=== PATIENT | female | born 1940 | race Caucasian/White ===

== ENCOUNTER → 2019-07-16 10:49 | Outpatient (ROUT) | payer MEDICARE, OTHER, SELFPAY ==
[2019-07-16 11:02] LABS: INR 2.8 (0.9-1.3); Prothrombin Time 31.6 SECONDS (10.1-12.7)
== END ==
PROVIDERS: Visit Provider Student in an Organized Health Care Education/Training Program
DX: Z79.01 Long term (current) use of anticoagulants (principal)
CPT/HCPCS: 85610

== ENCOUNTER → 2020-03-02 15:05 | Outpatient (CLI) | payer MEDICARE, OTHER, SELFPAY ==
--- NOTE | 2020-03-02 | DI.RAD.S_ITS ---
PROCEDURE: XR CHEST 2V INDICATIONS: Other forms of dyspnea TECHNIQUE: 2 views of the chest were acquired. COMPARISON: [facility], , CHEST 1 VIEW, 12/09/2016, 12:48. FINDINGS: Surgical changes and devices: Postsurgical changes from ORIF of the left humeral head and proximal humeral shaft. Lungs and pleura: Mild diffuse interstitial prominence. No focal consolidation. Hyperaeration with flattening of the hemidiaphragms and increased retrosternal clear space compatible with changes of chronic obstructive pulmonary physiology. No pleural effusions or pneumothorax. Mediastinum: Mediastinal contours are stable. Heart size is normal. Large hiatal hernia is again noted. Bones and chest wall: No suspicious bony abnormalities. Soft tissues appear unremarkable. IMPRESSION: 1. Chest without acute cardiopulmonary abnormalities. 2. Findings suggestive of chronic obstructive pulmonary physiology. 3. Large hiatal hernia. Dictated by: Livan Boucher M.D. on 03/02/2020 at 17:01 Approved by: Livan Boucher M.D. on 03/02/2020 at 17:04
== END ==
PROVIDERS: Family Provider Family Medicine; PCP Student in an Organized Health Care Education/Training Program; Referring Provider Student in an Organized Health Care Education/Training Program; Visit Provider Student in an Organized Health Care Education/Training Program
DX: R06.09 Other forms of dyspnea (principal); K44.9 Diaphragmatic hernia without obstruction or gangrene
CPT/HCPCS: 71046

== ENCOUNTER → 2020-03-05 09:52 | Outpatient (CLI) | payer MEDICARE, OTHER, SELFPAY ==
--- NOTE | 2020-03-05 | DI.CT.S_ITS ---
PROCEDURE: CT ABDOMEN PELVIS W CON INDICATIONS: anemia, unspecfied TECHNIQUE: After the administration of intravenous contrast, 5 mm thick sections acquired from the diaphragm to the symphysis. 5 mm coronal and sagittal reformats were acquired. For radiation dose reduction, the following was used: automated exposure control, adjustment of mA and/or kV according to patient size. COMPARISON: None. FINDINGS: Image quality: Excellent. ABDOMEN: Lung bases: Lung bases are clear. Heart size is normal. There is a very large hiatal hernia with gastric inversion open (greater curvature of the stomach directed cephalad close) extending into the lower chest at the midline behind the heart. This is not associated with evidence of gastric ischemic injury or infarction. It likely is chronic. Solid organs: Liver is normal in size and enhancement. Gallbladder appears previously resected . Biliary system is non dilated. Pancreas enhances normally. Spleen is normal in size and enhancement. No adrenal nodules. Kidneys demonstrate normal size and enhancement, without hydronephrosis. Peritoneum and bowel: Bowel loops demonstrate normal wall thickness and caliber. No free fluid or air. Nodes and vessels: No retroperitoneal or mesenteric adenopathy by size criteria. Aorta and inferior vena cava are normal in size. Miscellaneous: No ventral hernias. PELVIS: Genitourinary: Bladder wall thickness is normal. Miscellaneous: No inguinal hernias or adenopathy. Bones: No suspicious bony lesions. No vertebral body compression fractures. IMPRESSION: Gastric inversion noted with a very large associated hiatal hernia extending into the lower chest at the midline posteriorly. At this time ischemic injury is not found. An area of gastric ulceration is not identified. Episodic ischemic injury related to this degree of herniation could conceivably explain episodic blood loss. There is potential risk of gastric infarction in the setting of this degree of gastric inversion. Surgical consultation is recommended. Through the visualized colon stool is present to the degree that accurate detection of a colonic malignancy would be very limited. Prior cholecystectomy. Dictated by: Eric Jiménez M.D. on 03/05/2020 at 11:53 Approved by: Eric Jiménez M.D. on 03/05/2020 at 11:56
== END ==
PROVIDERS: Family Provider Family Medicine; PCP Student in an Organized Health Care Education/Training Program; Referring Provider Student in an Organized Health Care Education/Training Program; Visit Provider Student in an Organized Health Care Education/Training Program
DX: D64.9 Anemia, unspecified (principal); K44.9 Diaphragmatic hernia without obstruction or gangrene; K31.89 Other diseases of stomach and duodenum; Z90.49 Acquired absence of other specified parts of digestive tract
CPT/HCPCS: 74177

== ENCOUNTER 2020-03-22 16:57 | Observation (INO) | payer MEDICARE, OTHER, SELFPAY ==
[2020-03-22] VITALS (21 sets, daily range): BP systolic 117–161; BP diastolic 56–77; PULSE 82–113; RESP 12–32; TEMP 36.4–37.4; O2SAT 98–100; BMI 34.8
--- NOTE | 2020-03-22 17:13 | DI.RAD.S_ITS ---
PROCEDURE: XR CHEST 1V INDICATIONS: chest pain TECHNIQUE: One view of the chest was acquired. COMPARISON: [facility], CHEST 1 VIEW, 07/17/2013, 13:18. [facility], CHEST 1 VIEW, 12/09/2016, 12:48. [facility], , XR CHEST 2V, 03/02/2020, 14:11. FINDINGS: Surgical changes and devices: There is partial visualization left proximal humeral hardware. A remote left proximal humerus fracture can be seen. Lungs and pleura: On this semiupright portable chest examination, no large pneumothorax or large pleural effusions are seen. No focal infiltrates are seen. Mediastinum: The cardiac contours are within normal limits. The aorta demonstrates calcification and tortuosity. A large hiatal hernia is seen, with an air-fluid. Bones and chest wall: No suspicious bony lesions. Age-appropriate bony degenerative changes are seen. Overlying soft tissues appear unremarkable. IMPRESSION: No acute cardiopulmonary process is seen. Large hiatal hernia, with an air-fluid level. Postoperative and degenerative changes are seen. Dictated by: Refugio Mckee M.D. on 03/22/2020 at 17:29 Approved by: Refugio Mckee M.D. on 03/22/2020 at 17:30
--- NOTE | 2020-03-22 17:27 | ED_ITS ---
HPI - GI Bleed General Chief complaint: GI Bleed Stated complaint: Low Oxygen And Hemoglobin, Sent By Dr Messer Time Seen by Provider: 03/22/20 17:00 Source: patient Mode of arrival: Wheelchair History of Present Illness HPI Narrative: 79-year-old femaleNonsmoker with history of chronic anemia, on Eliquis for prior DVT presents at the request of Oncology after noting her to be significantly short of breath and fatigued with minimal exertion. She was sent there for referral and is scheduled for iron infusion starting on Sunday. She has become so short of breath that she cannot even walk across the room. She has had the cough as noted but no fever or chills. Related Data Home Medications Medication Instructions Recorded Confirmed Eliquis 5 mg BID #0 12/09/16 03/22/20 citalopram 20 mg PO DAILY 03/22/20 03/22/20 omeprazole 20 mg PO DAILY 03/22/20 03/22/20 Previous Rx's Medication Instructions Recorded hydrocodone-acetaminophen [[place]ion] 1 - 2 tab PO Q6HP PRN #20 tab 12/09/16 Allergies Allergy/AdvReac Type Severity Reaction Status Date / Time codeine [CODEINE] Allergy Unknown Unverified 09/05/17 12:11 Penicillins [PENICILLINS] Allergy Unknown Unverified 09/05/17 12:11 Review of Systems Constitutional Constitutional: Denies chills, Denies fatigue, Denies fever(s), Denies frequent falls, Denies lethargy and Reports weakness Eyes Eyes: Denies change in vision, Denies eye discharge, Denies irritation and Denies loss of vision ENT Ears, Nose, Mouth, and Throat: Denies change in voice, Denies dizziness, Denies neck pain, Denies sore throat and Denies throat swelling Cardiovascular Cardiovascular: Denies chest pain, Denies irregular heart rhythm, Denies lightheadedness, Denies palpitations, Reports dyspnea, Denies dyspnea on exertion and Denies orthopnea Respiratory Respiratory: Denies cough, Reports dyspnea, Denies dyspnea on exertion and Denies wheezing Gastrointestinal Gastrointestinal: Denies abdominal pain, Denies change in bowel habits, Denies diarrhea, Denies nausea and Denies vomiting Musculoskeletal Musculoskeletal: Denies neck pain and Denies numbness Integumentary/Breasts Skin/Breast: Denies pruritus, Denies erythema, Denies rash and Denies wounds Neurologic Neurologic: Denies behavioral changes, Denies confusion, Denies dizziness, Denies frequent falls, Denies loss of vision, Denies numbness and Reports weakness Psychiatric Psychiatric: Denies anxiety, Denies behavioral changes, Denies confusion, Denies depression, Denies homicidal ideation and Denies suicidal ideation Endocrine Endocrine: Denies fatigue, Denies flushing and Denies palpitations Hematologic/Lymphatic Hematologic/Lymphatic: Denies easy bruising Allergic/Immunologic Allergic/Immunologic: Denies urticaria, Denies throat swelling and Denies wh eezing Patient History Medical History Bilateral arm fractures (Acute) Factor V Leiden (Acute) GERD (gastroesophageal reflux disease) (Acute) Hiatal hernia (Acute) Migraine (Acute) Rectocele (Acute) Recurrent deep vein thrombosis (DVT) (Acute) Surgical History History of cholecystectomy (Acute) History of colonoscopy (Acute) History of esophagogastroduodenoscopy (EGD) (Acute) Social History household members: spouse Smoking Status: Never smoker alcohol intake: never Smoking Status: Never smoker Alcohol type: wine Substance Use Type: does not use Exam Narrative Exam Narrative: GENERAL: [79] year old patient appears stated age. Well- nourished, well-developed patient, in mild distress. Minimal exertion results in significant shortness of breath and fatigue HEAD: Atraumatic. Normocephalic. EYES: Pale conjunctiva Pupils equal round and reactive. Extraocular motions intact. No scleral icterus. No injection or drainage. ENT: Nose without bleeding, purulent drainage. Throat without erythema, tonsillar hypertrophy or exudate. Airway patent. NECK: Trachea midline. Non tender CARDIOVASCULAR: Regular rate and rhythm without murmurs, gallops, or rubs. RESPIRATORY: Clear to auscultation. Breath sounds equal bilaterally. No wheezes, rales, or rhonchi. GASTROINTESTINAL: Abdomen soft, non-tender, nondistended. EXTREMITIES: No edema or joint tenderness. BACK: Nontender without deformity or crepitance. No flank tenderness. NEURO: AOx3. SKIN: No rash or erythema of visible areas Initial Vital Signs Initial Vital Signs: Vital Signs Temperature 98.4 F 03/22/20 17:11 Pulse Rate 87 03/22/20 17:11 Respiratory Rate 24 03/22/20 17:11 Blood Pressure 143/72 H 03/22/20 17:11 Pulse Oximetry 100 03/22/20 17:11 Course Orders Ordered: Acetaminophen (Tylenol) 650 mg PO Q6HR PRN PRN Reason: Fever and pain Hydrocodone Bitart/Acetaminophen (Marion 5/325) 1 tab PO Q6H PRN PRN Reason: Pain, Mild (1-3) Citalopram Hydrobromide (Celexa) 20 mg PO DAILY [facility] Naloxone HCl (Narcan) 0.2 mg IV Q2MIN PRN PRN Reason: Opiate Reversal Pantoprazole Sodium (Protonix) 40 mg IV BID [facility] Discontinued Medications Iron Sucrose 200 mg/ Sodium (Chloride) 110 mls @ 220 mls/hr IV NOW ONE Stop: 03/23/20 07:26 Pantoprazole Sodium (Protonix) 20 mg PO DAILY [facility] Consultations Consultation #1: Call to Dr. Jones Vital Signs Vital signs: Vital Signs - 8 hr 03/22/20 17:11 03/22/20 17:15 03/22/20 17:30 Temperature 98.4 F Pulse Rate 92 H 88 82 Respiratory Rate 28 H 24 12 Blood Pressure 143/72 H Pulse Oximetry 99 98 100 03/22/20 17:31 03/22/20 17:45 03/22/20 18:00 Temperature Pulse Rate 85 84 93 H Respiratory Rate 18 22 20 Blood Pressure 117/56 L 120/56 L Pulse Oximetry 99 100 99 03/22/20 18:15 03/22/20 18:30 03/22/20 18:31 Temperature Pulse Rate 87 91 H 90 Respiratory Rate 20 32 H Blood Pressure 154/77 H Pulse Oximetry 100 100 100 03/22/20 18:45 Temperature Pulse Rate 89 Respiratory Rate 24 Blood Pressure Pulse Oximetry 100 MDM - GI Bleed Lab Data Result diagrams: 03/22/20 17:21 03/22/20 17:21 Labs: Lab Results 03/22/20 03/22/20 03/22/20 Range/Units 17:21 17:21 17:21 WBC 6.3 (4.5-11.0) X10^3/uL RBC 3.04 L (4.0-5.2) X10^6/uL Hgb 5.1 L* (12.0-16.0) g/dL Hct 18.4 L* (36-46) % MCV 60.4 L (80-100) fL MCH 16.9 L (26-34) PG MCHC 28.0 L (30-36) % RDW 22.0 H (11.6-14.8) % Plt Count 243 (150-400) X10^3/uL Neut % (Auto) 64.8 (50-75) % Lymph % (Auto) 23.1 L (25-40) % [place] % (Auto) 8.0 (3-14) % Eos % (Auto) 2.2 (2-4) % Baso % (Auto) 1.9 (0-2) % Neut # (Auto) 4100 (7771-4516) /uL Lymph # (Auto) 1500 (8418-5911) /uL [place] # (Auto) 500 (0-900) /uL Eos # (Auto) 100 (0-450) /uL Baso # (Auto) 100 (0-100) /uL RBC Morphology See below Polychromasia 2+ H Hypochromasia 3+ H Microcytosis 3+ H PT 12.9 H (10.1-12.7) SECONDS INR 1.1 (0.9-1.3) APTT 27 (26.4-36.2) SECONDS Sodium 139 (137-145) mmol/L Potassium 3.8 (3.4-5.1) mmol/L Chloride 107 (98-107) mmol/L Carbon Dioxide 27 (22-32) mmol/L BUN 12 (7-17) mg/dL Creatinine 0.70 (0.52-1.04) mg/dL Estimated GFR > 60.0 (>60) mL/min BUN/Creatinine Ratio 17.1 (6-22) Glucose 111 H (80-110) mg/dL Calcium 8.4 (8.4-10.2) mg/dL Magnesium 2.2 (1.6-2.3) mg/dL Total Bilirubin 0.3 (0.2-1.3) mg/dL AST 22 (14-36) IU/L ALT 11 (<35) IU/L Alkaline Phosphatase 105 (38-126) U/L Total Creatine Kinase 67 (30-135) U/L CK-MB (CK-2) TNP CK-MB (CK-2) Rel Index TNP Troponin I < 0.012 (0.01-0.034) ng/mL NT-Pro-B Natriuret Pep (<450) pg/mL Total Protein 6.9 (6.3-8.2) g/dL Albumin 3.7 (3.5-5.0) g/dL Globulin 3.2 (1.7-4.1) g/dL Albumin/Globulin Ratio 1.2 (1.0-2.8) Lipase 42 (23-300) U/L Procalcitonin (<0.5) ng/mL COVID-19 PCR (Negative) Blood Type Antibody Screen Crossmatch 03/22/20 03/22/20 03/22/20 Range/Units 17:21 17:21 17:21 WBC (4.5-11.0) X10^3/uL RBC (4.0-5.2) X10^6/uL Hgb (12.0-16.0) g/dL Hct (36-46) % MCV (80-100) fL MCH (26-34) PG MCHC (30-36) % RDW (11.6-14.8) % Plt Count (150-400) X10^3/uL Neut % (Auto) (50-75) % Lymph % (Auto) (25-40) % [place] % (Auto) (3-14) % Eos % (Auto) (2-4) % Baso % (Auto) (0-2) % Neut # (Auto) (9029-1832) /uL Lymph # (Auto) (1942-0522) /uL [place] # (Auto) (0-900) /uL Eos # (Auto) (0-450) /uL Baso # (Auto) (0-100) /uL RBC Morphology Polychromasia Hypochromasia Microcytosis PT (10.1-12.7) SECONDS INR (0.9-1.3) APTT (26.4-36.2) SECONDS Sodium (137-145) mmol/L Potassium (3.4-5.1) mmol/L Chloride (98-107) mmol/L Carbon Dioxide (22-32) mmol/L BUN (7-17) mg/dL Creatinine (0.52-1.04) mg/dL Estimated GFR (>60) mL/min BUN/Creatinine Ratio (6-22) Glucose (80-110) mg/dL Calcium (8.4-10.2) mg/dL Magnesium (1.6-2.3) mg/dL Total Bilirubin (0.2-1.3) mg/dL AST (14-36) IU/L ALT (<35) IU/L Alkaline Phosphatase (38-126) U/L Total Creatine Kinase (30-135) U/L CK-MB (CK-2) CK-MB (CK-2) Rel Index Troponin I (0.01-0.034) ng/mL NT-Pro-B Natriuret Pep 438 (<450) pg/mL Total Protein (6.3-8.2) g/dL Albumin (3.5-5.0) g/dL Globulin (1.7-4.1) g/dL Albumin/Globulin Ratio (1.0-2.8) Lipase (23-300) U/L Procalcitonin < 0.05 (<0.5) ng/mL COVID-19 PCR (Negative) Blood Type A Positive Antibody Screen Negative Crossmatch See Detail 03/22/20 Range/Units 17:21 WBC (4.5-11.0) X10^3/uL RBC (4.0-5.2) X10^6/uL Hgb (12.0-16.0) g/dL Hct (36-46) % MCV (80-100) fL MCH (26-34) PG MCHC (30-36) % RDW (11.6-14.8) % Plt Count (150-400) X10^3/uL Neut % (Auto) (50-75) % Lymph % (Auto) (25-40) % [place] % (Auto) (3-14) % Eos % (Auto) (2-4) % Baso % (Auto) (0-2) % Neut # (Auto) (9987-6090) /uL Lymph # (Auto) (1277-2175) /uL [place] # (Auto) (0-900) /uL Eos # (Auto) (0-450) /uL Baso # (Auto) (0-100) /uL RBC Morphology Polychromasia Hypochromasia Microcytosis PT (10.1-12.7) SECONDS INR (0.9-1.3) APTT (26.4-36.2) SECONDS Sodium (137-145) mmol/L Potassium (3.4-5.1) mmol/L Chloride (98-107) mmol/L Carbon Dioxide (22-32) mmol/L BUN (7-17) mg/dL Creatinine (0.52-1.04) mg/dL Estimated GFR (>60) mL/min BUN/Creatinine Ratio (6-22) Glucose (80-110) mg/dL Calcium (8.4-10.2) mg/dL Magnesium (1.6-2.3) mg/dL Total Bilirubin (0.2-1.3) mg/dL AST (14-36) IU/L ALT (<35) IU/L Alkaline Phosphatase (38-126) U/L Total Creatine Kinase (30-135) U/L CK-MB (CK-2) CK-MB (CK-2) Rel Index Troponin I (0.01-0.034) ng/mL NT-Pro-B Natriuret Pep (<450) pg/mL Total Protein (6.3-8.2) g/dL Albumin (3.5-5.0) g/dL Globulin (1.7-4.1) g/dL Albumin/Globulin Ratio (1.0-2.8) Lipase (23-300) U/L Procalcitonin (<0.5) ng/mL COVID-19 PCR Negative (Negative) Blood Type Antibody Screen Crossmatch Discharge Plan Departure Patient Disposition: Admitted as Observation Clinical Impression: Anemia Discharge Date/Time: 03/22/20 19:40 Referrals: Verenice Coulter MD [Primary Care Provider] - Admit Date/Time: 03/22/20 19:55 Admit Provider: Verenice Coulter
[2020-03-22 17:39] LABS: INR 1.1 (0.9-1.3); Prothrombin Time 12.9 SECONDS (10.1-12.7)
[2020-03-22 17:41] LABS: PTT Partial Thromboplastin Tim 27 SECONDS (26.4-36.2)
[2020-03-22 17:46] LABS: COVID19 -Nasal RAPID Negative (Negative)
[2020-03-22 17:48] LABS: Add Manual Diff / Slide Review NO; Alanine Aminotransferase 11 IU/L (<35); Albumin 3.7 g/dL (3.5-5.0); Albumin Globulin Ratio 1.2 (1.0-2.8); Alkaline Phosphatase 105 U/L (38-126); Aspartate Aminotransferase 22 IU/L (14-36); BUN Creatinine Ratio 17.1 (6-22); Basophils Absolute Auto 100 /uL (0-100); Basophils Percent Auto 1.9 % (0-2); Bilirubin Total 0.3 mg/dL (0.2-1.3); Blood Urea Nitrogen 12 mg/dL (7-17); Calcium 8.4 mg/dL (8.4-10.2); Carbon Dioxide 27 mmol/L (22-32); Chloride 107 mmol/L (98-107); Creatine Kinase 67 U/L (30-135); Eosinophils Absolute Auto 100 /uL (0-450); Eosinophils Percent Auto 2.2 % (2-4); Estimated Glomerular Filt Rate > 60.0 mL/min (>60); Globulin 3.2 g/dL (1.7-4.1); Glucose 111 mg/dL (80-110); HEMOLYSIS < 15 (0-50); Lipase 42 U/L (23-300); Lymphocytes Absolute Auto 1500 /uL (1100-4500); Lymphocytes Percent Auto 23.1 % (25-40); Magnesium 2.2 mg/dL (1.6-2.3); Mean Corpuscular Hemoglobin 16.9 PG (26-34); Mean Corpuscular Volume 60.4 fL (80-100); Monocytes Absolute Auto 500 /uL (0-900); Neutrophils Absolute Auto 4100 /uL (1500-7000); Neutrophils Percent Auto 64.8 % (50-75); Platelet Count 243 X10^3/uL (150-400); Potassium 3.8 mmol/L (3.4-5.1); Red Blood Cell Count 3.04 X10^6/uL (4.0-5.2); Sodium 139 mmol/L (137-145); Total Protein 6.9 g/dL (6.3-8.2); White Blood Cell Count 6.3 X10^3/uL (4.5-11.0)
[2020-03-22 17:53] LABS: NT-proBNP (BNP-Adult 18+) 438 pg/mL (<450)
[2020-03-22 17:57] LABS: Hematocrit 18.4 % (36-46); Hemoglobin 5.1 g/dL (12.0-16.0)
[2020-03-22 17:59] LABS: Troponin I < 0.012 ng/mL (0.01-0.034)
[2020-03-22 18:09] LABS: Procalcitonin < 0.05 ng/mL (<0.5)
[2020-03-22 18:19] LABS: Hypochromasia 3+; Microcytosis 3+; Polychromasia 2+
--- NOTE | 2020-03-22 23:43 | PC.NURSE ---
Patient admitted from ER. C/O shortness of breath on exertion and itchiness. Patient' SpO2 in 90's% on RA, no complaints of pain, mildly elevated BP. Small skin tears from scratching noted on outer arm, outer leg, and chest. First unit of PRBCs was started in ER and finished on floor, second unit started and handed off to shift boss RN. spoke with Dr. De Los Santos who said medication orders would be added in the morning- patient states she took all her daily meds already today. Patient is A/Ox4 and able to use call light appropriately.
[2020-03-23] VITALS (12 sets, daily range): BP systolic 126–165; BP diastolic 63–81; PULSE 71–100; RESP 12–20; TEMP 36.4–37.2; O2SAT 93–96
--- NOTE | 2020-03-23 00:38 | PC.NURSE ---
Pt alert and oriented x4. Denies any pain. Upto bsc 1pa. Pt reports slightly dizzy getting out of bed but no more shortness of breath at this time. 2 unit of PRBC finishing now. Voiding to BSC without issues. No complaints at this time. TM
--- NOTE | 2020-03-23 05:22 | P.HP_ITS ---
History of Present Illness History of Present Illness Date Patient Seen: 03/23/20 Time Patient Seen: 05:22 Chief complaint: Low Oxygen And Hemoglobin, Sent By Dr Messer Narrative: 79-year-old female, nonsmoker with history of chronic anemia, on Eliquis for prior DVT presents at the request of Oncology after noting her to be significantly short of breath and fatigued with minimal exertion. She does have a history of chronic iron deficiency anemia and was supposed to start receiving iron transfusions tomorrow. She had become so short of breath that she could not even walk across the room. Otherwise, at baseline except for cough, COVID negative. Vital signs upon admission to the ED include temperature of 98.4, pulse 87, respirations 24, blood pressure 143/72, 100% on room air. Lab workup significant for hemoglobin/hematocrit of 5.1/18.4, microcytic/microchromic. BNP was notably negative at 438. Electrolytes were unremarkable. She was transfused 2 units of blood and transferred to the ICU. She has had an uneventful night. Patient History Medical History Bilateral arm fractures (Acute) Factor V Leiden (Acute) GERD (gastroesophageal reflux disease) (Acute) Hiatal hernia (Acute) Migraine (Acute) Rectocele (Acute) Recurrent deep vein thrombosis (DVT) (Acute) Surgical History History of cholecystectomy (Acute) History of colonoscopy (Acute) History of esophagogastroduodenoscopy (EGD) (Acute) Family & Social History Social History: household members spouse Prior Living Arrangements House Safety & Behavioral: Feels Safe in Current Yes Environment Been Physically Hurt or No Threatened By a Person Suicidal Ideation Description None Suicide Plan Description No Plan Tobacco & Substance use: Smoking Status Never smoker alcohol intake never Substance Use Type does not use Meds Home Medications and Allergies Home Medications Medication Instructions Recorded Confirmed Type Eliquis 5 mg BID #0 12/09/16 03/22/20 History hydrocodone-acetaminophen [[place]] 1 - 2 tab PO Q6HP PRN #20 tab 12/09/16 Rx citalopram 20 mg PO DAILY 03/22/20 03/22/20 History omeprazole 20 mg PO DAILY 03/22/20 03/22/20 History Allergies Allergy/AdvReac Type Severity Reaction Status Date / Time codeine [CODEINE] Allergy Unknown Unverified 09/05/17 12:11 Penicillins [PENICILLINS] Allergy Unknown Unverified 09/05/17 12:11 Review of Systems Review of Systems ROS: Yes All systems reviewed with the patient and are negative except as otherwise documented Exam Vital Signs (past 8 hours): - 03/22/20 21:57 03/22/20 22:13 03/22/20 23:33 Temperature 98.5 F 98.8 F 99.3 F Pulse Rate 82 84 86 Respiratory Rate 15 14 18 Blood Pressure 144/65 H 135/61 143/68 H Pulse Oximetry 98 03/23/20 00:41 03/23/20 05:03 Temperature 98 F 98.0 F Pulse Rate 80 83 Respiratory Rate 12 18 Blood Pressure 165/76 H 153/70 H Pulse Oximetry 93 Oxygen Delivery Method Room Air Oxygen Flow Rate 0 Narrative Exam Narrative: GENERAL: Alert and oriented, appearing stated age and in no acute distress. HEENT: Head normocephalic/atraumatic. Pupils equal, round, and reactive to light and accomodation. Extraocular muscles intact. Tympanic membranes clear. Nasal mucosa moist, septum midline. Oral mucosa moist, no lesions. Neck soft and supple, no lymphadenopathy. LUNGS: Clear to ausculation bilaterally, no wheezes, rhonchi or rales. CV: Normal S1 and S2 with regular rate and rhythm, no audible murmurs, rubs or gallops. ABDOMEN: Soft, non-tender, non-distended, no organomegaly. Positive bowel sounds. EXTREMITIES: No clubbing, cyanosis, or edema. NEURO: Cranial nerves II through XII grossly intact, no focal deficits. PSYCH: Alert and oriented x 3. SKIN: No concerning lesions. Objective Labs Result Diagrams: 03/23/20 07:50 03/22/20 17:21 Labs: Laboratory Results - last 24 hr 03/22/20 03/22/20 03/22/20 17:21 17:21 17:21 WBC 6.3 RBC 3.04 L Hgb 5.1 L* Hct 18.4 L* MCV 60.4 L MCH 16.9 L MCHC 28.0 L RDW 22.0 H Plt Count 243 Neut % (Auto) 64.8 Lymph % (Auto) 23.1 L [place] % (Auto) 8.0 Eos % (Auto) 2.2 Baso % (Auto) 1.9 Neut # (Auto) 4100 Lymph # (Auto) 1500 [place] # (Auto) 500 Eos # (Auto) 100 Baso # (Auto) 100 RBC Morphology See below Polychromasia 2+ H Hypochromasia 3+ H Microcytosis 3+ H PT 12.9 H INR 1.1 APTT 27 Sodium 139 Potassium 3.8 Chloride 107 Carbon Dioxide 27 BUN 12 Creatinine 0.70 Estimated GFR > 60.0 BUN/Creatinine Ratio 17.1 Glucose 111 H Calcium 8.4 Magnesium 2.2 Total Bilirubin 0.3 AST 22 ALT 11 Alkaline Phosphatase 105 Total Creatine Kinase 67 CK-MB (CK-2) TNP CK-MB (CK-2) Rel Index TNP Troponin I < 0.012 NT-Pro-B Natriuret Pep Total Protein 6.9 Albumin 3.7 Globulin 3.2 Albumin/Globulin Ratio 1.2 Lipase 42 Procalcitonin Nasal Screen MRSA (PCR) COVID-19 PCR Blood Type Antibody Screen Crossmatch 03/22/20 03/22/20 03/22/20 17:21 17:21 17:21 WBC RBC Hgb Hct MCV MCH MCHC RDW Plt Count Neut % (Auto) Lymph % (Auto) [place] % (Auto) Eos % (Auto) Baso % (Auto) Neut # (Auto) Lymph # (Auto) [place] # (Auto) Eos # (Auto) Baso # (Auto) RBC Morphology Polychromasia Hypochromasia Microcytosis PT INR APTT Sodium Potassium Chloride Carbon Dioxide BUN Creatinine Estimated GFR BUN/Creatinine Ratio Glucose Calcium Magnesium Total Bilirubin AST ALT Alkaline Phosphatase Total Creatine Kinase CK-MB (CK-2) CK-MB (CK-2) Rel Index Troponin I NT-Pro-B Natriuret Pep 438 Total Protein Albumin Globulin Albumin/Globulin Ratio Lipase Procalcitonin < 0.05 Nasal Screen MRSA (PCR) COVID-19 PCR Blood Type A Positive Antibody Screen Negative Crossmatch See Detail 03/22/20 03/22/20 17:21 20:00 WBC RBC Hgb Hct MCV MCH MCHC RDW Plt Count Neut % (Auto) Lymph % (Auto) [place] % (Auto) Eos % (Auto) Baso % (Auto) Neut # (Auto) Lymph # (Auto) [place] # (Auto) Eos # (Auto) Baso # (Auto) RBC Morphology Polychromasia Hypochromasia Microcytosis PT INR APTT Sodium Potassium Chloride Carbon Dioxide BUN Creatinine Estimated GFR BUN/Creatinine Ratio Glucose Calcium Magnesium Total Bilirubin AST ALT Alkaline Phosphatase Total Creatine Kinase CK-MB (CK-2) CK-MB (CK-2) Rel Index Troponin I NT-Pro-B Natriuret Pep Total Protein Albumin Globulin Albumin/Globulin Ratio Lipase Procalcitonin Nasal Screen MRSA (PCR) Negative for mrsa COVID-19 PCR Negative Blood Type Antibody Screen Crossmatch Assessment & Plan Assessment & Plan narrative: 1. Acute symptomatic iron deficiency anemia, microcytic/microchromic -Status post 2 units of PRBCs in the ED. -Oncology consulting as outpatient. Plan: Will trend CBC today and continue to replete PRBCs as needed. Will also give iron transfusion today. Stool guaiac. 2. History of DVT Plan: Holding Eliquis while awaiting stool guaiac to rule out concurrent bleed, unlikely. In the meantime, SCDs. Will encourage ambulation and PT as tolerated. 3. GERD, chronic Plan: IV Protonix. 4. Depression/anxiety, chronic Plan: Continue home citalopram. Code: Full GI prophylaxis: IV Protonix DVT prophylaxis: SCDs COVID: Negative
[2020-03-23 08:12] LABS: Hematocrit 22.3 % (36-46); Mean Corpuscular HGB Conc 30.7 % (30-36); Mean Corpuscular Hemoglobin 20.7 PG (26-34); Mean Corpuscular Volume 67.5 fL (80-100); Platelet Count 188 X10^3/uL (150-400); Red Blood Cell Count 3.31 X10^6/uL (4.0-5.2); Red Cell Distribution Width 29.5 % (11.6-14.8); White Blood Cell Count 5.2 X10^3/uL (4.5-11.0)
[2020-03-23 08:16] LABS: Hemoglobin 6.9 g/dL (12.0-16.0)
[2020-03-23] MEDS: IRON SUCROSE 200 MG in SODIUM CHLORIDE 0.9% 100 ML 220 ML IV (08:23)
[2020-03-23 08:56] LABS: Neutrophils Absolute Manual 3640 /uL (3000-5900); Total Cells Counted 100
[2020-03-23 08:57] LABS: Anisocytosis 3+; Hypochromasia 2+; Polychromasia 1+
[2020-03-23] MEDS: ACETAMINOPHEN 325 MG TABLET 650 MG PO (09:40)
[2020-03-23] MEDS: diphenhydrAMINE 25 MG TABLET PO (09:40)
[2020-03-23] MEDS: PANTOPRAZOLE 40 MG VIAL IV ×2 (09:41→21:39)
[2020-03-23] MEDS: FUROSEMIDE 20 MG/2 ML VIAL IV (09:41)
[2020-03-23] MEDS: CITALOPRAM 10 MG TABLET 20 MG PO (09:41)
--- NOTE | 2020-03-23 11:19 | PT.IPTN ---
Physical Therapy Treatment Note M3 PT-IP Subjective Start: 03/23/20 12:42 Freq: NEEDED Status: Active Protocol: Document 03/23/20 11:19 AB (Rec: 03/23/20 12:45 AB [id number]) Subjective Physical Therapy Visit Type Notes pt currently is receiving blood transfusion. PLOF and home set up obtained and will recheck on pt after blood transfusion is completed.
--- NOTE | 2020-03-23 13:35 | CM.DANOTE ---
Discharge Planning/Care Management DCP: continued: case received, EMR reviewed and met with pt. Introduced self and role. Pt is an 79 year old female who admitted to care of PCP DR. Coulter after being advised by [facility] Dr. Messer to present to the ER. Payer: Medicare and for Life Admission status: OBS: confirmed by UR RN Chivo. Pt confirms she is functionally independent with cane use (in room). Her had brought her to the Onc center to see Dr. Messer and set up a plan for IV iron infusion. Today she is receiving blood and also the iron infusion as planned. Anticipate she will d/c to home setting in [place] with her , who is expected to pick her up at d/c. DCP team will follow prn for any d/c needs that may arise. CM Discharge Assessment Start: 03/23/20 13:33 Freq: Status: Active Protocol: Document 03/23/20 13:33 ITV (Rec: 03/23/20 13:34 ITV [id number]) Discharge Planning Assessment Advance Directives? No History Provided By Patient,Medical Record Prior Living Arrangements House Household Members spouse Independent with ADL's Yes Is patient alert and oriented? Yes DME Already Rented / Owned Cane Review Status In Process
--- NOTE | 2020-03-23 14:45 | PT.IIE ---
Surgical History (Last Reviewed 03/22/20 @ 18:49 by Keagan Chavez DO) History of cholecystectomy (Acute) History of colonoscopy (Acute) History of esophagogastroduodenoscopy (EGD) (Acute) Medical History (Last Reviewed 03/22/20 @ 18:49 by Keagan Chavez DO) Bilateral arm fractures (Acute) Factor V Leiden (Acute) GERD (gastroesophageal reflux disease) (Acute) Hiatal hernia (Acute) Migraine (Acute) Rectocele (Acute) Recurrent deep vein thrombosis (DVT) (Acute) Physical Therapy Inpatient Evaluation/Re-Eval M1 PT/OT-IP Prior Functional Status Start: 03/23/20 12:42 Freq: NEEDED Status: Active Protocol: Document 03/23/20 14:45 AB (Rec: 03/23/20 15:34 AB [email or web address]) Medical Review Prior Functional Status Medical History Reviewed Yes Communication able to make needs known Mobility and Gait pt stated that she is modified independent with all mobilities. ambulates without AD indoors but uses a SPC for outdoor mobility Social History Household Members spouse Living Arrangements House Number of Floors (Floors) One Floor Number of Stairs To Enter/Railing? 2 steps to enter without rails but has brick window sill ledges that he holds on to or at times, spouse assists pt Home Environment Standard Height Toilet,Walk in Shower Home Equipment Straight Cane,Grab Bars Near Toilet,Grab Bars In Shower M2 PT-IP Current Condition Start: 03/23/20 12:42 Freq: NEEDED Status: Active Protocol: Document 03/23/20 14:45 AB (Rec: 03/23/20 15:34 AB [email or web address]) Physical Therapy Current Condition Current Condition Evaluation Date 03/23/20 Treatment Diagnosis anemia; generalized weakness Onset Date 03/22/20 M3 PT-IP Subjective Start: 03/23/20 12:42 Freq: NEEDED Status: Active Protocol: Document 03/23/20 14:45 AB (Rec: 03/23/20 15:34 AB [email or web address]) Subjective Physical Therapy Visit Type Type Initial Evaluation Visit Start Time 14:45 Visit Stop Time 15:07 Total Visit Minutes 22 Notes checked with nurse and pt already completed her blood transfusion. stated that pt have chronic anemia and has been getting up with nursing. Number of IMMIGRATION GUARD Visits 0 Physical Therapy Visit Comments Patient Comments pt is agreeable to do PT Therapy Pain Assessment Pain Present Pain Present Denied Pain M4 PT-IP Mobility and Gait Start: 03/23/20 12:42 Freq: NEEDED Status: Active Protocol: Document 03/23/20 14:45 AB (Rec: 03/23/20 15:34 AB [email or web address]) PT-Bed Mobility Assessment Supine to Sit Supine to Sit Standby Assistance PT-Transfer Assessment Sit to and From Stand Sit to and from Stand Standby Assistance Equipment Transfer Assistive Device None,Gait Belt Orthotic/Prosthetic Devices or Brace: No Transfer Ability Level of Assist Standby Assistance,Contact Guard Assistance Comments Mobility Comments pt s/p blood transfusion but nurse stated that they have been getting pt up to use the toilet. pt completed bed mobility supine to sit SBA and ambulated in room without AD ~ 25 ft SBA to CGA with (+) LOB towards the R requiring CGA for safety and stability. pt agreed to do steps and completed up/down foot stool using SPC min A. nurse stated that pt will change rooms. Pt ambulated to new room using SPC SBA ~ 75 ft. sat on window bench but requested to use the toilet and ambulated to the toilet using SPC SBA. NAC took over. Gait Assessment Gait Gait Assistance Required: Standby Assistance,Contact Guard Assist Distance (Feet) 75 Able to Maintain Weight Bearing Status Yes During Gait Assistive Devices Assistive Device None,Gait Belt,Straight Cane Orthotic/Prosthetic Devices or Brace: Yes Gait Deviations General Gait Pattern Decreased Stride Length, Decreased Feet Clearance Factors Limiting Gait Function Factors Limiting Gait Function Decreased Activity Tolerance, Decreased Strength,Poor Balance,Poor Safety Awareness Comments Gait Comments pls refer to mobility section for details Stair Climbing Assessment Evaluation Level of Assist On Stairs Minimal Assistance Devices Stair Climbing Assistive Devices Straight Cane Technique/Endurance Stair Climbing Direction Ascend and Descend Stair Climbing Technique Step to Step Number of Steps Climbed 1 Query Text: Stair Climbing Set # Repetitions (reps) 2 PT-Balance Assessment Sitting Balance and Reactions Static Sitting Balance Ability Good Dynamic Sitting Balance Ability Good Standing Balance and Reactions Static Standing Balance Ability Good Dynamic Standing Balance Ability Fair Device Used without AD M5 PT-IP Objective Assessments Start: 03/23/20 12:42 Freq: NEEDED Status: Active Protocol: Document 03/23/20 14:45 AB (Rec: 03/23/20 15:34 AB [email or web address]) Orientation Orientation/Cognition Level of Alertness Alert Orientation Name,Place,Situation Language Function Ability Hard of Hearing Safety Awareness Decreased Safety Awareness Gross Range of Motion Lower Extremity ROM Assessment Within Functional Limits Strength Lower Extremity Strength Assessment Within Functional Limits Coordination Assessment Gross Coordination Gross Coordination WNL Sensation Assessment Sensation Gross Sensation WNL Muscle Tone Muscle Tone WNL Yes M6 PT-IP Treatment Start: 03/23/20 12:42 Freq: NEEDED Status: Active Protocol: Document 03/23/20 14:45 AB (Rec: 03/23/20 15:34 AB [email or web address]) Physical Therapy Treatment Education Education Provided Safety M7 PT-IP Assessment and Plan Start: 03/23/20 12:42 Freq: NEEDED Status: Active Protocol: Document 03/23/20 14:45 AB (Rec: 03/23/20 15:34 AB [email or web address]) PT Summary Assessment and Plan Potential Rehabilitation Potential Good Status of Condition at Evaluation Stable Summary Impairments Pain,ROM,Strength,Balance,Bed Mobility,Transfers,Gait, Activity Tolerance Assessment Summary pt requiring SBA to CGA with ambulation and min A with stair climbing. pt plans to go home and stated that her spouse will be able to assist her. will continue to assess progress. Goals Bed Mobility Goal Independent Transfer Goal Independent Gait Goal Independent Gait Distance 150 Other Goals up/down 2 steps using SPC CGA Days to Meet Goals 5 Frequency of Treatment Frequency Of Treatment Once a Day Treatment Plan Physical Therapy Treatment Plan Bed Mobility Training,Transfer Training,Gait Training, Therapeutic Exercise,Balance Retraining,Post Op Education, Discharge Planning,Hot or Cold Pack,Neuromuscular Re-ed, Coordination Retraining,Manual Therapy Recommendations To Nursing Amount of Assist Needed 1 Person Assist Discharge Recommendations PT Discharge Recommendations Home with Assistance Transportation Needs at Discharge Private Vehicle
--- NOTE | 2020-03-23 21:54 | PC.NURSE ---
Chest pain: Patient said chest pain woke me up, reported left chest pain which radiated across chest to sternum. Rated pain 7/10, describing as sharp, increasing when she took deep breaths. I notified RT and they did a stat EKG, result sinus rhythm. Pt said pain was slowly lessening after EKG. PRODUCTION SUPPORT SPECIALIST noted no alarm on telemetry, rhythm normal sinus. HR 96, BP 139/73. RA oxygen 94-95% and she denies SOB. After EKG complete I gave patient the IV Protonix which was due. After med, she said her pain was a 1/10 and almost gone. I notified Dr Reyes of event, she ordered to add Troponin & CK to AM labs which I did.
[2020-03-24 04:26] VITALS: BP 147/63; PULSE 86; RESP 16; TEMP 37.5; O2SAT 91
[2020-03-24 05:03] LABS: Creatine Kinase 57 U/L (30-135)
[2020-03-24 05:09] LABS: Hemoglobin 8.1 g/dL (12.0-16.0); Mean Corpuscular HGB Conc 30.1 % (30-36); Mean Corpuscular Hemoglobin 21.3 PG (26-34); Mean Corpuscular Volume 70.6 fL (80-100); Platelet Count 190 X10^3/uL (150-400); Red Blood Cell Count 3.79 X10^6/uL (4.0-5.2); Red Cell Distribution Width 31.2 % (11.6-14.8); White Blood Cell Count 6.6 X10^3/uL (4.5-11.0)
[2020-03-24 05:14] LABS: Hematocrit 26.7 % (36-46)
[2020-03-24 05:15] LABS: Troponin I < 0.012 ng/mL (0.01-0.034)
--- NOTE | 2020-03-24 05:38 | PM.DS.1 ---
History of Present Illness History of Present Illness Chief complaint: Low Oxygen And Hemoglobin, Sent By Dr Messer Narrative: 79-year-old female, nonsmoker with history of chronic anemia, on Eliquis for prior DVT presents at the request of Oncology after noting her to be significantly short of breath and fatigued with minimal exertion. She does have a history of chronic iron deficiency anemia and was supposed to start receiving iron transfusions tomorrow. She had become so short of breath that she could not even walk across the room. Otherwise, at baseline except for cough, COVID negative. Vital signs upon admission to the ED include temperature of 98.4, pulse 87, respirations 24, blood pressure 143/72, 100% on room air. Lab workup significant for hemoglobin/hematocrit of 5.1/18.4, microcytic/microchromic. BNP was notably negative at 438. Electrolytes were unremarkable. She was transfused 2 units of blood and transferred to the ICU. She has had an uneventful night. Discharge Providers Provider Date of admission: 03/22/20 19:55 Discharge Date: 03/24/20 Primary care physician: Verenice Coulter MD Consults: 03/23/20 07:28 Consult to Physical Therapy Evaluate & Treat Comment: Physician Instructions: Evaluate and Treat Discharge provider: Verenice Coulter MD Summary Hospital Course Discharge Diagnosis: 1. Acute symptomatic iron deficiency anemia, microcytic/microchromic 2. History of DVT 3. GERD, chronic 4. Depression/anxiety, chronic Hospital Course: Patient received 3 units of packed red blood cells as well as 1 IV iron transfusion and H/H improved from 5.1/18.4 to 8.1/26.7 on day of discharge. She is feeling ?100% better and is now able to ambulate without feeling short of breath. Otherwise, she is tolerating a regular diet with no nausea or vomiting. On day of discharge, she is afebrile with stable vital signs throughout. She will continue to follow-up at the outpatient setting with hematology/oncology; IV iron transfusions are already scheduled. Plan for follow-up in 1-2 weeks in primary care, CBC needed at that visit. Will try to collect stool guaic as outpatient. Eliquis discontinued during this inpatient stay. Exam Vital Signs (past 8 hours): - 03/23/20 23:51 03/24/20 04:26 Temperature 97.8 F 99.5 F Pulse Rate 92 H 86 Respiratory Rate 20 16 Blood Pressure 139/80 147/63 H Pulse Oximetry 94 91 Oxygen Delivery Method Room Air Oxygen Flow Rate 0 Narrative Exam Narrative: GENERAL: Alert and oriented, appearing stated age and in no acute distress. HEENT: Head normocephalic/atraumatic. Pupils equal, round, and reactive to light and accomodation. Extraocular muscles intact. Tympanic membranes clear. Nasal mucosa moist, septum midline. Oral mucosa moist, no lesions. Neck soft and supple, no lymphadenopathy. LUNGS: Clear to ausculation bilaterally, no wheezes, rhonchi or rales. CV: Normal S1 and S2 with regular rate and rhythm, no audible murmurs, rubs or gallops. ABDOMEN: Soft, non-tender, non-distended, no organomegaly. Positive bowel sounds. EXTREMITIES: No clubbing, cyanosis, or edema. NEURO: Cranial nerves II through XII grossly intact, no focal deficits. PSYCH: Alert and oriented x 3. SKIN: No concerning lesions. Objective Labs Result Diagrams: 03/24/20 04:35 03/22/20 17:21 Labs: Laboratory Results - last 24 hr 03/22/20 03/23/20 03/24/20 17:21 07:50 04:35 WBC 5.2 6.6 RBC 3.31 L 3.79 L Hgb 6.9 L* 8.1 L Hct 22.3 L 26.7 L MCV 67.5 L D 70.6 L D MCH 20.7 L 21.3 L MCHC 30.7 30.1 RDW 29.5 H 31.2 H Plt Count 188 190 Total Counted 100 Seg Neutrophils % 69.0 Band Neutrophils % 1.0 L Lymphocytes % (Manual) 12.0 L Atypical Lymphs % 1.0 H Monocytes % (Manual) 10.0 Eosinophils % (Manual) 7.0 H Neutrophils # (Manual) 3640 Plt Morphology Comment RBC Morphology See below Polychromasia 1+ H Hypochromasia 2+ H Anisocytosis 3+ H Total Creatine Kinase CK-MB (CK-2) CK-MB (CK-2) Rel Index Troponin I Blood Type A Positive Antibody Screen Negative Crossmatch See Detail 03/24/20 04:35 WBC RBC Hgb Hct MCV MCH MCHC RDW Plt Count Total Counted Seg Neutrophils % Band Neutrophils % Lymphocytes % (Manual) Atypical Lymphs % Monocytes % (Manual) Eosinophils % (Manual) Neutrophils # (Manual) Plt Morphology Comment RBC Morphology Polychromasia Hypochromasia Anisocytosis Total Creatine Kinase 57 CK-MB (CK-2) TNP CK-MB (CK-2) Rel Index TNP Troponin I < 0.012 Blood Type Antibody Screen Crossmatch Discharge Plan Discharge Plan Patient Disposition: Home Discharge orders & Medications Prescriptions: Continued hydrocodone-acetaminophen [[place]] 5 MG/325 MG tablet 1 - 2 tab PO Q6HP PRNQty: 20 RF: 0 citalopram 10 mg Tablet 20 mg PO DAILY RF: 0 omeprazole 20 mg Capsule,Delayed Release(Dr/Ec) 20 mg PO DAILY RF: 0 Discontinued Eliquis 5 MG tablet 5 mg BID Qty: 0 RF: 0 Follow up/Referrals: Verenice Coulter MD [Primary Care Provider] - Diet/Activity/Treatments Diet: Diet as Tolerated Activity: as tolerated Skin/Wound/Dressing Care Report to your healthcare provider any signs of infection, such as:: chills, fever and increased pain Visit Report/Discharge Packet Instructions: DI for Iron Deficiency Anemia-Adult Visit Report Forms: Patient Portal/API, Stroke Signs & Symptoms Discharge Data Primary Care Provider: Verenice Coulter Attending Provider: Verenice Coulter Admit Date/Time: 03/22/20 19:55
[2020-03-24 06:56] LABS: Neutrophils Absolute Manual 5082 /uL (3000-5900); Nucleated Red Blood Cells 2 #/Diff; Total Cells Counted 100
[2020-03-24 06:58] LABS: Anisocytosis 3+
[2020-03-24 06:59] LABS: Hypochromasia 2+; Microcytosis 2+; Polychromasia 1+
[2020-03-24 08:05] VITALS: BP 144/85; PULSE 85; RESP 16; TEMP 36.6; O2SAT 97
[2020-03-24] MEDS: SODIUM CHLORIDE 0.9% FLUSH 10 ML IV (08:56)
[2020-03-24] MEDS: CITALOPRAM 10 MG TABLET 20 MG PO (08:56)
[2020-03-24] MEDS: PANTOPRAZOLE 40 MG VIAL IV (08:56)
--- NOTE | 2020-03-24 10:26 | PT.IPTN ---
Physical Therapy Treatment Note M2 PT-IP Current Condition Start: 03/23/20 12:42 Freq: NEEDED Status: Active Protocol: Document 03/23/20 14:45 AB (Rec: 03/23/20 15:34 AB [email or web address]) Physical Therapy Current Condition Current Condition Evaluation Date 03/23/20 Treatment Diagnosis anemia; generalized weakness Onset Date 03/22/20 M3 PT-IP Subjective Start: 03/23/20 12:42 Freq: NEEDED Status: Active Protocol: Document 03/24/20 10:26 AB (Rec: 03/24/20 11:42 AB [id number]) Subjective Physical Therapy Visit Type Type Treatment Note Visit Start Time 10:26 Visit Stop Time 10:40 Total Visit Minutes 14 Number of PREPARER MAKING DEPARTMENT Visits 0 Physical Therapy Visit Comments Patient Comments pt is agreeable to do PT; spouse in room with pt M4 PT-IP Mobility and Gait Start: 03/23/20 12:42 Freq: NEEDED Status: Active Protocol: Document 03/24/20 10:26 AB (Rec: 03/24/20 11:42 AB [id number]) PT-Transfer Assessment Sit to and From Stand Sit to and from Stand Standby Assistance Equipment Transfer Assistive Device Bed Rail,Straight Cane Orthotic/Prosthetic Devices or Brace: No Comments Mobility Comments completed sit to stand from chair SBA and ambulated in the hallway using SPC SBA. (+) SOB and cued for deep breathing. pt ambulated back to room and agreed to do steps . educated spouse on how to assist pt. pt completed up/ down step stool using SPC and spouse assisting. spouse was able to assist pt safely. pt agreed to stay up on chair. positioned pt. call light and table placed within reach. Gait Assessment Gait Gait Assistance Required: Standby Assistance Distance (Feet) 200 Able to Maintain Weight Bearing Status Yes During Gait Assistive Devices Assistive Device Gait Belt,Straight Cane Orthotic/Prosthetic Devices or Brace: No Gait Deviations General Gait Pattern Antalgic Factors Limiting Gait Function Factors Limiting Gait Function Decreased Activity Tolerance, Decreased Strength,Poor Balance Stair Climbing Assessment Evaluation Level of Assist On Stairs Minimal Assistance Devices Stair Climbing Assistive Devices Straight Cane Technique/Endurance Stair Climbing Direction Ascend and Descend Stair Climbing Technique Step to Step Number of Steps Climbed 1 Stair Climbing Set # Repetitions (reps) 1 Comments Stair Climbing Comments pt completed with SPC and DIVISION HEAD min A from spouse M5 PT-IP Objective Assessments Start: 03/23/20 12:42 Freq: NEEDED Status: Active Protocol: Document 03/23/20 14:45 AB (Rec: 03/23/20 15:34 AB [id number]) Orientation Orientation/Cognition Level of Alertness Alert Orientation Name,Place,Situation Language Function Ability Hard of Hearing Safety Awareness Decreased Safety Awareness Gross Range of Motion Lower Extremity ROM Assessment Within Functional Limits Strength Lower Extremity Strength Assessment Within Functional Limits Coordination Assessment Gross Coordination Gross Coordination WNL Sensation Assessment Sensation Gross Sensation WNL Muscle Tone Muscle Tone WNL Yes M6 PT-IP Treatment Start: 03/23/20 12:42 Freq: NEEDED Status: Active Protocol: Document 03/24/20 10:26 AB (Rec: 03/24/20 11:42 AB [id number]) Physical Therapy Treatment Education Education Provided Safety M7 PT-IP Assessment and Plan Start: 03/23/20 12:42 Freq: NEEDED Status: Active Protocol: Document 03/24/20 10:26 AB (Rec: 03/24/20 11:42 AB [id number]) PT Summary Assessment and Plan Potential Rehabilitation Potential Good Summary Impairments Balance,Bed Mobility,Transfers ,Gait,Activity Tolerance Progress Towards Goals Progressing Toward Goals Assessment Summary pt requiring SBA with mobility using SPC. pt plans to go home and spouse will be able to assist pt at home. pt may go home when medically stable Goals Bed Mobility Goal Independent Transfer Goal Independent Gait Goal Independent Gait Distance 150 Other Goals up/down 2 steps using SPC CGA Days to Meet Goals 5 Frequency of Treatment Frequency Of Treatment Once a Day Treatment Plan Physical Therapy Treatment Plan Bed Mobility Training,Transfer Training,Gait Training, Therapeutic Exercise,Balance Retraining,Post Op Education, Discharge Planning,Hot or Cold Pack,Neuromuscular Re-ed, Coordination Retraining,Manual Therapy Recommendations To Nursing Amount of Assist Needed 1 Person Assist Discharge Recommendations PT Discharge Recommendations Home with Assistance Transportation Needs at Discharge Private Vehicle
[2020-03-24 13:00] VITALS: BP 141/76; PULSE 86; RESP 16; TEMP 36.7; O2SAT 98
--- NOTE | 2020-03-24 13:33 | PC.NURSE ---
Pt is dressed and ready for discharge home with Spouse. HL removed. Went over d/c instructions with Pt and Spouse-discussed d/c meds, time of last dose, reviewed stroke education, reminded Pt to follow up with Dr. Coulter next week. Pt to continue with o/p iron infusions. Pt and Spouse deny further questions. Pt out via w/c by [employer] to POV with Spouse and all belongings.
== END 2020-03-24 13:35 | disposition home or self-care (01) ==
LOC: ED 19:45 → AC 19:56 → ICU 20:01 → AC 03-23 13:56
PROVIDERS: Family Medicine; Admitting Provider Student in an Organized Health Care Education/Training Program; Emergency Provider Emergency Medicine; PCP Student in an Organized Health Care Education/Training Program; Visit Provider Student in an Organized Health Care Education/Training Program
DX: D50.9 Iron deficiency anemia, unspecified (principal); R06.02 Shortness of breath; Z79.01 Long term (current) use of anticoagulants; Z86.718 Personal history of other venous thrombosis and embolism; K21.9 Gastro-esophageal reflux disease without esophagitis; F41.9 Anxiety disorder, unspecified; F32.9 Major depressive disorder, single episode, unspecified; Z11.59 Encounter for screening for other viral diseases; K44.9 Diaphragmatic hernia without obstruction or gangrene; R00.0 Tachycardia, unspecified; D68.51 Activated protein C resistance
CPT/HCPCS: 36415; 36430; 71045; 80053; 82550; 83690; 83735; 83880; 84145; 84484; 85025; 85610; 85730; 86850; 86900; 86901; 87635; 87797; 93005; 93010; 94762; 96361; 96374; 96375; 96376; 97116; 97161; 99214; 99284; G0378; P9016; C9113; J1756; J1940

== ENCOUNTER 2020-06-11 12:33 | Day surgery (SDC) | payer MEDICARE, OTHER, SELFPAY ==
[2020-03-22 20:12] VITALS: BMI 34.8
--- NOTE | 2020-06-11 | PATH_ITS ---
[facility] Accession Number: [id number] . 01 Material submitted: . PART A: gastrointestinal site - GASTRIC POLYP PART B: sigmoid colon - SIGMOID COLON AT 15 CM . 01 Diagnosis: A. Gastric Polyp, Biopsy: Fundic gland polyp. No evidence of Helicobacter organisms on H/E stain. Negative for intestinal metaplasia. Negative for dysplasia and malignancy. . B. Sigmoid Colon at 15 cm, Biopsy: Invasive adenocarcinoma, moderately differentiated. Lymphovascular invasion not identified. . IMMUNOHISTOCHEMISTRY TESTING FOR MISMATCH REPAIR PROTEINS: . MLH1: Intact nuclear expression. MSH2: Intact nuclear expression. MSH6: Intact nuclear expression. PMS2: Intact nuclear expression. Background nonneoplastic tissue/internal control with intact nuclear expression. . INTERPRETATION: No loss of nuclear expression of MMR proteins: low probability of microsatellite instability-high (MSI-H)* . * There are exceptions to the above IHC interpretations. These results should not be considered in isolation, and clinical correlation with genetic counseling is recommended to assess the need for germline testing. . * This test was developed and its performance characteristics determined by [facility]. It has not been cleared or approved by the U.S. Food and Drug Administration. The FDA has determined that such clearance or approval is not necessary. This test is used for clinical purposes. It should not be regarded as investigational or for research. [facility] 06/18/2020 1302 Local . 01 Comment: As part of routine quality technician, Dr. Caballero has reviewewd this case and agrees with the diagnosis of invasive adenocarcinoma. The finding of adenocarcinoma was reported to Dr. Coulter via [facility] by Dr. Marti on 06/16/2020. . 01 Electronically signed: . Farooq Marti MD, PhD, Pathologist NPI- [id number] . 01 Gross description: . Part A: GASTRIC POLYP: Received in formalin are 2 fragment(s) of campbell, soft tissue measuring 0.2 x 0.2 x 0.2 cm to 0.4 x 0.2 x 0.2 cm submitted entirely in 1 cassette(s) Part B: SIGMOID COLON AT 15 CM: Received in formalin are 3 fragment(s) of campbell, soft tissue measuring 0.2 x 0.2 x 0.2 cm to 0.3 x 0.2 x 0.2 cm submitted entirely in 1 cassette(s) /MIKEL 06/14/2020 1909 Local . 01 Pathologist provided ICD-10: K31.7, C18.7 . 01 CPT . 435035, [id number], [id number], [id number] Performed at: [address] [facility] [id number] MD Chivo Julien MD Phone: [phone]
--- NOTE | 2020-06-11 12:20 | PM.HP.1 ---
History of Present Illness History of Present Illness Date Patient Seen: 06/11/20 Chief complaint: SDC Narrative: 79 year old female comes in today for consideration of a diagnostic EGD and colonoscopy. Was admitted in February for iron deficiency anemia, microcytic/microchromic. Received 3 units of packed red blood cells as well as 1 IV iron transfusion prior to discharge. Admission H/H 5.1/18.4, discharge H/H 8.1/26.7. After iron transfusions, CBC on 05/03/2020 revealed a hemoglobin of 11.3, hematocrit 37.3. Advised to get outpatient EGD/colonoscopy to assess possible bleeding sites. Eliquis was discontinued during inpatient stay. Patient was on Eliquis secondary to history of DVT x3. She does have a history of hiatal hernia and GERD with previous GI bleed, controlled on omeprazole 20 mg p.o. q.day. There have been no lower GI symptoms suggesting disease such as change in bowel habits, bleeding, or abdominal pain. She does have external hemorrhoids. There's been no family history of colon cancer or colon polyps. Overall health issues have been stable, including no major cardiac events for at least 6 weeks. Past medical history: DVT x3 status post fractures External hemorrhoids Depression GERD Anemia, iron deficiency Anxiety History of GI bleed Rectocele Hiatal hernia Factor V Leiden deficiency Osteoporosis Past surgical history: Cholecystectomy Colonoscopy EGD Family history: Alcohol, substance abuse, asthma. No colon polyps or colon cancer. Social history: Recently remarried after her first . Spouse: Rob. PCP: Dr. Coulter Patient History Medical History (Updated 03/22/20 @ 19:54 by Marquita Levi RN) Bilateral arm fractures Factor V Leiden GERD (gastroesophageal reflux disease) Hiatal hernia Migraine Rectocele Recurrent deep vein thrombosis (DVT) Surgical History History of cholecystectomy History of colonoscopy History of esophagogastroduodenoscopy (EGD) Family & Social History Social History: household members spouse Tobacco & Substance use: Smoking Status Unknown if ever smoked alcohol intake never Substance Use Type does not use Meds Home Medications and Allergies Home Medications Medication Instructions Recorded Confirmed Type citalopram 20 mg PO DAILY 03/22/20 05/03/20 History omeprazole 20 mg PO DAILY 03/22/20 05/03/20 History acetaminophen [Tylenol Extra 500 mg PO QID PRN 05/03/20 06/11/20 History Strength] Allergies Allergy/AdvReac Type Severity Reaction Status Date / Time codeine [CODEINE] Allergy Unknown Verified 06/11/20 14:02 Penicillins [PENICILLINS] Allergy Unknown Verified 06/11/20 14:02 Review of Systems Review of Systems ROS: Yes All systems reviewed with the patient and are negative except as otherwise documented Exam Narrative Exam Narrative: GENERAL: Alert and oriented, appearing stated age and in no acute distress. HEENT: Head normocephalic/atraumatic. LUNGS: Clear to ausculation bilaterally, no wheezes, rhonchi or rales. CV: Normal S1 and S2 with regular rate and rhythm, no audible murmurs, rubs or gallops. ABDOMEN: Soft, non-tender, non-distended, no organomegaly. Positive bowel sounds. EXTREMITIES: No clubbing, cyanosis, or edema. NEURO: Cranial nerves II through XII grossly intact, no focal deficits. PSYCH: Alert and oriented x 3. SKIN: No concerning lesions. Assessment & Plan Assessment & Plan narrative: 1. Anemia, iron deficiency 2. History of GI bleed 3. History of GERD 4. History of hiatal hernia 5. History of external hemorrhoids 6. Screening for colon cancer Plan for EGD/colonoscopy. The nature and character of the procedure as well as anticipated results were discussed. The possibility of not completing the procedure was also discussed. Possible complications including aspiration pneumonia, bleeding, perforation and reaction to medications either for sedation or preparation and missed lesions were discussed. Questions were answered and proceeding to the colonoscopy was elected. Informed consent signed. I sincerely appreciate the referral allowing me to participate in this patient's care. Please contact me with any questions or concerns.
--- NOTE | 2020-06-11 12:35 | PM.OP.ENDO ---
Operative Date/Time/Diagnoses Date of procedure: 06/11/20 Procedure Notes SCOAP/Timeout: 15:10 Procedure in detail: ENDOSCOPIST: Verenice Coulter MD Anesthesiologists: Dr. Marinelli Sedation start time: 15:11 Sedation end time: 15:51 PROCEDURE: Colonoscopy with biopsy INDICATIONS: 1. Iron deficiency anemia 2. History of GI bleed 3. External hemorrhoids 3. Screening for colon cancer MEDICATION: Levsin 0.125 mg sublingual, incremental doses of propofol until appropriate level of sedation achieved. ASA CLASS: 2 CECAL WITHDRAWAL TIME: 16 minutes COMPLICATIONS: None. EXTENT OF PROCEDURE: Cecum. QUALITY OF PREP: Good with portions of liquid stool. PROCEDURE: Prior to insertion of the colonoscope, a digital rectal examination was accomplished with circumferential palpation of the distal rectal mucosa without significant findings being noted. The high-definition colonoscope was passed into the rectum in the usual fashion and advanced over to the cecum without difficulty. The ileocecal valve, appendiceal stoma, and medial wall all could be inspected and no abnormalities were seen. ASCENDING COLON: As the colonoscope was withdrawn, care was taken to expose and inspect the haustral folds and minor diverticulosis was seen. HEPATIC FLEXURE: Minor diverticulosis otherwise, normal, no polyps or other abnormalities. TRANSVERSE COLON: Minor diverticulosis otherwise, normal, no polyps or other abnormalities. DESCENDING COLON: Moderate diverticulosis otherwise, normal, no polyps or other abnormalities. SIGMOID COLON: A 2-3 cm friable polyp seen at approximately 15 cm, occluding approximately 50% of the lumen, targeted biopsy taken x 3. Spot placed on the lateral and medial oconnell approximately 2 cm distal to the lesion. Otherwise, moderate diverticulosis. RECTUM: Normal. J maneuver was produced. There was no significant perianal disease. The J maneuver was broken. The remainder of the rectum was inspected and there was external hemorrhoid disease. The scope was withdrawn. IMPRESSION: 1. Sigmoid polyp x1, 2-3 cm, friable, targeted biopsy taken x 3. 2. Diverticulosis, pancolonic 3. External hemorrhoid disease PLAN: 1. Follow-up in clinic status post pathology results. The possibility of a missed lesion including a malignancy has been discussed with the patient previously. Potential alarm symptoms have been discussed and should be reported immediately.
[2020-06-11 13:03] LABS: COVID19 -Nasal RAPID Negative (Negative)
[2020-06-11 13:50] VITALS: BP 152/92; PULSE 102; RESP 12; TEMP 36.5; O2SAT 94; BMI 31.2
[2020-06-11] MEDS: HYOSCYAMINE 0.125 MG TABLET PO (14:00)
[2020-06-11] MEDS: LACTATED RINGERS 1,000 ML 200 ML IV (14:00)
--- NOTE | 2020-06-11 14:42 | P.OP.ENDO_ITS ---
Operative Date/Time/Diagnoses Date of procedure: 06/11/20 Procedure Notes SCOAP/Timeout: 2:45 pm Procedure in detail: ENDOSCOPIST: Verenice Coulter MD Sedation RN: Sofia Salter RN Sedation start time: 2:46 p.m. Sedation end time: 3:01 p.m. PROCEDURE: EGD with biopsy INDICATIONS: 1. Iron deficiency anemia 2. History of GI bleed 3. History of GERD 4. History of hiatal hernia 5. External hemorrhoids MEDICATION: 4 mg of Versed and 100 mcg fentanyl until an appropriate level of sedation was achieved. 0.2 mg of romazicon and 0.2 mg of narcan for reversal of sedation after patient had desaturations into the 70s. ASA Ratin DURATION OF PROCEDURE: 15 minutes. COMPLICATIONS: None. LIMITATIONS: None EXTENT OF PROCEDURE: Third portion of the Duodenum. PROCEDURE: The high-definition gastroduodenoscope was introduced into the posterior oropharynx under direct vision after Hurricaine spray, noted IV sedation, and proper informed consent. The esophagus was identified and intubated under direct visualization. The scope was quickly passed through the esophagus and into the fundus of the stomach. A clear fundal pool was aspirated. The scope was then advanced to the antrum and the pylorus was identified. The scope was passed through the pylorus into the second and third portions of the duodenum. No abnormalities were noted in the duodenum, duodenal bulb or pyloric channel. The antrum was clear. J maneuver was produced. A small gastric polyp was noted in the proximal body and was removed with biopsy forceps. Otherwise, no abnormalities were noted of the proximal body, fundus or cardia. A small hiatal hernia was seen. Scope was broken out of the J maneuver and the remainder of the stomach was carefully inspected upon withdrawal and was normal. The stomach was carefully deflated of all air on withdrawal. The distal es ophagus was carefully inspected and Z-line was slightly irregular. The remainder of the esophagus was normal upon withdrawal. The larynx and vocal cords appeared to be unremarkable. At the end of the procedure, patient started to desaturate into the 70s and she was quickly extubated, placed supine, and bagged for approximately 5 minutes. She did have improvement in her O2 sats into the 88-90% range but was not able to maintain this saturation, romazicon and Narcan were then given with good effect. Patient was allowed to recover and her vital signs returned to normal with excellent oxygen saturations. IMPRESSION: 1. No evidence of active bleeding or peptic ulcer disease. 2. Small hiatal hernia. 3. Irregular Z-line PLAN: 1. Follow-up in primary care clinic, no endoscopic evidence of upper GI bleeding or peptic ulcer disease.
[2020-06-11] MEDS: LIDOCAINE JELLY 2% 5 ML 1 APPLIC TOP (14:45)
[2020-06-11] MEDS: LIDOCAINE 4% SOLN 50 ML 20 ML TOP (14:46)
[2020-06-11] MEDS: fentaNYL 250 MCG/5 ML INJ IV (14:50)
[2020-06-11] MEDS: MIDAZOLAM 5 MG/5 ML VIAL IV (14:50)
[2020-06-11] MEDS: FLUMAZENIL 0.5 MG/5 ML MDV 0.2 MG IV (15:01)
[2020-06-11] MEDS: NALOXONE 0.4 MG/ML VIAL 0.2 MG IV (15:03)
--- NOTE | 2020-06-11 15:22 | SUR.OPER ---
Colonoscopy starting now with anesthesia in room. During EGD pt maintained BP and HR, sats decreased to 74%. RNx2 used ambu bag, provided respirations, chest rise and fall. Bagged from 1457- 1502. 0.2mg IV Narcan and 0.2mg IV Romazicon administered. Charge nurse called in endo for assistance. Pt recovered, A&Ox3, GCS 15, Sats returned to 99% with NRB at 15L. HR 88 sinus, BP 136/87. Anesthesia to room to continue second procedure. Time out conducted prior to second procedure. Pt verbalized understanding of anesthesia in the room adn was called to verbally consent to anesthesia as well.
[2020-06-11 15:57] VITALS: BP 136/81; PULSE 85; RESP 18; TEMP 36.6; O2SAT 83
[2020-06-11 16:02] VITALS: BP 136/81; PULSE 84; RESP 17; O2SAT 98
[2020-06-11 16:07] VITALS: BP 133/79; PULSE 84; RESP 19; O2SAT 98
[2020-06-11 16:12] VITALS: BP 133/79; PULSE 92; RESP 18; O2SAT 96
[2020-06-11 16:46] VITALS: BP 136/87; PULSE 80; RESP 16; TEMP 36.2; O2SAT 94
--- NOTE | 2020-06-11 16:49 | SUR.PHASEII ---
Patient resting quietly with no complaints. VSS. Denies any pain, nausea or SOB. All discharge instructions reviewed with patient. V/U.
== END 2020-06-11 17:27 | disposition home or self-care (01) ==
PROVIDERS: PCP Student in an Organized Health Care Education/Training Program; Referring Provider Student in an Organized Health Care Education/Training Program; Visit Provider Student in an Organized Health Care Education/Training Program
PROC: 0DJD8ZZ Inspection of Lower Intestinal Tract, Via Natural or Artificial Opening Endoscopic (ICD-10-PCS; CPT 45378; principal; 2020-06-11 14:30)
PROC: 0DJ08ZZ Inspection of Upper Intestinal Tract, Via Natural or Artificial Opening Endoscopic (ICD-10-PCS; CPT 43235; 2020-06-11 14:30)
DX: C18.7 Malignant neoplasm of sigmoid colon (principal); D50.9 Iron deficiency anemia, unspecified; K64.4 Residual hemorrhoidal skin tags; K57.30 Diverticulosis of large intestine without perforation or abscess without bleeding; K44.9 Diaphragmatic hernia without obstruction or gangrene; K21.9 Gastro-esophageal reflux disease without esophagitis; Z79.01 Long term (current) use of anticoagulants; Z86.718 Personal history of other venous thrombosis and embolism; Z20.822 Contact with and (suspected) exposure to COVID-19; K31.7 Polyp of stomach and duodenum
CPT/HCPCS: 45380; 43239; 87635; J2250; J2310; J3010

== ENCOUNTER → 2020-07-06 10:48 | Outpatient (CLI) | payer MEDICARE, OTHER, SELFPAY ==
[2020-03-22 20:12] VITALS: BMI 34.8
--- NOTE | 2020-07-06 | DI.CT.S_ITS ---
PROCEDURE: CT CHEST ABD PEL W CON INDICATIONS: Malignant neoplasm of sigmoid colon TECHNIQUE: After the administration of oral and intravenous contrast, 5 mm thick sections acquired from the lung apices to the symphysis. 5 mm coronal and sagittal reformats were performed, with additional 7 mm coronal MIP reformats through the lungs. For radiation dose reduction, the following was used: automated exposure control, adjustment of mA and/or kV according to patient size. COMPARISON: [facility], CT, CT ABDOMEN PELVIS W CON, 03/05/2020, 11:26. FINDINGS: Image quality: Excellent. CHEST: Lungs and pleura: No acute airspace opacities. Calcified granuloma within the right upper lobe anterolaterally. Mild right posterior lung base scarring is present, as before. Compressive atelectasis within the right lower lobe adjacent to the hiatal hernia is present. There is a subpleural 4 mm non inter nodule within the left upper lobe posterolaterally. No pleural effusions or pneumothorax. Central and peripheral airways appear patent and normal in caliber. Mediastinum: Heart size is normal. No pericardial effusion. No mediastinal or hilar adenopathy by size criteria. Thoracic aorta and central pulmonary arteries are normal in size. Esophagus is normal in caliber. No change in large hiatal hernia, which is in a configuration which is at risk for gastric volvulus, as before. Chest wall: No axillary or supraclavicular adenopathy by size criteria. Thyroid gland is within normal limits . ABDOMEN: Solid organs: Liver is normal in size and enhancement. Gallbladder is surgically absent . Biliary system is non dilated. Pancreas enhances normally. Pancreas is herniated into the hiatal hernia, as before. Spleen is normal in size and enhancement. No right adrenal nodules. There is a fat containing left adrenal nodule, measuring 12 mm diameter. Kidneys demonstrate normal size and enhancement, without hydronephrosis. Peritoneum and bowel: Hiatal hernia is present, as described above. Small bowel is within normal limits. Appendix is prominent in size but demonstrates no evidence of surrounding fat stranding to indicate acute inflammation. There is moderate distension of the descending and sigmoid colon. There is eccentric thickening of the posterior and right posterior aspect of the rectosigmoid junction, measuring roughly 25 mm in thickness, by 40 mm transverse. Nodes and vessels: No retroperitoneal or mesenteric adenopathy by size criteria. Aorta and inferior vena cava are normal in size. Miscellaneous: No ventral hernias. PELVIS: Genitourinary: Bladder wall thickness is normal. Miscellaneous: No inguinal hernias or adenopathy. Bones: No suspicious bony lesions. No vertebral body compression fractures. IMPRESSION: 1. Partially occlusive rectosigmoid junction mass, associated with moderate distension of the descending colon. 2. No change in large hiatal hernia which is at risk for gastric volvulus. 3. Small indeterminate left upper lobe pulmonary nodule. Recommend attention to this region on follow-up imaging studies. 4. Left adrenal adenomyelolipoma. Dictated by: Dax Medley M.D. on 07/06/2020 at 15:15 Approved by: Dax Medley M.D. on 07/06/2020 at 15:21
== END ==
PROVIDERS: PCP Student in an Organized Health Care Education/Training Program; Referring Provider Surgery; Visit Provider Surgery
DX: C18.7 Malignant neoplasm of sigmoid colon (principal); K44.9 Diaphragmatic hernia without obstruction or gangrene; R91.1 Solitary pulmonary nodule; D35.02 Benign neoplasm of left adrenal gland
CPT/HCPCS: 71260; 74177

== ENCOUNTER 2020-08-16 17:50 | Emergency (ER) | payer MEDICARE, OTHER, SELFPAY ==
[2020-03-22 20:12] VITALS: BMI 34.8
[2020-08-16] VITALS (22 sets, daily range): BP systolic 115–141; BP diastolic 60–76; PULSE 81–112; RESP 16–43; TEMP 36.3; O2SAT 88–97
--- NOTE | 2020-08-16 18:10 | DI.RAD.S_ITS ---
PROCEDURE: XR CHEST 1V INDICATIONS: dyspnea TECHNIQUE: One view of the chest was acquired. COMPARISON: [facility], CT, CT CHEST ABD PEL W CON, 07/06/2020, 11:47. [facility], CT, CT ABDOMEN PELVIS W CON, 03/05/2020, 11:26. [facility], CR, XR CHEST 1V, 03/22/2020, 17:54. FINDINGS: Surgical changes and devices: None. Lungs and pleura: Increased interstitial markings throughout both lungs similar to comparison study. No focal consolidation. Tiny left pleural effusion suspected. No findings of pneumothorax. Mediastinum: Moderate-sized hiatal hernia again noted. Bones and chest wall: No suspicious bony lesions. Overlying soft tissues appear unremarkable. IMPRESSION: Bilateral increased interstitial markings with tiny left pleural effusion suspected. Findings presumably represent cardiogenic pulmonary edema, although correlation with BNP is requested as acute viral infection could cause a similar appearance. Moderate-sized hiatal hernia. Dictated by: Amish Boyce M.D. on 08/16/2020 at 18:38 Approved by: Amish Boyce M.D. on 08/16/2020 at 18:39
[2020-08-16 18:35] LABS: Add Manual Diff / Slide Review NO; Basophils Absolute Auto 0 /uL (0-100); Basophils Percent Auto 0.6 % (0-2); Eosinophils Absolute Auto 300 /uL (0-450); Eosinophils Percent Auto 3.3 % (2-4); Hematocrit 40.2 % (36-46); Hemoglobin 13.1 g/dL (12.0-16.0); Lymphocytes Absolute Auto 900 /uL (1100-4500); Lymphocytes Percent Auto 10.9 % (25-40); Mean Corpuscular HGB Conc 32.6 % (30-36); Mean Corpuscular Hemoglobin 27.1 PG (26-34); Mean Corpuscular Volume 83.1 fL (80-100); Monocytes Absolute Auto 700 /uL (0-900); Monocytes Percent Auto 8.5 % (3-14); Neutrophils Absolute Auto 6300 /uL (1500-7000); Neutrophils Percent Auto 76.7 % (50-75); Platelet Count 235 X10^3/uL (150-400); Red Blood Cell Count 4.83 X10^6/uL (4.0-5.2); Red Cell Distribution Width 16.6 % (11.6-14.8); White Blood Cell Count 8.2 X10^3/uL (4.5-11.0)
--- NOTE | 2020-08-16 18:58 | ED.SOB ---
HPI - SOB/Dyspnea General Chief Complaint: Shortness of Breath/Dyspnea Stated Complaint: SOB, 1 Month Post Surgery Time Seen by Provider: 08/16/20 18:09 Source: patient Mode of arrival: Ambulatory Limitations: no limitations History of Present Illness HPI Narrative: 80-year-old female nonsmoker with a history of prior PE, DVT, GERD, anemia and colon cancer presents with family in the chief complaint of a relatively sudden onset shortness of breath this afternoon. She had been in her normal state of health until she became significantly short of breath, particularly with any exertion. She has been having some pain in her right calf and was recently taken off blood thinners in preparation for a bowel surgery. She does have a history of prior DVT and pulmonary embolism which occurred after surgical intervention. She denies any nausea or vomiting. She is dizzy with exertion. She denies any fever or chills normal runny nose or sore throat. Related Data Home Medications Medication Instructions Recorded Confirmed citalopram 20 mg PO DAILY 03/22/20 06/14/20 omeprazole 20 mg PO DAILY 03/22/20 06/14/20 citalopram 20 mg tablet 20 mg PO DAILY 03/31/20 03/31/20 omeprazole 20 mg capsule,delayed 20 mg PO DAILY 03/31/20 03/31/20 release acetaminophen [Tylenol Extra 500 mg PO QID PRN 05/03/20 06/14/20 Strength] Allergies Allergy/AdvReac Type Severity Reaction Status Date / Time codeine [CODEINE] Allergy Unknown Verified 06/21/20 08:17 Penicillins [PENICILLINS] Allergy Unknown Verified 06/21/20 08:17 potassium Allergy Unknown Verified 06/21/20 08:17 Review of Systems Constitutional Constitutional: Denies chills, Reports fatigue, Denies fever(s), Denies frequent falls, Denies lethargy and Reports weakness Eyes Eyes: Denies change in vision, Denies eye discharge, Denies irritation and Denies loss of vision ENT Ears, Nose, Mouth, and Throat: Denies change in voice, Denies dizziness, Denies neck pain, Denies sore throat and Denies throat swelling Cardiovascular Cardiovascular: Denies chest pain, Denies irregular heart rhythm, Denies lightheadedness, Denies palpitations, Reports dyspnea, Reports dyspnea on exertion and Denies orthopnea Respiratory Respiratory: Reports cough, Reports dyspnea, Reports dyspnea on exertion and Denies wheezing Gastrointestinal Gastrointestinal: Denies abdominal pain, Denies change in bowel habits, Denies diarrhea, Denies nausea and Denies vomiting Musculoskeletal Musculoskeletal: Denies neck pain and Denies numbness Integumentary/Breasts Skin/Breast: Denies pruritus, Denies erythema, Denies rash and Denies wounds Neurologic Neurologic: Denies behavioral changes, Denies confusion, Denies dizziness, Denies frequent falls, Denies loss of vision, Denies numbness and Reports weakness Psychiatric Psychiatric: Denies anxiety, Denies behavioral changes, Denies confusion, Denies depression, Denies homicidal ideation and Denies suicidal ideation Endocrine Endocrine: Reports fatigue, Denies flushing and Denies palpitations Hematologic/Lymphatic Hematologic/Lymphatic: Denies easy bruising Allergic/Immunologic Allergic/Immunologic: Denies urticaria, Denies throat swelling and Denies wheezing Patient History Medical History Anemia Bilateral arm fractures DVT (deep venous thrombosis) Factor 5 Leiden mutation, heterozygous Factor V Leiden GERD (gastroesophageal reflux disease) Hiatal hernia Migraine Rectocele Recurrent deep vein thrombosis (DVT) Surgical History History of cholecystectomy History of colonoscopy History of esophagogastroduodenoscopy (EGD) Hx of cholecystectomy Family History Father Cancer Brother Cancer Heart disease Social History marital status: household members: spouse occupational status: previously employed Smoking Status: Unknown if ever smoked alcohol intake: never substance use type: does not use Smoking Status: Unknown if ever smoked Alcohol type: wine Substance Use Type: does not use Exam Narrative Exam Narrative: GENERAL: [80] year old patient appears stated age. Well-nourished, well-developed patient, in mild distress. Very hard of hearing HEAD: Atraumatic. Normocephalic. EYES: Pupils equal round and reactive. Extraocular motions intact. No scleral icterus. No injection or drainage. ENT: Nose without bleeding, purulent drainage. Throat without erythema, tonsillar hypertrophy or exudate. Airway patent. NECK: Trachea midline. Non tender CARDIOVASCULAR: Tachycardic but regular rhythm without murmurs, gallops, or rubs. RESPIRATORY: Clear to auscultation. Breath sounds equal bilaterally. No wheezes, rales, or rhonchi. GASTROINTESTINAL: Abdomen soft, non-tender, nondistended. EXTREMITIES: No edema or joint tenderness. BACK: Nontender without deformity or crepitance. No flank tenderness. NEURO: AOx3. SKIN: No rash or erythema of visible areas Initial Vital Signs Initial Vital Signs: Vital Signs Temperature 97.4 F L 08/16/20 17:54 Pulse Rate 112 H 08/16/20 17:54 Respiratory Rate 22 08/16/20 17:54 Blood Pressure 132/76 08/16/20 17:54 Pulse Oximetry 93 08/16/20 17:54 Course Course Course Narrative: Simplified PESI (Pulmonary Embolism Severity Index) from [facility] on 08/16/2020 All calculations should be rechecked by clinician prior to use RESULT SUMMARY: High risk 8.9% risk of in the ?High? risk group (>0 points) INPUTS: Age, years ?> 1 = >80 History of cancer ?> 1 = Yes History of chronic cardiopulmonary disease ?> 0 = No Heart rate, bpm ?> 1 = ?110 Systolic BP, mmHg ?> 0 = ?100 O? saturation ?> 1 = <90% Kole Score for Pulmonary Embolism Complications from [facility] on 08/17/2020 All calculations should be rechecked by clinician prior to use RESULT SUMMARY: 3 points Kole Score Stage II Intermediate risk 18 % PE-related complications ( from PE, hemodynamic collapse, or recurrent nonfatal PE) at 30 days 6.8% PE-related mortality at 30 days INPUTS: Systolic BP ?> 0 = >100 mm Hg Elevated cardiac troponin ?> 2 = Yes RV dysfunction ?> 0 = No Heart rate, beats/min ?> 1 = ?110 Orders Ordered: ED Orders 08/16/20 20:37 EKG-12 Lead Stat 08/16/20 21:39 Arterial Blood Gas Stat Discontinued Medications Enoxaparin Sodium (Enoxaparin 40 Mg/0.4 Ml Syringe) 80 mg 1 mg/kg (80 mg) SUBCUT NOW ONE Stop: 08/16/20 19:23 Last Admin: 08/16/20 20:01 Dose: Not Given Documented by: ANISA Enoxaparin Sodium (Enoxaparin 80 Mg/0.8 Ml Syringe) 80 mg 1 mg/kg (80 mg) SUBCUT NOW ONE Stop: 08/16/20 19:46 Last Admin: 08/16/20 20:01 Dose: Not Given Documented by: ANISA Heparin Sodium (Porcine) (Heparin 5,000 Unit/Ml Vial) 6,500 unit 80 unit/kg (6500 unit) IV NOW ONE Stop: 08/16/20 20:00 Last Admin: 08/16/20 20:07 Dose: 6,500 unit Documented by: MELANI Sodium Chloride (Normal Saline 0.9%) 500 mls @ 1,000 mls/hr IV BOLUS ONE Stop: 08/16/20 19:51 Last Infusion: 08/16/20 22:43 Dose: 0 mls/hr Documented by: Admin: 08/16/20 20:10 Dose: 250 mls/hr Documented by: MELANI Heparin Sodium/Dextrose (Heparin Drip) 25,000 unit in 500 mls @ 29.393 mls/hr IV CONT LUCY; Protocol Last Titration: 08/16/20 22:52 Dose: 0 units/kg/hr, 0 mls/hr Documented by: Admin: 08/16/20 20:07 Dose: 18 units/kg/hr, 29.393 mls/hr Documented by: MELANI Lorazepam (Lorazepam 2 Mg/Ml Inj) 0.5 mg IV NOW ONE Stop: 08/16/20 20:26 Last Admin: 08/16/20 20:38 Dose: 0.5 mg Documented by: JAYLAN Morphine Sulfate (Morphine 2 Mg/Ml Inj) 2 mg IV NOW ONE Stop: 08/16/20 20:38 Last Admin: 08/16/20 20:43 Dose: 2 mg Documented by: JAYLAN Morphine Sulfate (Morphine 2 Mg/Ml Inj) 2 mg IV NOW ONE Stop: 08/16/20 21:39 Last Admin: 08/16/20 21:42 Dose: 2 mg Documented by: ANISA Morphine Sulfate (Morphine 2 Mg/Ml Inj) 2 mg IV NOW ONE Stop: 08/16/20 22:04 Last Admin: 08/16/20 22:07 Dose: 2 mg Documented by: ANISA Reevaluation(s) Reevaluation #1: Called to see patient upon return from CT scan. The minimal effort required to stand and pivot from the CT table to the cart caused her to become profoundly dyspneic, tachycardic, tachypneic with hypoxemia noted in the 70s. Respiratory therapy was consulted, for repeat evaluation, increased her oxygen by nasal cannula to 5 L and after 5-10 minutes she was able to gradually recover and returned to her baseline. Consultations Consultation #1: call to [facility] given size of PEs, B/L nature and severe presentation, I was able to discuss this case with their rodent control worker who states she has not an ICU candidate and does not meet the criteria for intervention. [facility] will be putting us on a a waiting list as they have no appropriate beds for patient transfer Time: 19:57 Consultation #2: call to [facility]. Hospitalist happy to accept in transfer Vital Signs Vital signs: Vital Signs - 8 hr 08/16/20 21:30 08/16/20 21:45 08/16/20 22:00 Pulse Rate 90 83 81 Respiratory Rate 16 19 19 Blood Pressure 120/63 129/64 120/68 Pulse Oximetry 94 95 95 08/16/20 22:15 08/16/20 22:30 Pulse Rate 85 90 Respiratory Rate 18 18 Blood Pressure 123/69 128/60 Pulse Oximetry 92 92 MDM - SOB/Dyspnea Lab Data Result diagrams: 08/16/20 18:16 08/16/20 18:16 Labs: Lab Results 08/16/20 08/16/20 08/16/20 Range/Units 18:16 18:16 18:16 WBC 8.2 (4.5-11.0) X10^3/uL RBC 4.83 (4.0-5.2) X10^6/uL Hgb 13.1 (12.0-16.0) g/dL Hct 40.2 (36-46) % MCV 83.1 (80-100) fL MCH 27.1 (26-34) PG MCHC 32.6 (30-36) % RDW 16.6 H (11.6-14.8) % Plt Count 235 (150-400) X10^3/uL Neut % (Auto) 76.7 H (50-75) % Lymph % (Auto) 10.9 L (25-40) % [place] % (Auto) 8.5 (3-14) % Eos % (Auto) 3.3 (2-4) % Baso % (Auto) 0.6 (0-2) % Neut # (Auto) 6300 (4627-5489) /uL Lymph # (Auto) 900 L (4536-5494) /uL [place] # (Auto) 700 (0-900) /uL Eos # (Auto) 300 (0-450) /uL Baso # (Auto) 0 (0-100) /uL ABG pH (7.35-7.45) ABG pCO2 (35-45) mmHg ABG pO2 (80-100) mmHg ABG HCO3 (22-26) mmol/L ABG Total CO2 (21-31) mmol/L ABG O2 Saturation (95-100) % ABG Base Excess (-2-2) mmol/L FiO2 Sodium 137 Cancelled (137-145) mmol/L Potassium 4.5 Cancelled (3.4-5.1) mmol/L Chloride 105 Cancelled (98-107) mmol/L Carbon Dioxide 24 Cancelled (22-32) mmol/L BUN 14 Cancelled (7-17) mg/dL Creatinine 0.61 Cancelled (0.52-1.04) mg/dL Estimated GFR > 60.0 Cancelled (>60) mL/min BUN/Creatinine Ratio 23.0 H Cancelled (6-22) Glucose 149 H Cancelled (80-110) mg/dL Calcium 8.8 Cancelled (8.4-10.2) mg/dL Magnesium 2.2 (1.6-2.3) mg/dL Total Bilirubin 0.4 Cancelled (0.2-1.3) mg/dL AST 40 H Cancelled (14-36) IU/L ALT 18 Cancelled (<35) IU/L Alkaline Phosphatase 107 Cancelled (38-126) U/L Total Creatine Kinase 46 (30-135) U/L CK-MB (CK-2) TNP CK-MB (CK-2) Rel Index TNP Troponin I 0.396 H* (0.01-0.034) ng/mL NT-Pro-B Natriuret Pep 232 (<450) pg/mL Total Protein 7.4 Cancelled (6.3-8.2) g/dL Albumin 3.8 Cancelled (3.5-5.0) g/dL Globulin Cancelled Albumin/Globulin Ratio Cancelled Procalcitonin 0.11 (<0.5) ng/mL SARS-CoV-2 (PCR) (Negative) 08/16/20 08/16/20 Range/Units 18:26 21:39 WBC (4.5-11.0) X10^3/uL RBC (4.0-5.2) X10^6/uL Hgb (12.0-16.0) g/dL Hct (36-46) % MCV (80-100) fL MCH (26-34) PG MCHC (30-36) % RDW (11.6-14.8) % Plt Count (150-400) X10^3/uL Neut % (Auto) (50-75) % Lymph % (Auto) (25-40) % [place] % (Auto) (3-14) % Eos % (Auto) (2-4) % Baso % (Auto) (0-2) % Neut # (Auto) (2287-2660) /uL Lymph # (Auto) (5495-3309) /uL [place] # (Auto) (0-900) /uL Eos # (Auto) (0-450) /uL Baso # (Auto) (0-100) /uL ABG pH 7.39 (7.35-7.45) ABG pCO2 41.6 (35-45) mmHg ABG pO2 88 (80-100) mmHg ABG HCO3 25 (22-26) mmol/L ABG Total CO2 26 (21-31) mmol/L ABG O2 Saturation 97 (95-100) % ABG Base Excess 0.0 (-2-2) mmol/L FiO2 32 Sodium (137-145) mmol/L Potassium (3.4-5.1) mmol/L Chloride (98-107) mmol/L Carbon Dioxide (22-32) mmol/L BUN (7-17) mg/dL Creatinine (0.52-1.04) mg/dL Estimated GFR (>60) mL/min BUN/Creatinine Ratio (6-22) Glucose (80-110) mg/dL Calcium (8.4-10.2) mg/dL Magnesium (1.6-2.3) mg/dL Total Bilirubin (0.2-1.3) mg/dL AST (14-36) IU/L ALT (<35) IU/L Alkaline Phosphatase (38-126) U/L Total Creatine Kinase (30-135) U/L CK-MB (CK-2) CK-MB (CK-2) Rel Index Troponin I (0.01-0.034) ng/mL NT-Pro-B Natriuret Pep (<450) pg/mL Total Protein (6.3-8.2) g/dL Albumin (3.5-5.0) g/dL Globulin Albumin/Globulin Ratio Procalcitonin (<0.5) ng/mL SARS-CoV-2 (PCR) Negative (Negative) Imaging Data Chest x-ray: Radiologist's Impression: 7 Keagan Chavez DO Find Patient Imaging - Cheryl Aquino 80 F 1940 ACTIVITY DATE EXAM STATUS AUTHOR 08/16/20 18:10 Signed Amish Boyce ORDER STATUS ORDER START ORDER DETAIL CT angio chest PE protocol Ordered 08/16/20 18:[address] [id number] ReportSigned Patient: Cheryl Aquino JMR#: [id number]: 1940Acct:[id number]/Sex: 80 / FDate of Service: 08/16/20Loc: EDAccession Number: [id number] Procedure: XR chest 1V Ordering Provider: Keagan Chavez D.O. PROCEDURE: XR CHEST 1V INDICATIONS: dyspnea TECHNIQUE: One view of the chest was acquired. COMPARISON: [facility], CT, CT CHEST ABD PEL W CON, 07/06/2020, 11:47. [facility], CT, CT ABDOMEN PELVIS W CON, 03/05/2020, 11:26. [facility], CR, XR CHEST 1V, 03/22/2020, 17:54. FINDINGS: Surgical changes and devices: None. Lungs and pleura: Increased interstitial markings throughout both lungs similar to comparison study. No focal consolidation. Tiny left pleural effusion suspected. No findings of pneumothorax. Mediastinum: Moderate-sized hiatal hernia again noted. Bones and chest wall: No suspicious bony lesions. Overlying soft tissues appear unremarkable. IMPRESSION: Bilateral increased interstitial markings with tiny left pleural effusion suspected. Findings presumably represent cardiogenic pulmonary edema, although correlation with BNP is requested as acute viral infection could cause a similar appearance. Moderate-sized hiatal hernia. Dictated by: Amish Boyce M.D. on 08/16/2020 at 18:38 Approved by: Amish Boyce M.D. on 08/16/2020 at 18:39 CT scan - chest: Radiologist's Impression: Chart Viewer Diagnostics DATE TYPE STATUS REF RANGE/AUTHOR Hx Today 18:58 Amish Boyce Today 18:10 Amish Boyce 07/06/20 00:00 Dax Medley 06/11/20 12:33 03/22/20 19:55 03/22/20 19:55 03/22/20 17:13 Refugio Mckee 03/05/20 00:00 Eric Jiménez 03/02/20 00:00 Livan BoucherCheryl nelson 80, F0 1940 REG ER, [facility] ED R02 81.647kg Shortness of Breath/Dyspnea Search Chart No Data to Display ONSET Today 19:15 AquinoCheryl Rodriguez 80 F [address] [id number] Scan ReportSigned Patient: Cheryl Aquino R#: [id number]: 1940Acct:[id number]/Sex: 80 / FDate of Service: 08/16/20Loc: EDAccession Number: [id number] Procedure: CT angio chest PE protocol Ordering Provider: Keagan Chavez D.O. PROCEDURE: CT ANGIO CHEST PE PROTOCOL INDICATIONS: short of breath, tachycardia, recent surgery, history of PE TECHNIQUE: After the administration of intravenous contrast, 2 mm thick sections acquired from the pulmonary apices to the posterior costophrenic angles. 3-dimensional maximum intensity projection (MIP) coronal and sagittal reformats were then acquired through the thorax. For radiation dose reduction, the following was used: automated exposure control, adjustment of mA and/or kV according to patient size. COMPARISON: [facility], CT, CT CHEST ABD PEL W CON, 07/06/2020, 11:47. [facility], CR, XR CHEST 1V, 08/16/2020, 18:27. FINDINGS: Image quality: Excellent. Pulmonary arteries: There are multiple bilateral pulmonary artery filling defects in the upper and lower lobes consistent with acute pulmonary emboli. Lungs and pleura: Lungs are clear. No pleural effusions or pneumothorax. Central and peripheral airways are patent. Mediastinum: Normal heart size. No findings of right heart strain. No pericardial effusion. No threshold enlarged mediastinal or hilar lymph node. Moderate-sized hiatal hernia with adjacent compressive atelectasis. Bones and chest wall: No lytic or blastic osseous lesion. Vertebral body heights are maintained. Degenerative changes throughout the spine. Abdomen: Visualized upper abdominal solid organs appear normal in the early arterial phase of enhancement. IMPRESSION: Multiple bilateral pulmonary emboli. No CT evidence of right heart strain. Findings were discussed with Dr. Keagan Chavez at 7:50 p.m. On 08/16/2020 Dictated by: Amish Boyce M.D. on 08/16/2020 at 19:51 Approved by: Amish Boyce M.D. on 08/16/2020 at 19:55 MDM Narrative Medical decision making narrative: Patient with recent surgical intervention presents with symptoms consistent with PE. Imaging confirms this diagnosis and there is no evidence of strain on the CT or EKG. She does have a bump in her troponin and seems to have very little reserve and it takes little to cause her to decompensate. She stands a high risk of decompensation requires transfer to a facility with ability to intervene if necessary. Discharge Plan Departure Patient Disposition: [facility] Clinical Impression: Pulmonary embolism, bilateral Prescriptions: No Action citalopram 20 mg tablet 20 mg PO DAILY RF: 0 omeprazole 20 mg capsule,delayed release(DR/EC) 20 mg PO DAILY RF: 0 citalopram 10 mg Tablet 20 mg PO DAILY RF: 0 omeprazole 20 mg Capsule,Delayed Release(Dr/Ec) 20 mg PO DAILY RF: 0 acetaminophen [Tylenol Extra Strength] 500 mg Capsule 500 mg PO QID PRN (Reason: Pain (Scale Score 1-3)) RF: 0 Referrals: Vereince Coulter MD [Primary Care Provider] -
[2020-08-16 19:36] LABS: Blood Urea Nitrogen 14 mg/dL (7-17); Calcium 8.8 mg/dL (8.4-10.2); Carbon Dioxide 24 mmol/L (22-32); Chloride 105 mmol/L (98-107); Creatine Kinase 46 U/L (30-135); Estimated Glomerular Filt Rate > 60.0 mL/min (>60); Glucose 149 mg/dL (80-110); HEMOLYSIS 46 (0-50); Magnesium 2.2 mg/dL (1.6-2.3); Potassium 4.5 mmol/L (3.4-5.1); Sodium 137 mmol/L (137-145)
[2020-08-16 19:49] LABS: Alanine Aminotransferase 18 IU/L (<35); Albumin 3.8 g/dL (3.5-5.0); Alkaline Phosphatase 107 U/L (38-126); Bilirubin Total 0.4 mg/dL (0.2-1.3); NT-proBNP (BNP-Adult 18+) 232 pg/mL (<450); Total Protein 7.4 g/dL (6.3-8.2)
[2020-08-16 19:52] LABS: COVID19 - ADMIT (NP swab/PCR) Negative (Negative)
[2020-08-16 19:54] LABS: Procalcitonin 0.11 ng/mL (<0.5)
[2020-08-16] MEDS: HEPARIN DRIP 25,000 UNIT/500 ML IV.SOLN 29.393 UNIT IV (20:07)
[2020-08-16] MEDS: HEPARIN 5,000 UNIT/ML VIAL 6500 UNIT IV (20:07)
[2020-08-16] MEDS: SODIUM CHLORIDE 0.9% 500 ML 250 ML IV (20:10)
[2020-08-16 20:20] LABS: Aspartate Aminotransferase 40 IU/L (14-36)
[2020-08-16 20:26] LABS: Troponin I 0.396 ng/mL (0.01-0.034)
[2020-08-16] MEDS: LORazepam 2 MG/ML INJ 0.5 MG IV (20:38)
[2020-08-16] MEDS: MORPHINE 2 MG/ML INJ IV ×3 (20:43→22:07)
[2020-08-16 21:50] LABS: pH ABG 7.39 (7.35-7.45)
[2020-08-16 21:51] LABS: Fractionated Inspired Oxygen 32; HCO3 ABG 25 mmol/L (22-26); Oxygen Saturation ABG 97 % (95-100); PCO2 ABG 41.6 mmHg (35-45); PO2 ABG 88 mmHg (80-100); TCO2 ABG 26 mmol/L (21-31)
== END 2020-08-16 22:51 | disposition short-term general hospital (02) ==
PROVIDERS: Emergency Provider Emergency Medicine; PCP Student in an Organized Health Care Education/Training Program
DX: I26.99 Other pulmonary embolism without acute cor pulmonale (principal); R09.02 Hypoxemia; R00.0 Tachycardia, unspecified; Z20.822 Contact with and (suspected) exposure to COVID-19
CPT/HCPCS: 36415; 36600; 71045; 71275; 80048; 82040; 82247; 82550; 82805; 83735; 83880; 84075; 84145; 84155; 84450; 84460; 84484; 85025; 87635; 93005; 93010; 96365; 96366; 96375; 99285; J1644; J2060; J2270; Q9967

== ENCOUNTER 2020-11-19 13:28 | Inpatient (IN) | payer MEDICARE, OTHER, SELFPAY ==
[2020-03-22 20:12] VITALS: BMI 34.8
[2020-11-19] VITALS (33 sets, daily range): BP systolic 115–149; BP diastolic 57–89; PULSE 84–128; RESP 10–24; TEMP 36.3–37.2; O2SAT 80–99; BMI 30.6; BMI 31.8
--- NOTE | 2020-11-19 | DI.CT.S_ITS ---
PROCEDURE: CT ABDOMEN PELVIS W CON INDICATIONS: broken hip, possible bleeding in pelvis. TECHNIQUE: After the administration of intravenous contrast, axial sections acquired from the lung bases to the pubic symphysis. Coronal and sagittal reformats were performed. For radiation dose reduction, the following was used: automated exposure control, adjustment of mA and/or kV according to patient size. COMPARISON: [facility], CR, XR HIP W PEL IF DONE RT 2V, 11/19/2020, 13:47. [facility] With [facility], CT, CT CHEST ABD PEL W CON, 07/06/2020, 11:47. [facility] With [facility], CT, CT ABDOMEN PELVIS W CON, 03/05/2020, 11:26. FINDINGS: Image quality: Excellent. Lung bases: Unremarkable. Heart: No significant findings. ABDOMEN: Liver: Liver is enlarged with steatosis. Gallbladder: Has been removed Biliary ducts: Unremarkable. Pancreas: Unremarkable. Spleen: Unremarkable. Adrenal Glands: Unchanged left fat containing adrenal nodule. Right adrenal gland is unremarkable. Kidneys and Ureters: Unremarkable. Stomach and Bowel: Stomach, small bowel loops, and colon are unremarkable. Peritoneum: No abnormal intraperitoneal fluid. No free air. Ventral Wall: No hernias. Abdominal Nodes: No retroperitoneal or mesenteric adenopathy by size criteria. Vessels: Aorta and inferior vena cava are normal in size. PELVIS: Pelvic Organs: Unremarkable. Bladder: The bladder is collapsed with a Whitmore catheter, limiting evaluation. Pelvic Nodes: No enlarged lymph nodes. Miscellaneous: No hernias are seen. Bones: There is a dislocated right femoral neck fracture. IMPRESSION: 1. Right femoral neck fracture. No evidence of retroperitoneal or appreciable intramuscular hematoma. Dictated by: Flores Medina M.D. on 11/19/2020 at 17:35 Approved by: Flores Medina M.D. on 11/19/2020 at 17:37
--- NOTE | 2020-11-19 13:35 | DI.RAD.S_ITS ---
PROCEDURE: XR HIP W PEL IF DONE RT 2V INDICATIONS: glf right hip pain TECHNIQUE: AP pelvis with lateral view(s) of the right hip(s). COMPARISON: None. FINDINGS: Bones: Acute fracture involving right femoral neck is seen with superior migration of femoral shaft in relation to femoral head. No evidence of avascular necrosis of femoral head. Pelvic ring appears intact. No suspicious bony lesions. Soft tissues: The visualized bowel gas pattern is normal. No suspicious soft tissue calcifications. IMPRESSION: Acute displaced right femoral neck fracture as above. Dictated by: Hollis Rios M.D. on 11/19/2020 at 14:30 Approved by: Hollis Rios M.D. on 11/19/2020 at 14:30
[2020-11-19 14:26] LABS: Add Manual Diff / Slide Review NO; Basophils Absolute Auto 100 /uL (0-100); Basophils Percent Auto 0.7 % (0-2); Eosinophils Absolute Auto 100 /uL (0-450); Hematocrit 41.1 % (36-46); Hemoglobin 13.5 g/dL (12.0-16.0); Lymphocytes Absolute Auto 1100 /uL (1100-4500); Lymphocytes Percent Auto 13.9 % (25-40); Mean Corpuscular HGB Conc 32.9 % (30-36); Mean Corpuscular Hemoglobin 27.1 PG (26-34); Mean Corpuscular Volume 82.4 fL (80-100); Monocytes Absolute Auto 400 /uL (0-900); Neutrophils Absolute Auto 6500 /uL (1500-7000); Neutrophils Percent Auto 79.4 % (50-75); Platelet Count 260 X10^3/uL (150-400); Red Blood Cell Count 4.99 X10^6/uL (4.0-5.2); Red Cell Distribution Width 14.6 % (11.6-14.8); White Blood Cell Count 8.2 X10^3/uL (4.5-11.0)
--- NOTE | 2020-11-19 14:30 | ED.LOWEXIN ---
HPI - Extremity Injury (Lower) General Chief Complaint: Extremity Injury, Lower Stated Complaint: Hip Fracture Time Seen by Provider: 11/19/20 14:30 Source: patient Mode of arrival: EMS Limitations: no limitations History of Present Illness HPI Narrative: This is an 80-year-old female comes emergency department after falling down 2 steps onto a concrete floor. Patient states she tripped going down the steps. She denies hitting her head, she denies any neck or back pain. She denies any chest pain or shortness of breath. No nausea or vomiting. No other GI or urinary symptoms. Patient has significant pain in her right hip. Any sort of movement is extremely uncomfortable. She denies any numbness or tingling. She is on Eliquis daily for prior blood clots. Patient takes omeprazole citalopram. She is allergic to codeine and states it makes her nauseated but that was many years ago. She has been on morphine before and tolerated that. She denies any loss of consciousness with her fall. No confusion. No dizziness or vision changes. Related Data Home Medications Medication Instructions Recorded Confirmed citalopram 20 mg tablet 20 mg PO DAILY 03/31/20 11/19/20 omeprazole 20 mg capsule,delayed 20 mg PO DAILY 03/31/20 11/19/20 release acetaminophen [Tylenol Extra 500 mg PO QID PRN 05/03/20 11/19/20 Strength] apixaban [Eliquis] 5 mg PO BID 08/19/20 11/19/20 Allergies Allergy/AdvReac Type Severity Reaction Status Date / Time codeine [CODEINE] Allergy Unknown Verified 11/19/20 13:37 Penicillins [PENICILLINS] Allergy Unknown Verified 11/19/20 13:37 potassium Allergy Unknown Verified 11/19/20 13:37 Review of Systems Review of Systems ROS Unobtainable: All systems reviewed & are unremarkable except as noted in HPI and below Patient History Medical History (Updated 11/19/20 @ 14:39 by Sabrina Wilkins DO) Anemia Bilateral arm fractures DVT (deep venous thrombosis) Factor 5 Leiden mutation, heterozygous Factor V Leiden GERD (gastroesophageal reflux disease) Hiatal hernia Migraine Rectocele Recurrent deep vein thrombosis (DVT) Surgical History History of cholecystectomy History of colonoscopy History of esophagogastroduodenoscopy (EGD) Hx of cholecystectomy Family History Father Cancer Brother Cancer Heart disease Social History marital status: household members: spouse occupational status: previously employed Smoking Status: Unknown if ever smoked alcohol intake: never substance use type: does not use Smoking Status: Unknown if ever smoked Alcohol type: wine Substance Use Type: does not use Exam Narrative Exam Narrative: GEN: Patient appears in moderate distress. HEAD: No evidence of trauma, no raccoon/Baez sign. NECK: Nontender, painless range of motion, trachea midline Negative for Nexus criteria, there is no mid line tenderness, distracting injury, altered mental status, neuro deficit, recent EtOH. EYES: PERRLA, EOMI ENT: External inspection normal, trachea is midline, TM's are normal no hemotypanum, Nares are clear, no septal hematoma, no dental or oral injury, airway is normal and with normal occlusion, No bony tenderness RESP: Chest is nontender and has symmetric movement, no ecchymosis, breath sounds are normal no crackles, wheezes or rales CVS: Heart sounds are normal, no murmur noted, No JVD. ABG/GI: Nontender, soft, normal bowel sounds, no distention, no organomegaly, pelvic rock is negative NEURO: Oriented AOx3, neuro is grossly intact, sensation and motor is normal all 4 extremities moving, cranial nerves II through XII are intact, GCS is 15 PSYCH: Normal mood and affect SKIN: Intact, warm and dry, no crepitus and without decubitus BACK: No CVA tenderness, no vertebral tenderness, no step-off's, no crepitus EXT: Atraumatic, patient's right hip is quite tender, left hip patient does not have any pain. She is shortened and externally rotated on the right. Does have good dorsalis pedis pulse. No cyanosis, pallor skin changes otherwise. Patient has seemed temperature both lower extremities. Initial Vital Signs Initial Vital Signs: Vital Signs Temperature 98.5 F 11/19/20 13:34 Pulse Rate 86 11/19/20 13:34 Respiratory Rate 15 11/19/20 13:34 Blood Pressure 130/89 11/19/20 13:34 Pulse Oximetry 94 11/19/20 13:34 Scores GCS [place] coma scale eye opening: Spontaneous Savi coma scale verbal response: Orientated [place] coma scale motor response: Obey commands [place] coma scale total score: 15 Course Orders Ordered: ED Orders 11/19/20 13:35 XR hip w pel if done RT 2V Stat 11/19/20 14:10 Complete Blood Count AUTO DIFF Stat Comprehensive Metabolic Panel Stat Packed Cells Stat Type and Screen Stat 11/19/20 14:31 EKG-12 Lead Stat 11/19/20 14:36 XR chest 1V Stat 11/19/20 15:15 Prothrombin Time INR Stat 11/19/20 15:21 COVID19 - ADMIT ([employer] TE[employer]ER swab/PCR) Stat 11/19/20 15:36 Urinalysis and Microscopic Stat 11/19/20 16:24 CT angio chest PE protocol Stat Acetaminophen (Acetaminophen 325 Mg Tablet) 650 mg PO Q6HR PRN PRN Reason: Fever, pain Apixaban (Apixaban 5 Mg Tablet) 5 mg PO BID [facility] Citalopram Hydrobromide (Citalopram 10 Mg Tablet) 20 mg PO DAILY [facility] Docusate Sodium (Docusate 100 Mg Capsule) 100 mg PO BID PRN PRN Reason: constipation Dextrose/Sodium Chloride (Dextrose 5%-0.45% Ns) 1,000 mls @ 125 mls/hr IV CONT LUCY Last Admin: 11/19/20 19:44 Dose: 125 mls/hr Documented by: CWHITE Morphine Sulfate (Morphine 2 Mg/Ml Inj) 1 mg IV Q4HR PRN PRN Reason: pain Last Admin: 11/19/20 19:29 Dose: 1 mg Documented by: CWHITE Naloxone HCl (Naloxone 0.4 Mg/Ml Vial) 0.2 mg IV Q2MIN PRN PRN Reason: Opiate Reversal Pantoprazole Sodium (Pantoprazole Dr 20 Mg Tablet) 20 mg PO 0600 [facility] Discontinued Medications Hydromorphone HCl (Hydromorphone 1 Mg Inj) 1 mg IV NOW ONE Stop: 11/19/20 15:26 Last Admin: 11/19/20 15:26 Dose: 1 mg Documented by: CSIEDLE Sodium Chloride (Normal Saline 0.9%) 1,000 mls @ 500 mls/hr IV BOLUS ONE Stop: 11/19/20 18:05 Last Infusion: 11/19/20 17:00 Dose: 0 mls/hr Documented by: Admin: 11/19/20 16:33 Dose: 500 mls/hr Documented by: MARIVEL Dextrose/Sodium Chloride (Dextrose 5%-0.9% Ns) 1,000 mls @ 100 mls/hr IV CONT LUCY Morphine Sulfate (Morphine 4 Mg/Ml Inj) 4 mg IV NOW ONE Stop: 11/19/20 14:32 Last Admin: 11/19/20 14:54 Dose: 4 mg Documented by: PAT Ondansetron HCl (Ondansetron 4 Mg/2 Ml Inj) 4 mg IV NOW ONE Stop: 11/19/20 14:32 Last Admin: 11/19/20 14:54 Dose: 4 mg Documented by: PAT Vital Signs Vital signs: Vital Signs - 8 hr 11/19/20 13:34 11/19/20 13:40 11/19/20 14:00 Temperature 98.5 F Pulse Rate 86 84 87 Respiratory Rate 15 Blood Pressure 130/89 Pulse Oximetry 94 96 96 11/19/20 14:30 11/19/20 15:00 11/19/20 15:30 Temperature Pulse Rate 87 87 93 H Respiratory Rate Blood Pressure Pulse Oximetry 92 94 94 11/19/20 16:00 11/19/20 16:04 11/19/20 16:30 Temperature Pulse Rate 121 H 128 H 125 H Respiratory Rate 23 Blood Pressure 149/75 H Pulse Oximetry 89 L 90 L MDM - Extremity Injury (Lower) Lab Data Attestation: I reviewed the patient's lab results. Result diagrams: 11/19/20 14:10 11/19/20 14:10 Labs: Lab Results 11/19/20 11/19/20 11/19/20 Range/Units 14:10 14:10 14:10 WBC 8.2 (4.5-11.0) X10^3/uL RBC 4.99 (4.0-5.2) X10^6/uL Hgb 13.5 (12.0-16.0) g/dL Hct 41.1 (36-46) % MCV 82.4 (80-100) fL MCH 27.1 (26-34) PG MCHC 32.9 (30-36) % RDW 14.6 (11.6-14.8) % Plt Count 260 (150-400) X10^3/uL Neut % (Auto) 79.4 H (50-75) % Lymph % (Auto) 13.9 L (25-40) % [place] % (Auto) 5.0 (3-14) % Eos % (Auto) 1.0 L (2-4) % Baso % (Auto) 0.7 (0-2) % Neut # (Auto) 6500 (1480-3533) /uL Lymph # (Auto) 1100 (9846-9186) /uL [place] # (Auto) 400 (0-900) /uL Eos # (Auto) 100 (0-450) /uL Baso # (Auto) 100 (0-100) /uL PT (10.1-12.7) SECONDS INR (0.9-1.3) Sodium 135 L (137-145) mmol/L Potassium 4.4 (3.4-5.1) mmol/L Chloride 105 (98-107) mmol/L Carbon Dioxide 22 (22-32) mmol/L BUN 17 (7-17) mg/dL Creatinine 0.57 (0.52-1.04) mg/dL Estimated GFR > 60.0 (>60) mL/min BUN/Creatinine Ratio 29.8 H (6-22) Glucose 117 H (80-110) mg/dL Calcium 9.4 (8.4-10.2) mg/dL Total Bilirubin 0.5 (0.2-1.3) mg/dL AST 53 H (14-36) IU/L ALT 28 (<35) IU/L Alkaline Phosphatase 130 H (38-126) U/L Total Protein 7.6 (6.3-8.2) g/dL Albumin 4.0 (3.5-5.0) g/dL Globulin 3.6 (1.7-4.1) g/dL Albumin/Globulin Ratio 1.1 (1.0-2.8) Urine Color Urine Appearance Urine pH (4.5-8.0) Ur Specific [place] (1.000-1.035) Urine Protein (Negative) Urine Glucose (UA) (Negative) g/dL Urine Ketones (NEGATIVE) Urine Occult Blood (Negative) Urine Nitrate (Negative) Urine Bilirubin (NEGATIVE) Urine Urobilinogen (0.2) E.U./dL Ur Leukocyte Esterase (NEGATIVE) Urine RBC (0-5/HPF) Urine WBC (0-5/HPF) Urine Bacteria (None) Urine Mucus (Negative) Ur Culture Indicated? SARS-CoV-2 (PCR) (Negative) Blood Type A Positive Antibody Screen Negative Crossmatch See Detail 11/19/20 11/19/20 11/19/20 Range/Units 15:15 15:21 15:36 WBC (4.5-11.0) X10^3/uL RBC (4.0-5.2) X10^6/uL Hgb (12.0-16.0) g/dL Hct (36-46) % MCV (80-100) fL MCH (26-34) PG MCHC (30-36) % RDW (11.6-14.8) % Plt Count (150-400) X10^3/uL Neut % (Auto) (50-75) % Lymph % (Auto) (25-40) % [place] % (Auto) (3-14) % Eos % (Auto) (2-4) % Baso % (Auto) (0-2) % Neut # (Auto) (1297-4288) /uL Lymph # (Auto) (5325-8825) /uL [place] # (Auto) (0-900) /uL Eos # (Auto) (0-450) /uL Baso # (Auto) (0-100) /uL PT 15.7 H (10.1-12.7) SECONDS INR 1.4 H (0.9-1.3) Sodium (137-145) mmol/L Potassium (3.4-5.1) mmol/L Chloride (98-107) mmol/L Carbon Dioxide (22-32) mmol/L BUN (7-17) mg/dL Creatinine (0.52-1.04) mg/dL Estimated GFR (>60) mL/min BUN/Creatinine Ratio (6-22) Glucose (80-110) mg/dL Calcium (8.4-10.2) mg/dL Total Bilirubin (0.2-1.3) mg/dL AST (14-36) IU/L ALT (<35) IU/L Alkaline Phosphatase (38-126) U/L Total Protein (6.3-8.2) g/dL Albumin (3.5-5.0) g/dL Globulin (1.7-4.1) g/dL Albumin/Globulin Ratio (1.0-2.8) Urine Color Yellow Urine Appearance Clear Urine pH 5.5 (4.5-8.0) Ur Specific [place] 1.020 (1.000-1.035) Urine Protein Trace H (Negative) Urine Glucose (UA) Negative (Negative) g/dL Urine Ketones 1+ H (NEGATIVE) Urine Occult Blood Negative (Negative) Urine Nitrate Negative (Negative) Urine Bilirubin Negative (NEGATIVE) Urine Urobilinogen 0.2 (0.2) E.U./dL Ur Leukocyte Esterase Negative (NEGATIVE) Urine RBC None seen (0-5/HPF) Urine WBC None seen (0-5/HPF) Urine Bacteria None seen (None) Urine Mucus 2+ H (Negative) Ur Culture Indicated? Cult not indicated SARS-CoV-2 (PCR) Negative (Negative) Blood Type Antibody Screen Crossmatch Imaging Data Extremity x-ray #1: Radiologist's Impression: Cheryl Aquino Jennifer 80 F [address] [id number] ReportSigned Patient: Cheryl Aquino R#: [id number]: [id number]:[id number]/Sex: 80 / FDate of Service: 11/19/20Loc: EDAccession Number: [id number] Procedure: XR hip w pel if done RT 2V Ordering Provider: Sabrina Wilkins D.O. PROCEDURE: XR HIP W PEL IF DONE RT 2V INDICATIONS: glf right hip pain TECHNIQUE: AP pelvis with lateral view(s) of the right hip(s). COMPARISON: None. FINDINGS: Bones: Acute fracture involving right femoral neck is seen with superior migration of femoral shaft in relation to femoral head. No evidence of avascular necrosis of femoral head. Pelvic ring appears intact. No suspicious bony lesions. Soft tissues: The visualized bowel gas pattern is normal. No suspicious soft tissue calcifications. IMPRESSION: Acute displaced right femoral neck fracture as above. Dictated by: Hollis Rios M.D. on 11/19/2020 at 14:30 Approved by: Hollis Rios M.D. on 11/19/2020 at 14:30 CT scan - abdomen/pelvis: Radiologist's Impression: nap, for retroperitoneal bleed no enlarging hematoma noted. Right femoral neck fracture is noted. CT scan - chest: Radiologist's Impression: [address] [id number] Scan ReportSigned Patient: Cheryl Aquino JMR#: [id number]: 1940Acct:[id number]/Sex: 80 / FDate of Service: 11/19/20Lo: [id number] Number: [id number] Procedure: CT angio chest PE protocol Ordering Provider: Sabrina Wilkins D.O. PROCEDURE: CT ANGIO CHEST PE PROTOCOL INDICATIONS: fall, hip fracture TECHNIQUE: After the administration of intravenous contrast, 2 mm thick sections acquired from the pulmonary apices to the posterior costophrenic angles. 3-dimensional maximum intensity projection (MIP) coronal and sagittal reformats were then acquired through the thorax. For radiation dose reduction, the following was used: automated exposure control, adjustment of mA and/or kV according to patient size. COMPARISON: [facility], [place], CT ANGIO CHEST PE PROTOCOL, 08/16/2020, 19:26. FINDINGS: Image quality: Excellent. Pulmonary arteries: Pulmonary arteries are normal in size, and demonstrate no intraluminal filling defects to suggest central pulmonary embolism. Previous pulmonary embolism identified on 08/16/2020 has resolved. Lungs and pleura: Lungs are clear. No pleural effusions or pneumothorax. Central and peripheral airways are patent. Mediastinum: Heart size is normal, without pericardial effusion. No mediastinal or hilar adenopathy. Thoracic aorta is normal in caliber and enhancement. Esophagus is normal in caliber, with large hiatal hernia. Bones and chest wall: No suspicious bony lesions. Ribs and thoracic spine appear intact throughout. Thyroid gland is unremarkable. No axillary or supraclavicular adenopathy. Abdomen: Visualized upper abdominal solid organs appear normal in the early arterial phase of enhancement. IMPRESSION: 1. No pulmonary embolism. Previous embolism from 08/16/2020 has resolved. 2. No consolidations or effusions. Dictated by: Flores Medina M.D. on 11/19/2020 at 17:29 Approved by: Flores Medina M.D. on 11/19/2020 at 17:34 ECG Data Attestation: I personally reviewed and interpreted this ECG as follows: Interpretation: Sinus rhythm short [place], rate 87 P are 104 QRS of [address]TC [address] No acute ST elevation depressions noted. EKG 2. Shows sinus tachycardia, frequent PVCs but otherwise appears fairly regular. Heart rate is in the 120s, P are is 148 QRS of 92 and QTC is 449. No significant ST elevation appreciated. MDM Narrative Medical decision making narrative: This is an 80-year-old female comes in with fracture. Patient had fallen down 2 steps. She denies hitting her head any neck or back pain. While in the department patient had hypoxia which may have been secondary to on her chronic pain control but also developed tachycardia. Patient was given a small dose of Narcan which improved her hypoxia and and also improved her elevated end-tidal CO2 but patient continued to have symptoms. Based on her recent femoral fracture, per pulmonary emboli constellation of symptoms CT of chest abdomen and pelvis was included with angiography to also evaluate PE. Patient did not have any acute changes on CT angio or chest time pelvis but no retroperitoneal hematoma or large blood collection at the hip. Patient did receive some blood. She was placed on BiPAP which did improve her symptoms, ABG was noted to be acidotic with hypercapnia/respiratory acidosis. her and her mentation has also improved. Patient's tachycardia has continued with persistent in the 1 teens, she did have 1 or 2 episodes that seemed to be almost irregular but were not regularly captured on EKG. Patient was updated by Dr. Coulter for ICU. Patient case was also discussed with Dr. Beltran with consultation. Patient is anticoagulated and will likely need several days before going to the OR secondary to her anticoagulation. Discharge Plan Departure Patient Disposition: Admitted As Inpatient Clinical Impression: Closed hip fracture Admit Date/Time: 11/19/20 16:59 Admit Provider: Verenice Coulter
[2020-11-19 14:34] LABS: Alanine Aminotransferase 28 IU/L (<35); Albumin Globulin Ratio 1.1 (1.0-2.8); Alkaline Phosphatase 130 U/L (38-126); Aspartate Aminotransferase 53 IU/L (14-36); BUN Creatinine Ratio 29.8 (6-22); Bilirubin Total 0.5 mg/dL (0.2-1.3); Blood Urea Nitrogen 17 mg/dL (7-17); Calcium 9.4 mg/dL (8.4-10.2); Carbon Dioxide 22 mmol/L (22-32); Chloride 105 mmol/L (98-107); Estimated Glomerular Filt Rate > 60.0 mL/min (>60); Globulin 3.6 g/dL (1.7-4.1); Glucose 117 mg/dL (80-110); HEMOLYSIS 23 (0-50); Potassium 4.4 mmol/L (3.4-5.1); Sodium 135 mmol/L (137-145); Total Protein 7.6 g/dL (6.3-8.2)
--- NOTE | 2020-11-19 14:36 | DI.RAD.S_ITS ---
PROCEDURE: XR CHEST 1V INDICATIONS: fall, hip fracture TECHNIQUE: One view of the chest was acquired. COMPARISON: [facility], [place], XR CHEST 1V, 08/16/2020, 18:27. FINDINGS: Surgical changes and devices: Partially visualized left humeral fixation. Cholecystectomy clips. Lungs and pleura: Chronic interstitial changes are present. No consolidations. Minimal blunting of the left costophrenic angle is present. Mediastinum: Mediastinal contours appear normal. Heart size is mildly enlarged. Bones and chest wall: No suspicious bony lesions. Overlying soft tissues appear unremarkable. IMPRESSION: Chronic interstitial changes. No visualized acute fracture or dislocation. However, if clinical concern and/or pain persist, short interval imaging followup in 7-10 days is recommended, as occult injury cannot be definitively excluded. Dictated by: Flores Medina M.D. on 11/19/2020 at 14:51 Approved by: Flores Medina M.D. on 11/19/2020 at 14:52
[2020-11-19] MEDS: MORPHINE 4 MG/ML INJ IV (14:54)
[2020-11-19] MEDS: ONDANSETRON 4 MG/2 ML INJ IV (14:54)
[2020-11-19] MEDS: HYDROMORPHONE 1 MG INJ IV (15:26)
[2020-11-19 15:30] LABS: INR 1.4 (0.9-1.3); Prothrombin Time 15.7 SECONDS (10.1-12.7)
[2020-11-19 15:40] LABS: Bacteria Urine None Seen; RBC Urine None Seen (0-5/HPF); WBC Urine None Seen (0-5/HPF)
[2020-11-19 15:41] LABS: Appearance Urine UA CLEAR; Bilirubin Urine UA NEGATIVE (NEGATIVE); Color Urine UA YELLOW; Glucose Urine UA NEGATIVE (Negative); Ketones Urine UA 1+ (NEGATIVE); Leukocyte Esterase Urine UA NEGATIVE (NEGATIVE); Nitrite Urine UA NEGATIVE (Negative); Occult Blood Urine UA NEGATIVE (Negative); Protein Urine UA TRACE (Negative); Urobilinogen Urine UA 0.2 E.U./dL (0.2)
[2020-11-19 15:46] LABS: pH Urine UA 5.5 (4.5-8.0)
[2020-11-19 15:48] LABS: Culture Indicated Urine Cult Not Indicated; Mucus Urine 2+ (Negative)
--- NOTE | 2020-11-19 16:24 | DI.CT.S_ITS ---
PROCEDURE: CT ANGIO CHEST PE PROTOCOL INDICATIONS: fall, hip fracture TECHNIQUE: After the administration of intravenous contrast, 2 mm thick sections acquired from the pulmonary apices to the posterior costophrenic angles. 3-dimensional maximum intensity projection (MIP) coronal and sagittal reformats were then acquired through the thorax. For radiation dose reduction, the following was used: automated exposure control, adjustment of mA and/or kV according to patient size. COMPARISON: [facility], CT, CT ANGIO CHEST PE PROTOCOL, 08/16/2020, 19:26. FINDINGS: Image quality: Excellent. Pulmonary arteries: Pulmonary arteries are normal in size, and demonstrate no intraluminal filling defects to suggest central pulmonary embolism. Previous pulmonary embolism identified on 08/16/2020 has resolved. Lungs and pleura: Lungs are clear. No pleural effusions or pneumothorax. Central and peripheral airways are patent. Mediastinum: Heart size is normal, without pericardial effusion. No mediastinal or hilar adenopathy. Thoracic aorta is normal in caliber and enhancement. Esophagus is normal in caliber, with large hiatal hernia. Bones and chest wall: No suspicious bony lesions. Ribs and thoracic spine appear intact throughout. Thyroid gland is unremarkable. No axillary or supraclavicular adenopathy. Abdomen: Visualized upper abdominal solid organs appear normal in the early arterial phase of enhancement. IMPRESSION: 1. No pulmonary embolism. Previous embolism from 08/16/2020 has resolved. 2. No consolidations or effusions. Dictated by: Flores Medina M.D. on 11/19/2020 at 17:29 Approved by: Flores Medina M.D. on 11/19/2020 at 17:34
--- NOTE | 2020-11-19 16:26 | PC.NURSE ---
Pt given 1mg dilaudid for pain. Noted to desat to 87%. placed on 2L NC with improvement to 94%. Shortly thereafter, Pt noted to have increased HR into the 130s, SPO2 85-87% despite 2L NC. O2 incresed to 3L and placed on ETCO2. Radial pulse regular to palp. RT called for EKG, ETCO2 58-63. Pt drowsy and startles easily, confused. Dr Wilkins made aware RN concerned for bleeding. 0.1mg Narcan given IV. 500ml NS bolus infusing. STAT CT scan ordered and awaiting further orders.
[2020-11-19 16:28] LABS: COVID19 - ADMIT (NP swab/PCR) Negative (Negative)
[2020-11-19] MEDS: NALOXONE 0.4 MG/ML VIAL IV (16:33)
[2020-11-19] MEDS: SODIUM CHLORIDE 0.9% 1,000 ML 500 ML IV (16:33)
--- NOTE | 2020-11-19 17:06 | PC.NURSE ---
pt taken to and from CT without complication. Appears to be more awake and able to follow commands. appears in pain. O2 continues to be 85% on 4L. Dr Wilkins aware. ETCO2 [address] NS continues to infuse post CT with contrast. Awaiting blood from blood bank. Will continue to monitor
--- NOTE | 2020-11-19 17:33 | PC.NURSE ---
1720: Pt O2 sat continues to decompensate despite O2 delivery--79-80% on 4L NC, ETCO2 58-60. Pt awake and pulling at lines and legs. RT called to place pt on bipap. Blood infusing. Unable to obtain 2nd IV line x 2 RN. 1736: Pt tolerating bipap well. weaned to FiO2 45% 05/01. appears more comfortable. SPO2 96% HR improving to 115.
[2020-11-19 18:03] LABS: Fractionated Inspired Oxygen 45; HCO3 ABG 26 mmol/L (22-26); Oxygen Saturation ABG 96 % (95-100); PCO2 ABG 60.3 mmHg (35-45); PO2 ABG 99 mmHg (80-100); TCO2 ABG 28 mmol/L (21-31); pH ABG 7.25 (7.35-7.45)
--- NOTE | 2020-11-19 18:09 | RT ---
Pt placed on Bipap for desat of 78% on o2. stated pt more aloc and hypoxic. Bag mask unit at [facility] and Bipap plugged into red outlet. ABG to follow post 20 min.. Pt gabriela well, no distress noted
--- NOTE | 2020-11-19 19:13 | P.HP_ITS ---
History of Present Illness History of Present Illness Date Patient Seen: 11/19/20 Time Patient Seen: 19:13 Chief complaint: Hip Fracture Narrative: This is an 80-year-old female is admitted from the ED status post a right femoral neck fracture. Patient tripped while going down 2 steps, was unable to get up, so called EMS. Denies loss of consciousness. No chest pain or shortness of breath. No numbness or tingling. No dizziness, confusion, or vision changes. She is on Eliquis for prior/recent DVT/PE. Vital signs upon admission to the ED included temperature of 98.5?, pulse 86 respirations 16 blood pressure 130/89, O2 saturation 94% on room air. While in the emergency department, patient had hypoxia and tachycardia and was given a small dose of Narcan which improved her hypoxia and elevated her end-tidal CO2 but she continued to be symptomatic. ABG showed respiratory acidosis. She was placed on BiPAP and given 1 unit of packed red blood cells. Thereafter, her mentation improved but tachycardia was persistent. CT angiogram ruled out but new PE and resolution of old PE. No acute changes were noted on chest x-ray or CT. Hip x-ray showed that hematoma was not enlarging. Upon arriving to the ICU, she has received 1 dose morphine which have seemed to help her muscle spasms. Past medical history: DVT x3 status post fractures PE Sigmoid Adenocarcinoma External hemorrhoids Depression GERD Anemia, iron deficiency Anxiety History of GI bleed Rectocele Hiatal hernia Factor V Leiden deficiency Osteoporosis Past surgical history: Cholecystectomy Colonoscopy EGD LAR, sigmoid colon, 2020 Family history: Alcohol, substance abuse, asthma. No colon polyps or colon cancer. Social history: Recently remarried after her first . Spouse: Rob. PCP: Dr. Coulter Patient History Medical History Anemia Bilateral arm fractures DVT (deep venous thrombosis) Factor 5 Leiden mutation, heterozygous Factor V Leiden GERD (gastroesophageal reflux disease) Hiatal hernia Migraine Rectocele Recurrent deep vein thrombosis (DVT) Surgical History History of cholecystectomy History of colonoscopy History of esophagogastroduodenoscopy (EGD) Hx of cholecystectomy Family & Social History Family History Father Cancer Brother Cancer Heart disease Social History: household members spouse Safety & Behavioral: Feels Safe in Current Yes Environment Been Physically Hurt or No Threatened By a Person Tobacco & Substance use: Smoking Status Unknown if ever smoked alcohol intake never Substance Use Type does not use Meds Home Medications and Allergies Home Medications Medication Instructions Recorded Confirmed Type citalopram 20 mg tablet 20 mg PO DAILY 03/31/20 11/19/20 History omeprazole 20 mg capsule,delayed 20 mg PO DAILY 03/31/20 11/19/20 History release acetaminophen [Tylenol Extra 500 mg PO QID PRN 05/03/20 11/19/20 History Strength] apixaban [Eliquis] 5 mg PO BID 08/19/20 11/19/20 History Allergies Allergy/AdvReac Type Severity Reaction Status Date / Time codeine [CODEINE] Allergy Unknown Verified 11/19/20 13:37 Penicillins [PENICILLINS] Allergy Unknown Verified 11/19/20 13:37 potassium Allergy Unknown Verified 11/19/20 13:37 Review of Systems Review of Systems ROS: Yes All systems reviewed with the patient and are negative except as otherwise documented Exam Vital Signs (past 8 hours): - 11/19/20 13:34 11/19/20 13:40 11/19/20 14:00 Temperature 98.5 F Pulse Rate 86 84 87 Respiratory Rate 15 Blood Pressure 130/89 Pulse Oximetry 94 96 96 11/19/20 14:30 11/19/20 15:00 11/19/20 15:30 Temperature Pulse Rate 87 87 93 H Respiratory Rate Blood Pressure Pulse Oximetry 92 94 94 11/19/20 16:00 11/19/20 16:04 11/19/20 16:30 Temperature Pulse Rate 121 H 128 H 125 H Respiratory Rate 23 Blood Pressure 149/75 H Pulse Oximetry 89 L 90 L 11/19/20 17:00 11/19/20 17:07 11/19/20 17:15 Temperature Pulse Rate 124 H 120 H 121 H Respiratory Rate 19 18 20 Blood Pressure 146/67 H Pulse Oximetry 80 L 83 L 83 L 11/19/20 17:19 11/19/20 17:20 11/19/20 17:30 Temperature 98.5 F Pulse Rate 120 H 120 H 112 H Respiratory Rate 19 18 12 Blood Pressure 146/67 H 133/63 Pulse Oximetry 80 L 99 11/19/20 17:35 11/19/20 17:40 11/19/20 17:51 Temperature 99.0 F Pulse Rate 115 H 114 H 115 H Respiratory Rate 13 14 13 Blood Pressure 122/57 L 122/57 L 128/57 L Pulse Oximetry 96 95 11/19/20 18:00 11/19/20 18:06 11/19/20 18:10 Temperature Pulse Rate 113 H 114 H Respiratory Rate 13 14 Blood Pressure 128/62 133/63 124/59 L Pulse Oximetry 96 93 11/19/20 18:20 11/19/20 18:30 11/19/20 18:40 Temperature Pulse Rate 113 H 111 H 107 H Respiratory Rate 13 15 10 L Blood Pressure 139/60 131/60 126/60 Pulse Oximetry 93 96 97 Fraction of Inspired Oxygen 45 Oxygen Delivery Method BiPAP Oxygen Flow Rate 4 Narrative Exam Narrative: GENERAL: Sedated, on BIPAP, in and out of conversation. HEENT: Head normocephalic/atraumatic. LUNGS: Clear to ausculation bilaterally, no wheezes, rhonchi or rales. CV: Normal S1 and S2 with regular rate and rhythm, no audible murmurs, rubs or gallops. ABDOMEN: Soft, non-tender, non-distended, no organomegaly. Positive bowel sounds. EXTREMITIES: Right leg externally rotated at the hip. NEURO: Cranial nerves II through XII grossly intact, no focal deficits. PSYCH: Sedated, oriented, pleasant. SKIN: No broken skin. Objective Labs Result Diagrams: 11/19/20 14:10 11/19/20 14:10 Labs: Laboratory Results - last 24 hr 11/19/20 11/19/20 11/19/20 14:10 14:10 14:10 WBC 8.2 RBC 4.99 Hgb 13.5 Hct 41.1 MCV 82.4 MCH 27.1 MCHC 32.9 RDW 14.6 Plt Count 260 Neut % (Auto) 79.4 H Lymph % (Auto) 13.9 L [place] % (Auto) 5.0 Eos % (Auto) 1.0 L Baso % (Auto) 0.7 Neut # (Auto) 6500 Lymph # (Auto) 1100 [place] # (Auto) 400 Eos # (Auto) 100 Baso # (Auto) 100 PT INR ABG pH ABG pCO2 ABG pO2 ABG HCO3 ABG Total CO2 ABG O2 Saturation ABG Base Excess FiO2 Sodium 135 L Potassium 4.4 Chloride 105 Carbon Dioxide 22 BUN 17 Creatinine 0.57 Estimated GFR > 60.0 BUN/Creatinine Ratio 29.8 H Glucose 117 H Calcium 9.4 Total Bilirubin 0.5 AST 53 H ALT 28 Alkaline Phosphatase 130 H Total Protein 7.6 Albumin 4.0 Globulin 3.6 Albumin/Globulin Ratio 1.1 Urine Color Urine Appearance Urine pH Ur Specific [place] Urine Protein Urine Glucose (UA) Urine Ketones Urine Occult Blood Urine Nitrate Urine Bilirubin Urine Urobilinogen Ur Leukocyte Esterase Urine RBC Urine WBC Urine Bacteria Urine Mucus Ur Culture Indicated? SARS-CoV-2 (PCR) Blood Type A Positive Antibody Screen Negative Crossmatch See Detail 11/19/20 11/19/20 11/19/20 15:15 15:21 15:36 WBC RBC Hgb Hct MCV MCH MCHC RDW Plt Count Neut % (Auto) Lymph % (Auto) [place] % (Auto) Eos % (Auto) Baso % (Auto) Neut # (Auto) Lymph # (Auto) [place] # (Auto) Eos # (Auto) Baso # (Auto) PT 15.7 H INR 1.4 H ABG pH ABG pCO2 ABG pO2 ABG HCO3 ABG Total CO2 ABG O2 Saturation ABG Base Excess FiO2 Sodium Potassium Chloride Carbon Dioxide BUN Creatinine Estimated GFR BUN/Creatinine Ratio Glucose Calcium Total Bilirubin AST ALT Alkaline Phosphatase Total Protein Albumin Globulin Albumin/Globulin Ratio Urine Color Yellow Urine Appearance Clear Urine pH 5.5 Ur Specific [place] 1.020 Urine Protein Trace H Urine Glucose (UA) Negative Urine Ketones 1+ H Urine Occult Blood Negative Urine Nitrate Negative Urine Bilirubin Negative Urine Urobilinogen 0.2 Ur Leukocyte Esterase Negative Urine RBC None seen Urine WBC None seen Urine Bacteria None seen Urine Mucus 2+ H Ur Culture Indicated? Cult not indicated SARS-CoV-2 (PCR) Negative Blood Type Antibody Screen Crossmatch 11/19/20 17:47 WBC RBC Hgb Hct MCV MCH MCHC RDW Plt Count Neut % (Auto) Lymph % (Auto) [place] % (Auto) Eos % (Auto) Baso % (Auto) Neut # (Auto) Lymph # (Auto) [place] # (Auto) Eos # (Auto) Baso # (Auto) PT INR ABG pH 7.25 L* ABG pCO2 60.3 H ABG pO2 99 ABG HCO3 26 ABG Total CO2 28 ABG O2 Saturation 96 ABG Base Excess -1.0 FiO2 45 Sodium Potassium Chloride Carbon Dioxide BUN Creatinine Estimated GFR BUN/Creatinine Ratio Glucose Calcium Total Bilirubin AST ALT Alkaline Phosphatase Total Protein Albumin Globulin Albumin/Globulin Ratio Urine Color Urine Appearance Urine pH Ur Specific [place] Urine Protein Urine Glucose (UA) Urine Ketones Urine Occult Blood Urine Nitrate Urine Bilirubin Urine Urobilinogen Ur Leukocyte Esterase Urine RBC Urine WBC Urine Bacteria Urine Mucus Ur Culture Indicated? SARS-CoV-2 (PCR) Blood Type Antibody Screen Crossmatch Assessment & Plan Assessment & Plan narrative: 1. Right femoral neck fracture Plan: Dr. Beltran, orthopedic surgery consulting. Plan for ORIF on Sunday after 18:00. Have discontinued eliquis and started lovenox at 1 mg/kg SC BID due to history of DVT after previous fractures and current treatment of PE. She is hypercoagulable due to recent adenocarcinoma of the sigmoid colon and factor 5 Leiden deficiency. Plan to hold Lovenox after 18:00 on Sunday night. Will thompson pport with pain control and muscle relaxants. PT to evaluate. 2. Respiratory acidosis acute, likely due to sedative overdose Plan: Continue BiPAP for now as it is supporting patient's breathing. Will use narcotics very cautiously for pain control, currently at 25% of the dose given in the ED. 2. Anemia iron deficiency, chronic Plan: Patient has had recent Venofer 200 mg IV transfusions x6. H&H stable upon admission will trend and watch closely. Due to hypoxia in the ED had 1 unit of packed red blood. Will trend labs. 3. GERD, chronic Plan: Continue home omeprazole. 4. Adenocarcinoma, sigmoid colon fairly new Plan: She is status post a low anterior resection of her colon cancer. Not a good candidate for chemotherapy. 5. Depression, chronic Plan: Continue citalopram 20 mg p.o. q.day. Code: Full DVT prophylaxis: Lovenox COVID: Negative
[2020-11-19] MEDS: MORPHINE 2 MG/ML INJ 1 MG IV (19:29)
[2020-11-19] MEDS: DEXTROSE 5%-0.45% NS 1,000 ML 125 ML IV (19:44)
[2020-11-19] MEDS: APIXABAN 5 MG TABLET PO (20:35)
[2020-11-19] MEDS: ACETAMINOPHEN 325 MG TABLET 650 MG PO (20:35)
[2020-11-19] MEDS: DOCUSATE 100 MG CAPSULE PO (20:36)
--- NOTE | 2020-11-19 21:31 | PM.CN ---
History of Present Illness Consult details Date Patient Seen: 11/19/20 Time Patient Seen: 21:32 Chief complaint: Hip Fracture Reason for consult: Right femoral neck fracture Requesting provider: Sabrina Wilkins Narrative: Cheryl Dicknison is an 80-year-old female who suffered a ground level fall who and was unable to rise. She was taken to [facility] Emergency Room where radiographs revealed a femoral neck fracture on the right. She has a previous history of a DVT with subsequent pulmonary embolism for which she is anticoagulated on Eliquis. Orthopedic consultation has been obtained for definitive management of the fracture. Meds Home Medications and Allergies Home Medications Medication Instructions Recorded Confirmed Type citalopram 20 mg tablet 20 mg PO DAILY 03/31/20 11/19/20 History omeprazole 20 mg capsule,delayed 20 mg PO DAILY 03/31/20 11/19/20 History release acetaminophen [Tylenol Extra 500 mg PO QID PRN 05/03/20 11/19/20 History Strength] apixaban [Eliquis] 5 mg PO BID 08/19/20 11/19/20 History Allergies Allergy/AdvReac Type Severity Reaction Status Date / Time codeine [CODEINE] Allergy Unknown Verified 11/19/20 13:37 Penicillins [PENICILLINS] Allergy Unknown Verified 11/19/20 13:37 potassium Allergy Unknown Verified 11/19/20 13:37 Review of Systems Review of Systems ROS: Yes All systems reviewed with the patient and are negative except as otherwise documented Exam Vital Signs (past 8 hours): - 11/19/20 13:34 11/19/20 13:40 11/19/20 14:00 Temperature 98.5 F Pulse Rate 86 84 87 Respiratory Rate 15 Blood Pressure 130/89 Pulse Oximetry 94 96 96 11/19/20 14:30 11/19/20 15:00 11/19/20 15:30 Temperature Pulse Rate 87 87 93 H Respiratory Rate Blood Pressure Pulse Oximetry 92 94 94 11/19/20 16:00 11/19/20 16:04 11/19/20 16:30 Temperature Pulse Rate 121 H 128 H 125 H Respiratory Rate 23 Blood Pressure 149/75 H Pulse Oximetry 89 L 90 L 11/19/20 17:00 11/19/20 17:07 11/19/20 17:15 Temperature Pulse Rate 124 H 120 H 121 H Respiratory Rate 19 18 20 Blood Pressure 146/67 H Pulse Oximetry 80 L 83 L 83 L 11/19/20 17:19 11/19/20 17:20 11/19/20 17:30 Temperature 98.5 F Pulse Rate 120 H 120 H 112 H Respiratory Rate 19 18 12 Blood Pressure 146/67 H 133/63 Pulse Oximetry 80 L 99 11/19/20 17:35 11/19/20 17:40 11/19/20 17:51 Temperature 99.0 F Pulse Rate 115 H 114 H 115 H Respiratory Rate 13 14 13 Blood Pressure 122/57 L 122/57 L 128/57 L Pulse Oximetry 96 95 11/19/20 18:00 11/19/20 18:06 11/19/20 18:10 Temperature Pulse Rate 113 H 114 H Respiratory Rate 13 14 Blood Pressure 128/62 133/63 124/59 L Pulse Oximetry 96 93 11/19/20 18:20 11/19/20 18:30 11/19/20 18:40 Temperature Pulse Rate 113 H 111 H 107 H Respiratory Rate 13 15 10 L Blood Pressure 139/60 131/60 126/60 Pulse Oximetry 93 96 97 11/19/20 19:16 11/19/20 19:47 11/19/20 20:03 Temperature 98.4 F 98.2 F 99 F Pulse Rate 102 H 85 91 H Respiratory Rate 16 24 12 Blood Pressure 133/83 149/71 H 130/75 Pulse Oximetry 99 99 11/19/20 20:06 Temperature 99 F Pulse Rate 97 H Respiratory Rate 12 Blood Pressure 130/75 Pulse Oximetry 95 Fraction of Inspired Oxygen 45 Oxygen Delivery Method BiPAP Oxygen Flow Rate 45 Narrative Exam Narrative: On physical examination patient is lying in her hospital bed. She is uncomfortable if her right leg is moved. The leg is shortened and externally rotated. Calf is soft. Light touch and motion are intact in the right lower extremity. She has a 2+ dorsalis pedis pulse. Objective Labs Result Diagrams: 11/19/20 14:10 11/19/20 14:10 Labs: Laboratory Results - last 24 hr 11/19/20 11/19/20 11/19/20 14:10 14:10 14:10 WBC 8.2 RBC 4.99 Hgb 13.5 Hct 41.1 MCV 82.4 MCH 27.1 MCHC 32.9 RDW 14.6 Plt Count 260 Neut % (Auto) 79.4 H Lymph % (Auto) 13.9 L [place] % (Auto) 5.0 Eos % (Auto) 1.0 L Baso % (Auto) 0.7 Neut # (Auto) 6500 Lymph # (Auto) 1100 [place] # (Auto) 400 Eos # (Auto) 100 Baso # (Auto) 100 PT INR ABG pH ABG pCO2 ABG pO2 ABG HCO3 ABG Total CO2 ABG O2 Saturation ABG Base Excess FiO2 Sodium 135 L Potassium 4.4 Chloride 105 Carbon Dioxide 22 BUN 17 Creatinine 0.57 Estimated GFR > 60.0 BUN/Creatinine Ratio 29.8 H Glucose 117 H Calcium 9.4 Total Bilirubin 0.5 AST 53 H ALT 28 Alkaline Phosphatase 130 H Total Protein 7.6 Albumin 4.0 Globulin 3.6 Albumin/Globulin Ratio 1.1 Urine Color Urine Appearance Urine pH Ur Specific [place] Urine Protein Urine Glucose (UA) Urine Ketones Urine Occult Blood Urine Nitrate Urine Bilirubin Urine Urobilinogen Ur Leukocyte Esterase Urine RBC Urine WBC Urine Bacteria Urine Mucus Ur Culture Indicated? SARS-CoV-2 (PCR) Blood Type A Positive Antibody Screen Negative Crossmatch See Detail 11/19/20 11/19/20 11/19/20 15:15 15:21 15:36 WBC RBC Hgb Hct MCV MCH MCHC RDW Plt Count Neut % (Auto) Lymph % (Auto) [place] % (Auto) Eos % (Auto) Baso % (Auto) Neut # (Auto) Lymph # (Auto) [place] # (Auto) Eos # (Auto) Baso # (Auto) PT 15.7 H INR 1.4 H ABG pH ABG pCO2 ABG pO2 ABG HCO3 ABG Total CO2 ABG O2 Saturation ABG Base Excess FiO2 Sodium Potassium Chloride Carbon Dioxide BUN Creatinine Estimated GFR BUN/Creatinine Ratio Glucose Calcium Total Bilirubin AST ALT Alkaline Phosphatase Total Protein Albumin Globulin Albumin/Globulin Ratio Urine Color Yellow Urine Appearance Clear Urine pH 5.5 Ur Specific [place] 1.020 Urine Protein Trace H Urine Glucose (UA) Negative Urine Ketones 1+ H Urine Occult Blood Negative Urine Nitrate Negative Urine Bilirubin Negative Urine Urobilinogen 0.2 Ur Leukocyte Esterase Negative Urine RBC None seen Urine WBC None seen Urine Bacteria None seen Urine Mucus 2+ H Ur Culture Indicated? Cult not indicated SARS-CoV-2 (PCR) Negative Blood Type Antibody Screen Crossmatch 11/19/20 17:47 WBC RBC Hgb Hct MCV MCH MCHC RDW Plt Count Neut % (Auto) Lymph % (Auto) [place] % (Auto) Eos % (Auto) Baso % (Auto) Neut # (Auto) Lymph # (Auto) [place] # (Auto) Eos # (Auto) Baso # (Auto) PT INR ABG pH 7.25 L* ABG pCO2 60.3 H ABG pO2 99 ABG HCO3 26 ABG Total CO2 28 ABG O2 Saturation 96 ABG Base Excess -1.0 FiO2 45 Sodium Potassium Chloride Carbon Dioxide BUN Creatinine Estimated GFR BUN/Creatinine Ratio Glucose Calcium Total Bilirubin AST ALT Alkaline Phosphatase Total Protein Albumin Globulin Albumin/Globulin Ratio Urine Color Urine Appearance Urine pH Ur Specific [place] Urine Protein Urine Glucose (UA) Urine Ketones Urine Occult Blood Urine Nitrate Urine Bilirubin Urine Urobilinogen Ur Leukocyte Esterase Urine RBC Urine WBC Urine Bacteria Urine Mucus Ur Culture Indicated? SARS-CoV-2 (PCR) Blood Type Antibody Screen Crossmatch radiographs are reviewed and independently interpreted today. These show a femoral neck fracture on the right. This is displaced. Assessment & Plan Assessment & Plan narrative: Displaced femoral neck fracture on the right. This is best treated with hemiarthroplasty. The patient is therapeutically anticoagulated on Eliquis. We will need to wait 3-4 days for this to reverse. She may be anticoagulated on heparin or Lovenox up until Sunday night at midnight. We would plan to do surgery on her in the evening on Sunday. I have discussed the risks benefits and alternatives of hemiarthroplasty with the patient. Risks discussed included but were not limited to: Failure to improve, dislocation, leg-length discrepancy, nerve damage, infection, deep venous thrombosis, pulmonary embolism, stroke, myocardial infarction, permanent paralysis, aspiration pneumonia and . She has given her signed informed consent after this discussion. COVID-19 COVID-19 status: Negative Result date/Date tested (Pos, Neg/Pending): 11/19/20 Time Spent With Patient Time with patient: 15-24 minutes
[2020-11-20] VITALS (23 sets, daily range): BP systolic 113–140; BP diastolic 56–92; PULSE 72–87; RESP 12–43; TEMP 36.1–37.1; O2SAT 87–100
--- NOTE | 2020-11-20 00:12 | DI.RAD.S_ITS ---
PROCEDURE: XR CHEST 1V INDICATIONS: picc placement TECHNIQUE: One view of the chest was acquired. COMPARISON: [facility], CR, XR CHEST 1V, 11/19/2020, 14:40. FINDINGS: Surgical changes and devices: Left-sided PICC line is present with distal tip projecting over the proximal SVC junction. It is noted that portions of the PICC line overlying portions of the left hemithorax are not included within the field of view. Lungs and pleura: Minimal interval appearance of left costophrenic angle blunting, as well as faint opacity overlying the right middle lobe. Mediastinum: Mediastinal contours appear normal. Heart size is mildly prominent. Bones and chest wall: No suspicious bony lesions. Overlying soft tissues appear unremarkable. IMPRESSION: 1. PICC line is above. 2. Left costophrenic angle blunting with slight left basilar hazy opacity as well as patchy right middle lobe opacity, new compared to prior exam. This is suggestive of minimal effusion and areas of superimposed edema and/or atelectasis. Dictated by: Flores Medina M.D. on 11/20/2020 at 6:37 Approved by: Flores Medina M.D. on 11/20/2020 at 6:39
[2020-11-20] MEDS: DEXTROSE 5%-0.45% NS 1,000 ML 125 ML IV (04:35)
[2020-11-20] MEDS: PANTOPRAZOLE DR 20 MG TABLET PO (05:18)
[2020-11-20 05:42] LABS: Add Manual Diff / Slide Review NO; Basophils Absolute Auto 100 /uL (0-100); Basophils Percent Auto 0.5 % (0-2); Eosinophils Absolute Auto 200 /uL (0-450); Hematocrit 41.2 % (36-46); Hemoglobin 13.5 g/dL (12.0-16.0); Lymphocytes Absolute Auto 500 /uL (1100-4500); Lymphocytes Percent Auto 4.8 % (25-40); Mean Corpuscular HGB Conc 32.8 % (30-36); Mean Corpuscular Hemoglobin 27.5 PG (26-34); Mean Corpuscular Volume 83.7 fL (80-100); Monocytes Absolute Auto 300 /uL (0-900); Monocytes Percent Auto 3.1 % (3-14); Neutrophils Absolute Auto 10100 /uL (1500-7000); Neutrophils Percent Auto 89.6 % (50-75); Platelet Count 213 X10^3/uL (150-400); Red Blood Cell Count 4.93 X10^6/uL (4.0-5.2); White Blood Cell Count 11.3 X10^3/uL (4.5-11.0)
[2020-11-20 05:49] LABS: BUN Creatinine Ratio 23.1 (6-22); Blood Urea Nitrogen 12 mg/dL (7-17); Calcium 8.5 mg/dL (8.4-10.2); Carbon Dioxide 28 mmol/L (22-32); Chloride 103 mmol/L (98-107); Estimated Glomerular Filt Rate > 60.0 mL/min (>60); Glucose 162 mg/dL (80-110); HEMOLYSIS < 15 (0-50); Potassium 3.8 mmol/L (3.4-5.1); Sodium 135 mmol/L (137-145)
[2020-11-20 05:58] LABS: NT-proBNP (BNP-Adult 18+) 751 pg/mL (<450)
[2020-11-20] MEDS: ACETAMINOPHEN 325 MG TABLET 650 MG PO ×2 (06:59→12:12)
--- NOTE | 2020-11-20 07:48 | RT ---
called by RN, pt requesting to come off BIPAP, no distress noted and pt trialed off and placed on 8 lpm hfnc. Pt gabriela well and no distress. IS instructed with deep breathing exercises. Bipap placed on stby in room, at bedside and RN notified
[2020-11-20] MEDS: ENOXAPARIN 100 MG/ML SYRINGE 85 MG SUBCUT ×2 (09:00→21:04)
[2020-11-20] MEDS: CITALOPRAM 10 MG TABLET 20 MG PO (09:00)
[2020-11-20 10:01] LABS: Magnesium 1.9 mg/dL (1.6-2.3)
--- NOTE | 2020-11-20 11:12 | PT-IP ANOTE ---
Physical therapy order received and chart reviewed. Pt has a fractured hip and surgery is planned for Sunday. Will hold all mobility until after surgery. Will discharge order and wait for new orders after surgery.
--- NOTE | 2020-11-20 11:58 | PM.PN.1 ---
Subjective Subjective Date Patient Seen: 11/20/20 Time Patient Seen: 11:58 Interval history: The patient reports satisfactory pain control. Exam Vital Signs (past 8 hours): - 11/20/20 04:00 11/20/20 04:15 11/20/20 05:02 Temperature 97.6 F Pulse Rate 72 74 Respiratory Rate 15 16 Blood Pressure 125/62 125/62 125/62 Pulse Oximetry 98 98 11/20/20 05:20 11/20/20 06:00 11/20/20 07:15 Temperature 97.1 F L 97.3 F L Pulse Rate 74 74 75 Respiratory Rate 16 15 18 Blood Pressure 139/72 139/72 129/72 Pulse Oximetry 98 100 100 11/20/20 07:50 11/20/20 08:10 11/20/20 09:10 Temperature 97.7 F 97.9 F Pulse Rate 80 87 Respiratory Rate 18 14 Blood Pressure 140/74 134/63 Pulse Oximetry 98 97 95 11/20/20 09:29 11/20/20 09:34 11/20/20 09:35 Temperature Pulse Rate Respiratory Rate Blood Pressure Pulse Oximetry 96 87 L 93 Fraction of Inspired Oxygen 45 Oxygen Delivery Method Nasal Cannula Oxygen Flow Rate 2 Narrative Exam Narrative: Right leg is shortened and externally rotated. It is padded with pillows to provide position of comfort. Light touch and motion are intact in the right foot. Calf is soft. Objective Labs Result Diagrams: 11/20/20 05:25 11/20/20 05:25 Labs: Laboratory Results - last 24 hr 11/19/20 11/19/20 11/19/20 14:10 14:10 14:10 WBC 8.2 RBC 4.99 Hgb 13.5 Hct 41.1 MCV 82.4 MCH 27.1 MCHC 32.9 RDW 14.6 Plt Count 260 Neut % (Auto) 79.4 H Lymph % (Auto) 13.9 L [place] % (Auto) 5.0 Eos % (Auto) 1.0 L Baso % (Auto) 0.7 Neut # (Auto) 6500 Lymph # (Auto) 1100 [place] # (Auto) 400 Eos # (Auto) 100 Baso # (Auto) 100 PT INR ABG pH ABG pCO2 ABG pO2 ABG HCO3 ABG Total CO2 ABG O2 Saturation ABG Base Excess FiO2 Sodium 135 L Potassium 4.4 Chloride 105 Carbon Dioxide 22 BUN 17 Creatinine 0.57 Estimated GFR > 60.0 BUN/Creatinine Ratio 29.8 H Glucose 117 H Calcium 9.4 Magnesium Total Bilirubin 0.5 AST 53 H ALT 28 Alkaline Phosphatase 130 H NT-Pro-B Natriuret Pep Total Protein 7.6 Albumin 4.0 Globulin 3.6 Albumin/Globulin Ratio 1.1 Urine Color Urine Appearance Urine pH Ur Specific [place] Urine Protein Urine Glucose (UA) Urine Ketones Urine Occult Blood Urine Nitrate Urine Bilirubin Urine Urobilinogen Ur Leukocyte Esterase Urine RBC Urine WBC Urine Bacteria Urine Mucus Ur Culture Indicated? Nasal Screen MRSA (PCR) SARS-CoV-2 (PCR) Blood Type A Positive Antibody Screen Negative Crossmatch See Detail 11/19/20 11/19/20 11/19/20 15:15 15:21 15:36 WBC RBC Hgb Hct MCV MCH MCHC RDW Plt Count Neut % (Auto) Lymph % (Auto) [place] % (Auto) Eos % (Auto) Baso % (Auto) Neut # (Auto) Lymph # (Auto) [place] # (Auto) Eos # (Auto) Baso # (Auto) PT 15.7 H INR 1.4 H ABG pH ABG pCO2 ABG pO2 ABG HCO3 ABG Total CO2 ABG O2 Saturation ABG Base Excess FiO2 Sodium Potassium Chloride Carbon Dioxide BUN Creatinine Estimated GFR BUN/Creatinine Ratio Glucose Calcium Magnesium Total Bilirubin AST ALT Alkaline Phosphatase NT-Pro-B Natriuret Pep Total Protein Albumin Globulin Albumin/Globulin Ratio Urine Color Yellow Urine Appearance Clear Urine pH 5.5 Ur Specific [place] 1.020 Urine Protein Trace H Urine Glucose (UA) Negative Urine Ketones 1+ H Urine Occult Blood Negative Urine Nitrate Negative Urine Bilirubin Negative Urine Urobilinogen 0.2 Ur Leukocyte Esterase Negative Urine RBC None seen Urine WBC None seen Urine Bacteria None seen Urine Mucus 2+ H Ur Culture Indicated? Cult not indicated Nasal Screen MRSA (PCR) SARS-CoV-2 (PCR) Negative Blood Type Antibody Screen Crossmatch 11/19/20 11/19/20 11/20/20 17:47 20:30 05:25 WBC 11.3 H RBC 4.93 Hgb 13.5 Hct 41.2 MCV 83.7 MCH 27.5 MCHC 32.8 RDW 15.0 H Plt Count 213 Neut % (Auto) 89.6 H Lymph % (Auto) 4.8 L [place] % (Auto) 3.1 Eos % (Auto) 2.0 Baso % (Auto) 0.5 Neut # (Auto) 11451 H Lymph # (Auto) 500 L [place] # (Auto) 300 Eos # (Auto) 200 Baso # (Auto) 100 PT INR ABG pH 7.25 L* ABG pCO2 60.3 H ABG pO2 99 ABG HCO3 26 ABG Total CO2 28 ABG O2 Saturation 96 ABG Base Excess -1.0 FiO2 45 Sodium Potassium Chloride Carbon Dioxide BUN Creatinine Estimated GFR BUN/Creatinine Ratio Glucose Calcium Magnesium Total Bilirubin AST ALT Alkaline Phosphatase NT-Pro-B Natriuret Pep Total Protein Albumin Globulin Albumin/Globulin Ratio Urine Color Urine Appearance Urine pH Ur Specific [place] Urine Protein Urine Glucose (UA) Urine Ketones Urine Occult Blood Urine Nitrate Urine Bilirubin Urine Urobilinogen Ur Leukocyte Esterase Urine RBC Urine WBC Urine Bacteria Urine Mucus Ur Culture Indicated? Nasal Screen MRSA (PCR) Negative for mrsa SARS-CoV-2 (PCR) Blood Type Antibody Screen Crossmatch 11/20/20 11/20/20 05:25 05:25 WBC RBC Hgb Hct MCV MCH MCHC RDW Plt Count Neut % (Auto) Lymph % (Auto) [place] % (Auto) Eos % (Auto) Baso % (Auto) Neut # (Auto) Lymph # (Auto) [place] # (Auto) Eos # (Auto) Baso # (Auto) PT INR ABG pH ABG pCO2 ABG pO2 ABG HCO3 ABG Total CO2 ABG O2 Saturation ABG Base Excess FiO2 Sodium 135 L Potassium 3.8 Chloride 103 Carbon Dioxide 28 BUN 12 Creatinine 0.52 Estimated GFR > 60.0 BUN/Creatinine Ratio 23.1 H Glucose 162 H Calcium 8.5 Magnesium 1.9 Total Bilirubin AST ALT Alkaline Phosphatase NT-Pro-B Natriuret Pep 751 H Total Protein Albumin Globulin Albumin/Globulin Ratio Urine Color Urine Appearance Urine pH Ur Specific [place] Urine Protein Urine Glucose (UA) Urine Ketones Urine Occult Blood Urine Nitrate Urine Bilirubin Urine Urobilinogen Ur Leukocyte Esterase Urine RBC Urine WBC Urine Bacteria Urine Mucus Ur Culture Indicated? Nasal Screen MRSA (PCR) SARS-CoV-2 (PCR) Blood Type Antibody Screen Crossmatch [facility] Medical History Anemia Bilateral arm fractures DVT (deep venous thrombosis) Factor 5 Leiden mutation, heterozygous Factor V Leiden GERD (gastroesophageal reflux disease) Hiatal hernia Migraine Rectocele Recurrent deep vein thrombosis (DVT) Surgical History History of cholecystectomy History of colonoscopy History of esophagogastroduodenoscopy (EGD) Hx of cholecystectomy Family History Father Cancer Brother Cancer Heart disease Social History marital status: household members: spouse occupational status: previously employed Smoking Status: Unknown if ever smoked alcohol intake: never substance use type: does not use Assessment & Plan Assessment & Plan narrative: The patient is reasonably comfortable while waiting for her Eliquis to wear off so we can proceed with a right hip hemiarthroplasty for her femoral neck fracture. This is scheduled to occur on Sunday evening. Quality VTE Deep Vein Thrombosis/Pulmonary Embolism Present on Admission: No
[2020-11-20] MEDS: CYCLOBENZAPRINE 10 MG TABLET PO ×2 (12:12→21:21)
--- NOTE | 2020-11-20 12:22 | P.PN_ITS ---
Subjective Subjective Date Patient Seen: 11/20/20 Time Patient Seen: 12:23 Interval history: Patient has not had a very restful night but has been in and out of it per her , who is at her bedside. She reports that she has received wonderful care here in the hospital and is feeling silly that she fell and broke her hip. BiPAP is now off, breathing per nasal cannula, 2 L, denies difficulty breathing. Reports that her appetite is low but no nausea or vomiting. She has been drinking water. Reports that pain is controlled. Nursing reports that she has been having some pain when she needs to shift in her bed and that she has some pain in her right wrist. Exam Vital Signs (past 8 hours): - 11/20/20 05:02 11/20/20 05:20 11/20/20 06:00 Temperature 97.1 F L Pulse Rate 74 74 Respiratory Rate 16 15 Blood Pressure 125/62 139/72 139/72 Pulse Oximetry 98 100 11/20/20 07:15 11/20/20 07:50 11/20/20 08:10 Temperature 97.3 F L 97.7 F Pulse Rate 75 80 Respiratory Rate 18 18 Blood Pressure 129/72 140/74 Pulse Oximetry 100 98 97 11/20/20 09:10 11/20/20 09:29 11/20/20 09:34 Temperature 97.9 F Pulse Rate 87 Respiratory Rate 14 Blood Pressure 134/63 Pulse Oximetry 95 96 87 L 11/20/20 09:35 11/20/20 12:00 Temperature 97.8 F Pulse Rate 79 Respiratory Rate 17 Blood Pressure 117/59 L Pulse Oximetry 93 93 Fraction of Inspired Oxygen 45 Oxygen Delivery Method Nasal Cannula Oxygen Flow Rate 2 Narrative Exam Narrative: GENERAL: Sleepy, but alert and oriented. HEENT: Head normocephalic/atraumatic. LUNGS: Clear to ausculation bilaterally, no wheezes, rhonchi or rales. CV: Normal S1 and S2 with regular rate and rhythm, no audible murmurs, rubs or gallops. ABDOMEN: Soft, non-tender, non-distended, no organomegaly. Positive bowel sounds. EXTREMITIES: Right leg shortened and externally rotated at the hip. NEURO: Cranial nerves II through XII grossly intact, no focal deficits. PSYCH: Sedated, oriented, pleasant. SKIN: No broken skin. Objective Labs Result Diagrams: 11/20/20 05:25 11/20/20 05:25 Labs: Laboratory Results - last 24 hr 11/19/20 11/19/20 11/19/20 14:10 14:10 14:10 WBC 8.2 RBC 4.99 Hgb 13.5 Hct 41.1 MCV 82.4 MCH 27.1 MCHC 32.9 RDW 14.6 Plt Count 260 Neut % (Auto) 79.4 H Lymph % (Auto) 13.9 L [place] % (Auto) 5.0 Eos % (Auto) 1.0 L Baso % (Auto) 0.7 Neut # (Auto) 6500 Lymph # (Auto) 1100 [place] # (Auto) 400 Eos # (Auto) 100 Baso # (Auto) 100 PT INR ABG pH ABG pCO2 ABG pO2 ABG HCO3 ABG Total CO2 ABG O2 Saturation ABG Base Excess FiO2 Sodium 135 L Potassium 4.4 Chloride 105 Carbon Dioxide 22 BUN 17 Creatinine 0.57 Estimated GFR > 60.0 BUN/Creatinine Ratio 29.8 H Glucose 117 H Calcium 9.4 Magnesium Total Bilirubin 0.5 AST 53 H ALT 28 Alkaline Phosphatase 130 H NT-Pro-B Natriuret Pep Total Protein 7.6 Albumin 4.0 Globulin 3.6 Albumin/Globulin Ratio 1.1 Urine Color Urine Appearance Urine pH Ur Specific [place] Urine Protein Urine Glucose (UA) Urine Ketones Urine Occult Blood Urine Nitrate Urine Bilirubin Urine Urobilinogen Ur Leukocyte Esterase Urine RBC Urine WBC Urine Bacteria Urine Mucus Ur Culture Indicated? Nasal Screen MRSA (PCR) SARS-CoV-2 (PCR) Blood Type A Positive Antibody Screen Negative Crossmatch See Detail 11/19/20 11/19/20 11/19/20 15:15 15:21 15:36 WBC RBC Hgb Hct MCV MCH MCHC RDW Plt Count Neut % (Auto) Lymph % (Auto) [place] % (Auto) Eos % (Auto) Baso % (Auto) Neut # (Auto) Lymph # (Auto) [place] # (Auto) Eos # (Auto) Baso # (Auto) PT 15.7 H INR 1.4 H ABG pH ABG pCO2 ABG pO2 ABG HCO3 ABG Total CO2 ABG O2 Saturation ABG Base Excess FiO2 Sodium Potassium Chloride Carbon Dioxide BUN Creatinine Estimated GFR BUN/Creatinine Ratio Glucose Calcium Magnesium Total Bilirubin AST ALT Alkaline Phosphatase NT-Pro-B Natriuret Pep Total Protein Albumin Globulin Albumin/Globulin Ratio Urine Color Yellow Urine Appearance Clear Urine pH 5.5 Ur Specific [place] 1.020 Urine Protein Trace H Urine Glucose (UA) Negative Urine Ketones 1+ H Urine Occult Blood Negative Urine Nitrate Negative Urine Bilirubin Negative Urine Urobilinogen 0.2 Ur Leukocyte Esterase Negative Urine RBC None seen Urine WBC None seen Urine Bacteria None seen Urine Mucus 2+ H Ur Culture Indicated? Cult not indicated Nasal Screen MRSA (PCR) SARS-CoV-2 (PCR) Negative Blood Type Antibody Screen Crossmatch 11/19/20 11/19/20 11/20/20 17:47 20:30 05:25 WBC 11.3 H RBC 4.93 Hgb 13.5 Hct 41.2 MCV 83.7 MCH 27.5 MCHC 32.8 RDW 15.0 H Plt Count 213 Neut % (Auto) 89.6 H Lymph % (Auto) 4.8 L [place] % (Auto) 3.1 Eos % (Auto) 2.0 Baso % (Auto) 0.5 Neut # (Auto) 21683 H Lymph # (Auto) 500 L [place] # (Auto) 300 Eos # (Auto) 200 Baso # (Auto) 100 PT INR ABG pH 7.25 L* ABG pCO2 60.3 H ABG pO2 99 ABG HCO3 26 ABG Total CO2 28 ABG O2 Saturation 96 ABG Base Excess -1.0 FiO2 45 Sodium Potassium Chloride Carbon Dioxide BUN Creatinine Estimated GFR BUN/Creatinine Ratio Glucose Calcium Magnesium Total Bilirubin AST ALT Alkaline Phosphatase NT-Pro-B Natriuret Pep Total Protein Albumin Globulin Albumin/Globulin Ratio Urine Color Urine Appearance Urine pH Ur Specific [place] Urine Protein Urine Glucose (UA) Urine Ketones Urine Occult Blood Urine Nitrate Urine Bilirubin Urine Urobilinogen Ur Leukocyte Esterase Urine RBC Urine WBC Urine Bacteria Urine Mucus Ur Culture Indicated? Nasal Screen MRSA (PCR) Negative for mrsa SARS-CoV-2 (PCR) Blood Type Antibody Screen Crossmatch 11/20/20 11/20/20 05:25 05:25 WBC RBC Hgb Hct MCV MCH MCHC RDW Plt Count Neut % (Auto) Lymph % (Auto) [place] % (Auto) Eos % (Auto) Baso % (Auto) Neut # (Auto) Lymph # (Auto) [place] # (Auto) Eos # (Auto) Baso # (Auto) PT INR ABG pH ABG pCO2 ABG pO2 ABG HCO3 ABG Total CO2 ABG O2 Saturation ABG Base Excess FiO2 Sodium 135 L Potassium 3.8 Chloride 103 Carbon Dioxide 28 BUN 12 Creatinine 0.52 Estimated GFR > 60.0 BUN/Creatinine Ratio 23.1 H Glucose 162 H Calcium 8.5 Magnesium 1.9 Total Bilirubin AST ALT Alkaline Phosphatase NT-Pro-B Natriuret Pep 751 H Total Protein Albumin Globulin Albumin/Globulin Ratio Urine Color Urine Appearance Urine pH Ur Specific [place] Urine Protein Urine Glucose (UA) Urine Ketones Urine Occult Blood Urine Nitrate Urine Bilirubin Urine Urobilinogen Ur Leukocyte Esterase Urine RBC Urine WBC Urine Bacteria Urine Mucus Ur Culture Indicated? Nasal Screen MRSA (PCR) SARS-CoV-2 (PCR) Blood Type Antibody Screen Crossmatch [facility] Medical History Anemia Bilateral arm fractures DVT (deep venous thrombosis) Factor 5 Leiden mutation, heterozygous Factor V Leiden GERD (gastroesophageal reflux disease) Hiatal hernia Migraine Rectocele Recurrent deep vein thrombosis (DVT) Surgical History History of cholecystectomy History of colonoscopy History of esophagogastroduodenoscopy (EGD) Hx of cholecystectomy Family History Father Cancer Brother Cancer Heart disease Social History marital status: household members: spouse occupational status: previously employed Smoking Status: Unknown if ever smoked alcohol intake: never substance use type: does not use Assessment & Plan Assessment & Plan narrative: HD#1 1. Right femoral neck fracture Plan: Dr. Beltran, orthopedic surgery consulting. Plan for ORIF on Sunday after 18:00. Have discontinued eliquis, last dose on 11/19 in the am. On lovenox at 1 mg/kg SC BID due to history of DVT after previous fractures and current treatment of PE. She is hypercoagulable due to recent adenocarcinoma of the sigmoid colon and factor 5 Leiden deficiency. Plan to hold Lovenox after 18:00 on Sunday night. Will support with pain control and muscle relaxants. PT to evaluate. 2. Respiratory acidosis acute, likely due to sedative overdose, resolved Plan: Watching closely, will use narcotics very cautiously for pain control. Plan to transfer out of ICU if no longer needing BIPAP overnight. 3. Anemia iron deficiency, chronic Plan: Patient has had recent Venofer 200 mg IV transfusions x6. H&H stable upon admission will trend and watch closely. Due to hypoxia in the ED had 1 unit of packed red blood. Will trend labs. 4. GERD, chronic Plan: Continue home omeprazole. 5. Adenocarcinoma, sigmoid colon fairly new Plan: She is status post a low anterior resection of her colon cancer. Not a good candidate for chemotherapy. 6. Depression, chronic 6lan: Continue citalopram 20 mg p.o. q.day. 7. Wrist pain, right, acute, status post fall -Right wrist x-ray showed no fracture. Plan: Supportive care with pain control and ice. Code: Full DVT prophylaxis: Lovenox COVID: Negative Quality VTE Deep Vein Thrombosis/Pulmonary Embolism Present on Admission: No
--- NOTE | 2020-11-20 12:25 | PC.NURSE ---
Addendum entered by Rogelio Umaña R.N. 11/20/20 14:30: Spoke with Dr. Coulter via phone. Reported pt with frequent PVCs and 18 beat run of narrow complex tachycardia while asleep. Reported pt c/o pain not totally relieved by tylenol. Original Note: Spoke with Dr. Coulter via phone. Reported pt requested more frequent tylenol for pain in liquid form, pt c/o right wrist tenderness s/p fall stating I think I sprained it (no bruising, swelling, discoloration noted), pt taking PO food/fluids, clarified fluid rate. Telephone orders received.
--- NOTE | 2020-11-20 12:28 | DI.RAD.S_ITS ---
PROCEDURE: XR WRIST RT MIN 3V INDICATIONS: pain, s/p fall TECHNIQUE: 4 views of the wrist were acquired. COMPARISON: None. FINDINGS: Bones: No fractures or dislocations. No suspicious bony lesions. Degenerative arthritis at the base of the thumb and the triscaphe joint. Scaphoid view: Scaphoid intact. Soft tissues: No suspicious soft tissue calcifications. IMPRESSION: Primary osteoarthritis of the wrist. No evidence acute bony abnormality of the right wrist. If clinical suspicion and/or symptoms persist, further assessment with repeat plain films, or advanced imaging (e.g., CT, MRI, or bone scan) may be helpful for further assessment. Dictated by: Adrian Burnette M.D. on 11/20/2020 at 12:26 Approved by: Adrian Burnette M.D. on 11/20/2020 at 12:29
[2020-11-20] MEDS: SODIUM CHLORIDE 0.9% FLUSH 10 ML IV ×3 (12:57→21:05)
[2020-11-20] MEDS: OXYCODONE IR 5 MG TABLET 2.5 MG PO ×3 (14:43→21:21)
[2020-11-20] MEDS: ACETAMINOPHEN SUSP 650 MG/20.3 ML UDC PO (16:10)
[2020-11-21] VITALS (15 sets, daily range): BP systolic 111–151; BP diastolic 57–77; PULSE 81–91; RESP 14–28; TEMP 36.1–38.1; O2SAT 88–98
[2020-11-21] MEDS: OXYCODONE IR 5 MG TABLET 2.5 MG PO ×3 (04:39→22:20)
[2020-11-21] MEDS: ACETAMINOPHEN SUSP 650 MG/20.3 ML UDC PO ×3 (04:39→22:21)
[2020-11-21] MEDS: MORPHINE 2 MG/ML INJ 1 MG IV (04:40)
[2020-11-21 05:12] LABS: Add Manual Diff / Slide Review NO; Basophils Absolute Auto 100 /uL (0-100); Basophils Percent Auto 0.7 % (0-2); Eosinophils Absolute Auto 300 /uL (0-450); Eosinophils Percent Auto 3.1 % (2-4); Hematocrit 40.7 % (36-46); Hemoglobin 13.4 g/dL (12.0-16.0); Lymphocytes Absolute Auto 400 /uL (1100-4500); Lymphocytes Percent Auto 4.4 % (25-40); Mean Corpuscular HGB Conc 32.8 % (30-36); Mean Corpuscular Hemoglobin 27.4 PG (26-34); Mean Corpuscular Volume 83.6 fL (80-100); Monocytes Absolute Auto 300 /uL (0-900); Monocytes Percent Auto 2.8 % (3-14); Neutrophils Absolute Auto 8000 /uL (1500-7000); Platelet Count 195 X10^3/uL (150-400); Red Blood Cell Count 4.87 X10^6/uL (4.0-5.2); White Blood Cell Count 8.9 X10^3/uL (4.5-11.0)
[2020-11-21 05:22] LABS: BUN Creatinine Ratio 16.7 (6-22); Blood Urea Nitrogen 8 mg/dL (7-17); Calcium 8.6 mg/dL (8.4-10.2); Carbon Dioxide 27 mmol/L (22-32); Chloride 105 mmol/L (98-107); Estimated Glomerular Filt Rate > 60.0 mL/min (>60); Glucose 130 mg/dL (80-110); HEMOLYSIS < 15 (0-50); Potassium 3.5 mmol/L (3.4-5.1); Sodium 136 mmol/L (137-145)
[2020-11-21 05:31] LABS: NT-proBNP (BNP-Adult 18+) 1570 pg/mL (<450)
[2020-11-21] MEDS: CITALOPRAM 10 MG TABLET 20 MG PO (08:39)
[2020-11-21] MEDS: ENOXAPARIN 100 MG/ML SYRINGE 85 MG SUBCUT (08:39)
[2020-11-21] MEDS: PANTOPRAZOLE DR 20 MG TABLET PO (08:42)
[2020-11-21] MEDS: SODIUM CHLORIDE 0.9% FLUSH 10 ML IV ×4 (08:42→20:32)
--- NOTE | 2020-11-21 09:01 | P.PN_ITS ---
Subjective Subjective Date Patient Seen: 11/21/20 Time Patient Seen: 09:01 Interval history: The patient remains reasonably comfortable. Exam Vital Signs (past 8 hours): - 11/21/20 03:31 11/21/20 07:30 11/21/20 07:47 Temperature 98.1 F 96.9 F L Pulse Rate 85 81 Respiratory Rate 17 14 Blood Pressure 111/67 113/57 L Pulse Oximetry 94 96 95 Fraction of Inspired Oxygen 45 Oxygen Delivery Method Nasal Cannula Oxygen Flow Rate 3 Narrative Exam Narrative: Resting comfortably in bed. Right leg is shortened and externally rotated. Calf is soft. Light touch and motion are intact in the right lower extremity. 2+ dorsalis pedis pulse. Objective Labs Result Diagrams: 11/21/20 05:00 11/21/20 05:00 Labs: Laboratory Results - last 24 hr 11/20/20 11/21/20 11/21/20 05:25 05:00 05:00 WBC 8.9 RBC 4.87 Hgb 13.4 Hct 40.7 MCV 83.6 MCH 27.4 MCHC 32.8 RDW 15.0 H Plt Count 195 Neut % (Auto) 89.0 H Lymph % (Auto) 4.4 L [place] % (Auto) 2.8 L Eos % (Auto) 3.1 Baso % (Auto) 0.7 Neut # (Auto) 8000 H Lymph # (Auto) 400 L [place] # (Auto) 300 Eos # (Auto) 300 Baso # (Auto) 100 Sodium 136 L Potassium 3.5 Chloride 105 Carbon Dioxide 27 BUN 8 Creatinine 0.48 L Estimated GFR > 60.0 BUN/Creatinine Ratio 16.7 Glucose 130 H Calcium 8.6 Magnesium 1.9 NT-Pro-B Natriuret Pep 1570 H PFSH Medical History Anemia Bilateral arm fractures DVT (deep venous thrombosis) Factor 5 Leiden mutation, heterozygous Factor V Leiden GERD (gastroesophageal reflux disease) Hiatal hernia Migraine Rectocele Recurrent deep vein thrombosis (DVT) Surgical History History of cholecystectomy History of colonoscopy History of esophagogastroduodenoscopy (EGD) Hx of cholecystectomy Family History Father Cancer Brother Cancer Heart disease Social History marital status: household members: spouse occupational status: previously employed Smoking Status: Unknown if ever smoked alcohol intake: never substance use type: does not use Assessment & Plan Assessment & Plan narrative: Patient remains stable awaiting her right hip hemiarthroplasty. By tomorrow afternoon her Eliquis should have satisfactorily worn off. I have written orders for her to be NPO after midnight and to stop her Lovenox bridge at midnight as well. She has previously signed her informed consent document. She is scheduled for right hip hemiarthroplasty after my elective case schedule tomorrow. All of her questions were answered. COVID-19 COVID-19 status: Negative Result date/Date tested (Pos, Neg/Pending): 11/19/20 Time Spent With Patient Time with patient: less than 15 minutes Quality VTE Deep Vein Thrombosis/Pulmonary Embolism Present on Admission: No
--- NOTE | 2020-11-21 11:46 | P.PN_ITS ---
Subjective Subjective Date Patient Seen: 11/21/20 Time Patient Seen: 11:46 Interval history: Patient has just had a pain pill and is sleeping soundly at time of interview. History is obtained from her at the bedside who reports that she had an uneventful night, slept all through the night. Pain is controlled with medication. She ate her breakfast this morning without any nausea or vomiting. She is awaiting surgery tomorrow. Dr. Beltran was by this morning and has placed patient NPO after midnight tonight, allegra will be held tonight as well. Nursing reports that she requires oxygen after narcotics but no longer is needing BIPAP, now on 3L after narcotic. Exam Vital Signs (past 8 hours): - 11/21/20 07:30 11/21/20 07:47 Temperature 96.9 F L Pulse Rate 81 Respiratory Rate 14 Blood Pressure 113/57 L Pulse Oximetry 96 95 Fraction of Inspired Oxygen 45 Oxygen Delivery Method High Flow Nasal Cannula Oxygen Flow Rate 3 Narrative Exam Narrative: GENERAL: Sleeping soundly. HEENT: Head normocephalic/atraumatic. LUNGS: Clear to ausculation bilaterally, no wheezes, rhonchi or rales. CV: Normal S1 and S2 with regular rate and rhythm, no audible murmurs, rubs or gallops. ABDOMEN: Soft, non-tender, non-distended, no organomegaly. Positive bowel sounds. EXTREMITIES: Right leg shortened and externally rotated at the hip. NEURO: Cranial nerves II through XII grossly intact, no focal deficits. PSYCH: Sedated, oriented, pleasant. SKIN: No broken skin. Objective Labs Result Diagrams: 11/21/20 05:00 11/21/20 05:00 Labs: Laboratory Results - last 24 hr 11/21/20 11/21/20 05:00 05:00 WBC 8.9 RBC 4.87 Hgb 13.4 Hct 40.7 MCV 83.6 MCH 27.4 MCHC 32.8 RDW 15.0 H Plt Count 195 Neut % (Auto) 89.0 H Lymph % (Auto) 4.4 L [place] % (Auto) 2.8 L Eos % (Auto) 3.1 Baso % (Auto) 0.7 Neut # (Auto) 8000 H Lymph # (Auto) 400 L [place] # (Auto) 300 Eos # (Auto) 300 Baso # (Auto) 100 Sodium 136 L Potassium 3.5 Chloride 105 Carbon Dioxide 27 BUN 8 Creatinine 0.48 L Estimated GFR > 60.0 BUN/Creatinine Ratio 16.7 Glucose 130 H Calcium 8.6 NT-Pro-B Natriuret Pep 1570 H [facility] Medical History Anemia Bilateral arm fractures DVT (deep venous thrombosis) Factor 5 Leiden mutation, heterozygous Factor V Leiden GERD (gastroesophageal reflux disease) Hiatal hernia Migraine Rectocele Recurrent deep vein thrombosis (DVT) Surgical History History of cholecystectomy History of colonoscopy History of esophagogastroduodenoscopy (EGD) Hx of cholecystectomy Family History Father Cancer Brother Cancer Heart disease Social History marital status: household members: spouse occupational status: previously employed Smoking Status: Unknown if ever smoked alcohol intake: never substance use type: does not use Assessment & Plan Assessment & Plan narrative: HD#2 1. Right femoral neck fracture Plan: Dr. Beltran, orthopedic surgery consulting. Plan is for right hip hemiarthroplasty on Sunday around 18:00. Have discontinued eliquis, last dose on 11/19 in the am. On lovenox at 1 mg/kg SC BID due to history of DVT after previous fractures and current treatment of PE. She is hypercoagulable due to recent adenocarcinoma of the sigmoid colon and factor 5 Leiden deficiency. Plan to hold Lovenox after 18:00 tonight. Will restart eliquis post-operatively at direction of orthopedics depending on bleeding outcome of surgery. If post- procedure bleeding is low, anticipate restarting eliquis 12-24 hours after procedure. Will support with pain control and muscle relaxants. PT consulting. 2. Acute hypoxic respiratory failure, secondary to narcotics, resolves with oxygen Plan: Watching closely, using narcotics very cautiously for pain control. Transfer to ACU today as no longer needing BIPAP. 3. Anemia iron deficiency, chronic, stabe Plan: Patient has had recent Venofer 200 mg IV transfusions x6. H&H stable upon admission will trend and watch closely. Due to hypoxia in the ED had 1 unit of packed red blood. Will continue to trend labs. 4. GERD, chronic Plan: Continue home omeprazole. 5. Adenocarcinoma, sigmoid colon fairly new Plan: She is status post a low anterior resection of her colon cancer. Not a good candidate for chemotherapy. 6. Depression, chronic 6lan: Continue citalopram 20 mg p.o. q.day. 7. Wrist pain, right, acute, status post fall -Right wrist x-ray showed no fracture. Plan: Supportive care with pain control and ice. Code: Full DVT prophylaxis: Lovenox COVID: Negative Quality VTE Deep Vein Thrombosis/Pulmonary Embolism Present on Admission: No
--- NOTE | 2020-11-21 15:46 | CM.IDA ---
Initial DCP Assessment Note Pt is an 80 yo female, resident of [place], awaiting right hip surgery Sunday11.21.20 approx 1800, surgery needed after sustaining hip fx after GLF. According to Dr Beltran: anticoagulated on Eliquis. We will need to wait 3-4 days for this to reverse. She may be anticoagulated on heparin or Lovenox up until Sunday night at midnight. PCP: Verenice Coulter Payer: [facility] Met w/patient and her at bedside today, introduced SW role. Patient and spouse state they are indp. at baseline, no services in the home. Patient/spouse have adult children and grandchildren that are supportive and patient is hopeful she can return home w/outpatient PT to recover from her hip surgery. Discussed HH and SNF options, briefly, patient/spouse were not adamantly against either of these, but suggested additional conversation re: DCP s/p surgery and after therapy evals are completed. Contact information left on white board. DCP team will follow closely for coordination of DCP; patient hopeful to return home upon DC. Patient is an inpatient as of 11.20.20, [facility] coverage. JOEY Sheffield Discharge Planning/Care Management CM Discharge Assessment Start: 11/21/20 15:42 Freq: Status: Active Protocol: Document 11/21/20 15:43 JASON (Rec: 11/21/20 15:45 JASON [id number]) Discharge Planning Assessment Assigned Office Support Associate JOEY Crawford DPOA/Assigned Designee Name Rob Aquino, spouse Contact Information [phone] Advance Directives? No Advance Directives on File No History Provided By Patient,Significant Other, Medical Record Household Members spouse Type of transporation used prior to Drives own vehicle admit Independent with ADL's Yes Is patient alert and oriented? Yes Patient/Family Preference Home with Home Health Barriers to Discharge No Comment Not at this time Discharge Plan Home Transportation Arrangement Family Whiteboard Updated in Patient Room with Yes name and ext. # of Office Support Associate
[2020-11-21] MEDS: CYCLOBENZAPRINE 10 MG TABLET PO (22:20)
[2020-11-22] VITALS (47 sets, daily range): BP systolic 90–171; BP diastolic 51–95; PULSE 81–120; RESP 6–27; TEMP 36.1–37.2; O2SAT 83–97; BMI 32.4
[2020-11-22] MEDS: LACTATED RINGERS 1,000 ML 75 ML IV ×4 (00:45→22:00)
[2020-11-22] MEDS: MORPHINE 2 MG/ML INJ 1 MG IV (00:58)
[2020-11-22 06:22] LABS: Add Manual Diff / Slide Review NO; BUN Creatinine Ratio 15.2 (6-22); Basophils Absolute Auto 0 /uL (0-100); Basophils Percent Auto 0.8 % (0-2); Blood Urea Nitrogen 7 mg/dL (7-17); Calcium 8.8 mg/dL (8.4-10.2); Carbon Dioxide 29 mmol/L (22-32); Chloride 106 mmol/L (98-107); Eosinophils Absolute Auto 600 /uL (0-450); Eosinophils Percent Auto 8.8 % (2-4); Estimated Glomerular Filt Rate > 60.0 mL/min (>60); Glucose 108 mg/dL (80-110); HEMOLYSIS < 15 (0-50); Hematocrit 39.7 % (36-46); Hemoglobin 13.1 g/dL (12.0-16.0); Lymphocytes Absolute Auto 700 /uL (1100-4500); Lymphocytes Percent Auto 11.7 % (25-40); Mean Corpuscular Hemoglobin 27.6 PG (26-34); Mean Corpuscular Volume 83.6 fL (80-100); Monocytes Absolute Auto 300 /uL (0-900); Monocytes Percent Auto 5.3 % (3-14); Neutrophils Absolute Auto 4700 /uL (1500-7000); Neutrophils Percent Auto 73.4 % (50-75); Platelet Count 181 X10^3/uL (150-400); Potassium 3.3 mmol/L (3.4-5.1); Red Blood Cell Count 4.75 X10^6/uL (4.0-5.2); Red Cell Distribution Width 15.1 % (11.6-14.8); Sodium 139 mmol/L (137-145); White Blood Cell Count 6.4 X10^3/uL (4.5-11.0)
[2020-11-22 06:28] LABS: NT-proBNP (BNP-Adult 18+) 569 pg/mL (<450)
--- NOTE | 2020-11-22 07:56 | PM.PN.1 ---
Subjective Subjective Date Patient Seen: 11/22/20 Time Patient Seen: 07:56 Interval history: Patient states she is doing well overall and is in minimal discomfort at rest. She states her pain is exacerbated with movement. At this time she denies fever, chills, nausea, chest pain, or shortness of breath. Patient reports good sensation throughout the bilateral lower extremities. Patient states that she remembers her fall that resulted in her right hip injury Exam Vital Signs (past 8 hours): - 11/22/20 02:00 11/22/20 06:00 Temperature 98.0 F 98.1 F Pulse Rate 81 85 Respiratory Rate 14 15 Blood Pressure 102/67 134/64 Pulse Oximetry 95 96 Fraction of Inspired Oxygen 45 Oxygen Delivery Method High Flow Nasal Cannula Oxygen Flow Rate 3 Narrative Exam Narrative: 80-year-old female. patient is resting comfortably in bed, is in no acute distress, and is alert and oriented x3. Skin is warm and dry. Good sensation appreciated throughout the bilateral lower extremities to light touch. Tenderness to palpation appreciated the anterior medial aspect of the proximal the right thigh. Calves are soft and nontender, negative Homans sign. Ankle dorsiflexion, plantar flexion, eversion, inversion performed bilaterally without difficulty or discomfort. The DP pulses palpated bilaterally. No other signs of DVT appreciated. Const General: cooperative, healthy appearing and comfortable Resp Effort & Inspection: normal respiratory effort and able to speak in complete sentences Skin General: no rashes or lesions noted Objective Labs Result Diagrams: 11/22/20 05:05 11/22/20 05:05 Labs: Laboratory Results - last 24 hr 11/22/20 11/22/20 05:05 05:05 WBC 6.4 RBC 4.75 Hgb 13.1 Hct 39.7 MCV 83.6 MCH 27.6 MCHC 33.0 RDW 15.1 H Plt Count 181 Neut % (Auto) 73.4 Lymph % (Auto) 11.7 L [place] % (Auto) 5.3 Eos % (Auto) 8.8 H Baso % (Auto) 0.8 Neut # (Auto) 4700 Lymph # (Auto) 700 L [place] # (Auto) 300 Eos # (Auto) 600 H Baso # (Auto) 0 Sodium 139 Potassium 3.3 L Chloride 106 Carbon Dioxide 29 BUN 7 Creatinine 0.46 L Estimated GFR > 60.0 BUN/Creatinine Ratio 15.2 Glucose 108 Calcium 8.8 NT-Pro-B Natriuret Pep 569 H [facility] Medical History Anemia Bilateral arm fractures DVT (deep venous thrombosis) Factor 5 Leiden mutation, heterozygous Factor V Leiden GERD (gastroesophageal reflux disease) Hiatal hernia Migraine Rectocele Recurrent deep vein thrombosis (DVT) Surgical History History of cholecystectomy History of colonoscopy History of esophagogastroduodenoscopy (EGD) Hx of cholecystectomy Family History Father Cancer Brother Cancer Heart disease Social History marital status: household members: spouse occupational status: previously employed Smoking Status: Unknown if ever smoked alcohol intake: never substance use type: does not use Assessment & Plan Assessment & Plan narrative: Patient is doing well and is stable. Patient is scheduled for right hemiarthroplasty today.Eliquis should have satisfactorily worn off, Lovenox bridge was stopped last night. All questions and concerns have been addressed. Informed consent has been signed. Quality VTE Deep Vein Thrombosis/Pulmonary Embolism Present on Admission: No
[2020-11-22] MEDS: CITALOPRAM 10 MG TABLET 20 MG PO (09:59)
[2020-11-22] MEDS: DOCUSATE 100 MG CAPSULE PO (09:59)
[2020-11-22] MEDS: CYCLOBENZAPRINE 10 MG TABLET PO (09:59)
[2020-11-22] MEDS: OXYCODONE IR 5 MG TABLET 2.5 MG PO (10:00)
[2020-11-22] MEDS: SODIUM CHLORIDE 0.9% FLUSH 10 ML IV (10:11)
--- NOTE | 2020-11-22 12:01 | PC.NURSE ---
Day shift: Pt stated I feel like I'm hallucinating. The room is upside down and it spins when I close my eyes. Pt's spouse at bedside. Pt reports that her pain is minimal. Pt asleep at this time (1200).
--- NOTE | 2020-11-22 13:07 | PM.PN.1 ---
Subjective Subjective Date Patient Seen: 11/22/20 Time Patient Seen: 08:10 Interval history: patient overall feeling well. Just kind of depressed that she fell. Feeling like she has had some much on her plate given her issues with her colon cancer surgery. But overall has no new complaints. No chest pain. Or other changes. Still requiring small amount on oxygen. Exam Vital Signs (past 8 hours): - 11/22/20 06:00 11/22/20 08:00 11/22/20 09:29 Temperature 98.1 F 97.0 F L Pulse Rate 85 85 Respiratory Rate 15 15 Blood Pressure 134/64 149/80 H Pulse Oximetry 96 97 97 11/22/20 09:30 11/22/20 12:00 Temperature 98.2 F Pulse Rate 87 Respiratory Rate 20 Blood Pressure 171/80 H Pulse Oximetry 88 L 94 Fraction of Inspired Oxygen 45 Oxygen Delivery Method Room Air Oxygen Flow Rate 2 Narrative Exam Narrative: Alert elderly female in no acute distress Lungs are clear. Heart regular rate and rhythm. Abdomen is soft positive bowel sounds nontender. Objective Labs Result Diagrams: 11/22/20 05:05 11/22/20 05:05 Labs: Laboratory Results - last 24 hr 11/22/20 11/22/20 05:05 05:05 WBC 6.4 RBC 4.75 Hgb 13.1 Hct 39.7 MCV 83.6 MCH 27.6 MCHC 33.0 RDW 15.1 H Plt Count 181 Neut % (Auto) 73.4 Lymph % (Auto) 11.7 L [place] % (Auto) 5.3 Eos % (Auto) 8.8 H Baso % (Auto) 0.8 Neut # (Auto) 4700 Lymph # (Auto) 700 L [place] # (Auto) 300 Eos # (Auto) 600 H Baso # (Auto) 0 Sodium 139 Potassium 3.3 L Chloride 106 Carbon Dioxide 29 BUN 7 Creatinine 0.46 L Estimated GFR > 60.0 BUN/Creatinine Ratio 15.2 Glucose 108 Calcium 8.8 NT-Pro-B Natriuret Pep 569 H PFSH Medical History Anemia Bilateral arm fractures DVT (deep venous thrombosis) Factor 5 Leiden mutation, heterozygous Factor V Leiden GERD (gastroesophageal reflux disease) Hiatal hernia Migraine Rectocele Recurrent deep vein thrombosis (DVT) Surgical History History of cholecystectomy History of colonoscopy History of esophagogastroduodenoscopy (EGD) Hx of cholecystectomy Family History Father Cancer Brother Cancer Heart disease Social History marital status: household members: spouse occupational status: previously employed Smoking Status: Unknown if ever smoked alcohol intake: never substance use type: does not use Assessment & Plan Assessment & Plan narrative: Right femoral neck fracture. Surgery in the next 12 hours period is NPO otherwise doing well will follow. Elevated blood pressure without hypertension. Blood pressure looks better today. May have been distress. Will follow. Hypoxia. Acute respiratory failure secondary to narcotics not completely resolved. Can be that she is not taking deep enough breath. I do not see anything significant will need to watch closely encourage deep breathing and incentive spirometer the. Will follow. No evidence of infection. No other changes. Anemia iron deficiency chronic stable. No change at this time. Reflux. Will continue on her usual PPI. 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 Doing well. Will follow. Depression. Chronic. Stable. No change right wrist pain. Will consider physical therapy as outpatient. Code status full DVT prophylaxis on Lovenox although held for surgery Disposition. Probably will need sniff. Will see how things go Quality VTE Deep Vein Thrombosis/Pulmonary Embolism Present on Admission: No
--- NOTE | 2020-11-22 13:43 | CM.DPC ---
DCP Continued: FUSION ANALYST student met with patient and Gabriel at bedside in the afternoon. Patient reported she is a little apprehensive about surgery that is scheduled for later today. Nursing confirmed patient will be going to have surgery 11/22/20. Anticipate therapy will see patient after surgery. PLAN: CM Team to continue to follow closely. JOEY Jesus MSW Student
[2020-11-22] MEDS: ACETAMINOPHEN 325 MG TABLET 650 MG PO (17:01)
[2020-11-22] MEDS: GABAPENTIN 300 MG CAPSULE PO (17:02)
--- NOTE | 2020-11-22 17:17 | PM.PREOP ---
Pre-operative Note COVID-19 COVID-19 status: Negative Result date/Date tested (Pos, Neg/Pending): 11/19/20 Interval Note History & Physical reviewed/Exam performed by Physician: Yes Changes to H&P: No
--- NOTE | 2020-11-22 17:31 | PC.NURSE ---
Addendum entered by Kristen Garay R.N. 11/22/20 22:28: Patient back from PACU around 2210. Placed on BIPAP when pt arrived. Drowsy, wakes to name loudly (d/t very hard of hearing) but falls back to sleep. Not following commands at this time. per RT pt on 60% FIO2, RR 14 but breathing 17. Drsg to Rt hip aquacell drsg CDI. Patient back up with Rt side hearing aid in place. Original Note: Patient down to surgery at 1630, kept Rt hearing aid in during that time.
[2020-11-22] MEDS: CEFAZOLIN 1 GM VIAL 2 GM IV (17:58)
--- NOTE | 2020-11-22 18:17 | SUR.OPER ---
Addendum entered by Yamileth Velazquez R.N. 11/22/20 18:25: Right Hearing Aid removed, placed in patients own Hearing aid container, given to PRACTICING MD ANESTHESIOLOGIST. No Left hearing aid present per patient. Original Note: Lateral on padded OR bed. Gel axillary roll. Arms secured on padded armboard with 2 pillows supporting top arm. Padded hip positioner braces x4 - anterior and posterior chest and pelvis. Additional gel pad used anterior pelvis. Gel pad under bottom leg from knee to foot and secured with tape over sheet. Stirrup Cane used during Sterile prep of Right leg prior to draping.
[2020-11-22] MEDS: BUPIVACAINE 0.5% (PF) VIAL 30 ML INJ (18:24)
--- NOTE | 2020-11-22 19:30 | PM.OP.1 ---
Operative Date/Time/Diagnoses Date of procedure: 11/22/20 Time of procedure: 19:30 Pre-op diagnosis: Right femoral neck fracture Post-op diagnosis: same Procedure & Clinicians Procedure: Right hip hemiarthroplasty Same procedure as scheduled: Yes Indications: The patient is an 80-year-old woman who sustained a fall with the above-noted fracture. She was therapeutically anticoagulated and has waited several days to allow this to reverse. She is now taken to the operating room for definitive management of the fracture with a hemiarthroplasty. The risks benefits and alternatives were discussed prior to surgery. Risks discussed included but were not limited to: Failure to improve, stiffness, infection, dislocation, leg-length discrepancy, bleeding, nerve damage, deep venous thrombosis, pulmonary embolism, stroke, myocardial infarction, permanent paralysis and . Surgeon: Bryce Beltran Concession Attendant: Yogesh Longo Operative Notes Findings: Displaced femoral neck fracture. Closure Type: primary Specimen(s): none sent Prosthetic devices, grafts, tissues, transplants, or devices: Implants used in this procedure were manufactured by the [employer] and included a Synergy cemented stem, size 13, there is a 51 mm tandem unipolar head with a +0 mm sleeve. A 12 mm distal cement centralizer was used as well as a plastic bone plug for the canal. Applied: implant(s) Estimated Blood Loss (mL): 150 Blood products transfused: none Procedure in detail: The patient was seen in the pre-operative area, where they identified the right hip as the operative site and this was marked with my initials. The patient received pre-operative antibiotics and was taken to the operating room and placed on the operative table in the left lateral decubitus position after satisfactory anesthesia. A marketing operations analyst out was performed. The right leg was prepared from the ankle to the iliac crest with ChloraPrep in the usual fashion and draped through sterile drapes. The hip was approached through an approximately 20 cm incision centered over the greater trochanter and curving gently posteriorly as it went proximally. This was carried sharply to the fascia juju, which was divided and retracted with a self-retaining retractor. The trochanteric bursa was excised with care being taken to avoid the sciatic nerve, which was identified and protected throughout the case. The short external rotators were incised and the capsulomuscular flap was raised and tagged for later repair. The femoral head was removed with a ?corkscrew?, and the femoral neck osteotomy performed approximately 15 mm above the lesser trochanter. Retractors were placed to expose the acetabulum and a trial femoral head placed to confirm the size of the ball. We then turned our attention to the femur. The canal was opened with a box cutting osteotome, followed by a T handled reamer and a lateralizing reamer. The broaches were used, sequentially enlarging until a good fit was obtained. A trial head and neck were then placed and the hip relocated and checked for leg length and stability. The patient was stable in the position of sleep, of squatting, and could be put through a range of motion with 45 degrees internal rotation without dislocation. At 90 degrees flexion, internal rotation to in excess of 70? was possible before dislocation. This was felt to be satisfactory and the appropriate components were opened, and the trials were removed. The canal was prepared by placing a distal cement plug. The pulsatile lavage was used followed by an epinephrine-soaked sponge for hemostasis. Cement was then retrograde injected and pressurized. The final stem was then impacted into the prepared femoral canal. Finally the femoral head was impacted onto the stem. The acetabulum was cleared of all material and the hip relocated one final time. The capsulomuscular flap was then repaired to the greater trochanter though an awl hole using the tag sutures. The short external rotators were repaired with a running 0 Vicryl. The fascia juju was closed with running and interrupted 0 Vicryl. The subcutaneous layer was closed with interrupted 3-0 Vicryl, and the skin with a running 3-0 V-Lock suture and Dermabond. An Aquacel Ag dressing was applied and the patient was taken to recovery having tolerated the procedure well. Post-operative Condition: stable Disposition: PACU Plan for aftercare: The patient will be maintained on posterior hip precautions. She will be restarted on her anticoagulant. She will be discharged to home or to a intermediate facility once she has become stable postoperatively.
--- NOTE | 2020-11-22 19:38 | DI.RAD.S_ITS ---
PROCEDURE: XR PELVIS 1-2V INDICATIONS: Post op hemiarthroplasty TECHNIQUE: 1 view of the lower pelvis acquired. COMPARISON: None. FINDINGS: Bones: Patient is status post right hip arthroplasty, with hardware components in expected positions. The hip joint appears congruent. The visualized bony structures appear intact. Soft tissues: Overlying postoperative changes are noted. No suspicious soft tissue densities. IMPRESSION: Expected appearance of right hip arthroplasty. Dictated by: Dax Medley M.D. on 11/22/2020 at 20:07 Approved by: Dax Medley M.D. on 11/22/2020 at 20:08
--- NOTE | 2020-11-22 19:55 | SUR.PHASEI ---
RR 8, [address] Templeton aware.
--- NOTE | 2020-11-22 20:20 | SUR.PHASEI ---
Dr. Templetonto bedside, pt still with RR 6-8, sats 95% on 10L simple mask. When I ask pt to squeeze my hand she shakes her head yes, but will not shake my hand. Pt turns to to me when I call her name. Dr. Templeton stated pt may need to go to ICU, coordinator PJ Noble informed.
--- NOTE | 2020-11-22 20:43 | SUR.PHASEI ---
RT called to assess pt for bipap, Dr. Templeton here at bedside, Dr. Beltran calling Stella Tello, Dr. Reyes to call ICU with orders. Awaiting ICU staff to call for report. 2042 pt placed on Bipap by RT, 02 60% rate at 12, pt tolerating mask sats still 95%, RR 12.
[2020-11-22] MEDS: LACTATED RINGERS 1,000 ML 42 ML IV (20:50)
--- NOTE | 2020-11-22 20:53 | SUR.PHASEI ---
Rate increased to 14 by RT.
--- NOTE | 2020-11-22 20:58 | SUR.PHASEI ---
Mouth care done, chap stick to lips prior to bipap placed.
--- NOTE | 2020-11-22 21:59 | SUR.PHASEI ---
Report called to PJ Peterson. Pt kept on monitor and placed on 10/L simple mask for transport back to room 228, RT called, placed pt back on bipap 60% 02 with a rate of 14. Pt left with Kristen in stable condition.
[2020-11-23] VITALS (19 sets, daily range): BP systolic 93–157; BP diastolic 50–81; PULSE 83–122; RESP 12–23; TEMP 31–36.8; O2SAT 88–98
--- NOTE | 2020-11-23 01:42 | PC.NURSE ---
Addendum entered by Nereyda Mendez R.N. 11/23/20 05:08: 0500- Patient awake and requests the Bipap to be removed. Placed on 3L cannula. Respiratory Therapy aware. Will monitor. Original Note: 0130- Patient remains on Bipap. Patient is arousable via sternal rub and able to answer questions. Patient denies pain. Continues to drift immediately off to sleep with snoring. Bipap left on, respiratory to manage. Will monitor.
[2020-11-23 05:10] LABS: Add Manual Diff / Slide Review NO; Basophils Absolute Auto 0 /uL (0-100); Basophils Percent Auto 0.2 % (0-2); Eosinophils Absolute Auto 0 /uL (0-450); Eosinophils Percent Auto 0.3 % (2-4); Hematocrit 37.7 % (36-46); Lymphocytes Absolute Auto 200 /uL (1100-4500); Lymphocytes Percent Auto 2.4 % (25-40); Mean Corpuscular HGB Conc 31.8 % (30-36); Mean Corpuscular Volume 84.7 fL (80-100); Monocytes Absolute Auto 200 /uL (0-900); Monocytes Percent Auto 2.4 % (3-14); Neutrophils Absolute Auto 8400 /uL (1500-7000); Neutrophils Percent Auto 94.7 % (50-75); Platelet Count 175 X10^3/uL (150-400); Red Blood Cell Count 4.45 X10^6/uL (4.0-5.2); Red Cell Distribution Width 14.8 % (11.6-14.8); White Blood Cell Count 8.8 X10^3/uL (4.5-11.0)
[2020-11-23 05:12] LABS: BUN Creatinine Ratio 23.5 (6-22); Blood Urea Nitrogen 12 mg/dL (7-17); Calcium 8.3 mg/dL (8.4-10.2); Carbon Dioxide 29 mmol/L (22-32); Chloride 105 mmol/L (98-107); Estimated Glomerular Filt Rate > 60.0 mL/min (>60); Glucose 151 mg/dL (80-110); HEMOLYSIS < 15 (0-50); Potassium 4.3 mmol/L (3.4-5.1); Sodium 138 mmol/L (137-145)
[2020-11-23 05:21] LABS: NT-proBNP (BNP-Adult 18+) 474 pg/mL (<450)
--- NOTE | 2020-11-23 07:00 | P.PN_ITS ---
Subjective Subjective Date Patient Seen: 11/23/20 Time Patient Seen: 07:02 Interval history: Patient doing well this morning status post her hip surgery. Needed BIPIP after her surgery, now on room air. Reports pain is controlled with medication, no nausea or vomiting. Dr. Beltran has restarted eliquis. Exam Vital Signs (past 8 hours): - 11/22/20 23:04 11/22/20 23:30 11/22/20 23:44 Temperature Pulse Rate 109 H 103 H Respiratory Rate 16 15 Blood Pressure 113/62 113/62 Pulse Oximetry 96 96 11/22/20 23:59 11/23/20 00:00 11/23/20 00:30 Temperature 97.2 F L Pulse Rate 100 H 100 H 100 H Respiratory Rate 14 15 13 Blood Pressure 98/62 98/62 Pulse Oximetry 97 97 97 11/23/20 00:31 11/23/20 01:00 11/23/20 01:11 Temperature 97.0 F L Pulse Rate 100 H 95 H 94 H Respiratory Rate 18 22 14 Blood Pressure 101/64 95/66 103/63 Pulse Oximetry 97 97 97 11/23/20 01:30 11/23/20 02:00 11/23/20 02:30 Temperature Pulse Rate 92 H 90 87 Respiratory Rate 15 23 12 Blood Pressure 98/60 Pulse Oximetry 97 97 98 11/23/20 03:00 11/23/20 05:16 Temperature 96.7 F L Pulse Rate 85 86 Respiratory Rate 14 18 Blood Pressure 93/62 109/63 Pulse Oximetry 98 96 Fraction of Inspired Oxygen 60 Oxygen Delivery Method BiPAP Oxygen Flow Rate 3 Narrative Exam Narrative: GENERAL: Sleeping soundly. HEENT: Head normocephalic/atraumatic. LUNGS: Clear to ausculation bilaterally, no wheezes, rhonchi or rales. CV: Normal S1 and S2 with regular rate and rhythm, no audible murmurs, rubs or gallops. ABDOMEN: Soft, non-tender, non-distended, no organomegaly. Positive bowel sounds. EXTREMITIES: Right hip with dressing in place, clean, dry and intact. NEURO: Cranial nerves II through XII grossly intact, no focal deficits. PSYCH: Sedated, oriented, pleasant. Objective Labs Result Diagrams: 11/23/20 04:58 11/23/20 04:58 Labs: Laboratory Results - last 24 hr 11/23/20 11/23/20 04:58 04:58 WBC 8.8 RBC 4.45 Hgb 12.0 Hct 37.7 MCV 84.7 MCH 27.0 MCHC 31.8 RDW 14.8 Plt Count 175 Neut % (Auto) 94.7 H D Lymph % (Auto) 2.4 L [place] % (Auto) 2.4 L Eos % (Auto) 0.3 L Baso % (Auto) 0.2 Neut # (Auto) 8400 H Lymph # (Auto) 200 L [place] # (Auto) 200 Eos # (Auto) 0 Baso # (Auto) 0 Sodium 138 Potassium 4.3 Chloride 105 Carbon Dioxide 29 BUN 12 Creatinine 0.51 L Estimated GFR > 60.0 BUN/Creatinine Ratio 23.5 H Glucose 151 H Calcium 8.3 L NT-Pro-B Natriuret Pep 474 H PFSH Medical History Anemia Bilateral arm fractures DVT (deep venous thrombosis) Factor 5 Leiden mutation, heterozygous Factor V Leiden GERD (gastroesophageal reflux disease) Hiatal hernia Migraine Rectocele Recurrent deep vein thrombosis (DVT) Surgical History History of cholecystectomy History of colonoscopy History of esophagogastroduodenoscopy (EGD) Hx of cholecystectomy Family History Father Cancer Brother Cancer Heart disease Social History marital status: household members: spouse occupational status: previously employed Smoking Status: Unknown if ever smoked alcohol intake: never substance use type: does not use Assessment & Plan Assessment & Plan narrative: 1. Right femoral neck fracture Plan: Dr. Beltran, orthopedic surgery consulting. Status post right hip hemiarthroplasty yesterday. Has been off eliquis since 11/19 in the am. Off lovenox bridge since Sunday pm. Hypercoagulable due to recent adenocarcinoma of the sigmoid colon and factor [address] Beltran has restarted eliquis. Continue pain control and muscle relaxants. PT today with d/c to SNF, likely tomorrow. 2. Acute hypoxic respiratory failure, secondary to narcotics, resolves with BIPAP/oxygen Plan: In ICU now, watching closely, using narcotics very cautiously for pain control. 3. Anemia iron deficiency, chronic, stable Plan: Will trend labs. 4. GERD, chronic Plan: Continue home omeprazole. 5. Adenocarcinoma, sigmoid colon fairly new Plan: Status post a low anterior resection of her colon cancer. Not a good candidate for chemotherapy. 6. Depression, chronic 6lan: Continue citalopram 20 mg p.o. q.day. 7. Wrist pain, right, acute, improving status post fall Plan: Supportive care with pain control and ice. Code: Full DVT prophylaxis: Eliquis COVID: Negative Quality VTE Deep Vein Thrombosis/Pulmonary Embolism Present on Admission: No
--- NOTE | 2020-11-23 07:32 | P.PN_ITS ---
Subjective Subjective Interval history: Patient has had difficulty with respiratory depression but appears to be breathing well on nasal cannula oxygen and is alert and asking questions. Exam Vital Signs (past 8 hours): - 11/22/20 23:44 11/22/20 23:59 11/23/20 00:00 Temperature 97.2 F L Pulse Rate 100 H 100 H Respiratory Rate 14 15 Blood Pressure 113/62 98/62 98/62 Pulse Oximetry 97 97 11/23/20 00:30 11/23/20 00:31 11/23/20 01:00 Temperature 97.0 F L Pulse Rate 100 H 100 H 95 H Respiratory Rate 13 18 22 Blood Pressure 101/64 95/66 Pulse Oximetry 97 97 97 11/23/20 01:11 11/23/20 01:30 11/23/20 02:00 Temperature Pulse Rate 94 H 92 H 90 Respiratory Rate 14 15 23 Blood Pressure 103/63 98/60 Pulse Oximetry 97 97 97 11/23/20 02:30 11/23/20 03:00 11/23/20 05:16 Temperature 96.7 F L Pulse Rate 87 85 86 Respiratory Rate 12 14 18 Blood Pressure 93/62 109/63 Pulse Oximetry 98 98 96 Fraction of Inspired Oxygen 60 Oxygen Delivery Method BiPAP Oxygen Flow Rate 3 Narrative Exam Narrative: Right hip wound is dressed with no drainage on the bandage. Leg length and rotation appeared appropriate. Calf is soft. Light touch and motion are intact in the right lower extremity. Objective Labs Result Diagrams: 11/23/20 04:58 11/23/20 04:58 Labs: Laboratory Results - last 24 hr 11/23/20 11/23/20 04:58 04:58 WBC 8.8 RBC 4.45 Hgb 12.0 Hct 37.7 MCV 84.7 MCH 27.0 MCHC 31.8 RDW 14.8 Plt Count 175 Neut % (Auto) 94.7 H D Lymph % (Auto) 2.4 L Gordon % (Auto) 2.4 L Eos % (Auto) 0.3 L Baso % (Auto) 0.2 Neut # (Auto) 8400 H Lymph # (Auto) 200 L Gordon # (Auto) 200 Eos # (Auto) 0 Baso # (Auto) 0 Sodium 138 Potassium 4.3 Chloride 105 Carbon Dioxide 29 BUN 12 Creatinine 0.51 L Estimated GFR > 60.0 BUN/Creatinine Ratio 23.5 H Glucose 151 H Calcium 8.3 L NT-Pro-B Natriuret Pep 474 H PFSH Medical History Anemia Bilateral arm fractures DVT (deep venous thrombosis) Factor 5 Leiden mutation, heterozygous Factor V Leiden GERD (gastroesophageal reflux disease) Hiatal hernia Migraine Rectocele Recurrent deep vein thrombosis (DVT) Surgical History History of cholecystectomy History of colonoscopy History of esophagogastroduodenoscopy (EGD) Hx of cholecystectomy Family History Father Cancer Brother Cancer Heart disease Social History marital status: household members: spouse occupational status: previously employed Smoking Status: Unknown if ever smoked alcohol intake: never substance use type: does not use Assessment & Plan Post-op Postoperative Procedures: Procedures Operation Date: 11/22/20 17:45 Actual Procedure Side Surgeon p Hip Hemiarthroplasty Right Bryce Beltran MD Postoperative day: 1 Postoperative status: doing well Postoperative status narrative: Stable postoperative day 1 status post right hip hemiarthroplasty for femoral neck fracture. Her breathing appears to be improving. Postoperative plan narrative: She may ambulate as tolerated with physical th erapy. Posterior hip precautions. Respiratory status is under the care of her primary care service. Likely transfer to long-term facility once her respiratory status is stable. Quality VTE Deep Vein Thrombosis/Pulmonary Embolism Present on Admission: No
--- NOTE | 2020-11-23 08:37 | CM.DPC ---
DCP continued: Received verbal referral from re: d/c need. Per provider, Dr. Coulter patient will most likely need SNF when medically stable. Patient is POD#1 from hip surgery. Therapy evaluations pending. OTOLOGIST met with patient this AM to provide her with SNF choice list. Patient in bed at time of visit and very [place]. Patient unable to find her earring aides. Patient's spouse out of the room for breakfast. OTOLOGIST left SNF list and notified patient that CM team would come back once spouse back. Patient aware and agreeable. P: Anticipate SNF at time of d/c. Dr. Coulter suspects patient will be ready tomorrow. JOEY Jesus
[2020-11-23] MEDS: APIXABAN 5 MG TABLET PO ×2 (08:55→20:00)
[2020-11-23] MEDS: DOCUSATE 100 MG CAPSULE PO ×2 (08:55→20:00)
[2020-11-23] MEDS: CITALOPRAM 10 MG TABLET 20 MG PO (08:55)
[2020-11-23] MEDS: ACETAMINOPHEN 325 MG TABLET 650 MG PO ×3 (08:55→20:00)
--- NOTE | 2020-11-23 09:01 | CM.DPNOTE ---
Ana from PT called and said pt. should be SNF bound and to include OT. I will relay this information to [place]. Beth Pettit CM Asst.
--- NOTE | 2020-11-23 11:10 | PT.IIE ---
Current Diagnoses Fracture of unspecified part of neck of right femur, initial encounter for closed fracture (11/19/20) Surgery Performed Operation Date: 11/22/20 17:45 Actual Procedures p Hip Hemiarthroplasty(Right) - Bryce Beltran MD Medical History (Last Reviewed 11/22/20 @ 07:58 by Yogesh Longo PA-C) Anemia Bilateral arm fractures DVT (deep venous thrombosis) Factor 5 Leiden mutation, heterozygous Factor V Leiden GERD (gastroesophageal reflux disease) Hiatal hernia Migraine Rectocele Recurrent deep vein thrombosis (DVT) Physical Therapy Inpatient Evaluation/Re-Eval M1 PT/OT-IP Prior Functional Status Start: 11/23/20 08:54 Freq: NEEDED Status: Active Protocol: Document 11/23/20 11:10 AW (Rec: 11/23/20 11:39 AW [id number]) Medical Review Prior Functional Status Medical History Reviewed Yes Communication Pt is able to make her needs known. 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 Mobility and Gait Pt was more active before COVID pandemic. Lately, she has been using a SPC for household and parking lot distances. She is able to complete a [employer] shopping trip if holding on to the cart . 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 Social History Household Members spouse Living Arrangements House Number of Floors (Floors) One Floor Number of Stairs To Enter/Railing? 2 [place] Home Environment Standard Height Toilet,Walk in Shower Home Equipment Front Wheel Walker,Four Wheel Walker,Straight Cane,Grab Bars Near Toilet,Grab Bars In Shower Additional Social History Comment Pt has a grab bar in front of her toilet and a toilet safety frame. She lives with her , Gabriel, who is available and able to assist as needed. M2 PT-IP Current Condition Start: 11/23/20 08:54 Freq: NEEDED Status: Active Protocol: Document 11/23/20 11:10 AW (Rec: 11/23/20 11:39 AW [id number]) Physical Therapy Current Condition Current Condition Evaluation Date 11/23/20 Treatment Diagnosis R femoral neck fx s/p hemiarthroplasty; difficulty in walking Onset Date 11/19/20 Precautions Posterior Hip Precautions No Hip Flexion > 90 degrees,No Hip Internal Rotation,No Hip Adduction Weight Bearing Status Weight Bearing Status Weight Bear as Tolerated M3 PT-IP Subjective Start: 11/23/20 08:54 Freq: NEEDED Status: Active Protocol: Document 11/23/20 11:10 AW (Rec: 11/23/20 11:39 AW [id number]) Subjective Physical Therapy Visit Type Type Initial Evaluation Visit Start Time 10:21 Visit Stop Time 11:10 Total Visit Minutes 49 Physical Therapy Visit Comments Patient Comments Pt is willing to participate with PT Patient Goals Pt understands she will need SNF rehab prior to Therapy Pain Assessment Pain When Pain Assessed During Mobility Pain Present Pain Present Pain Reported Location Right Hip Scale Used not quantified Pain Behaviors Calling Out,Guarding,Wincing Pain Management Techniques Re-positioning,Timing of Activity with Medications M4 PT-IP Mobility and Gait Start: 11/23/20 08:54 Freq: NEEDED Status: Active Protocol: Document 11/23/20 11:10 AW (Rec: 11/23/20 11:39 AW [id number]) PT-Bed Mobility Assessment Supine to Sit Supine to Sit Maximum Assistance,1 Person Assistance,Head of Bed Elevated,Bedrails Scooting Scooting to Edge of Bed Maximum Assistance PT-Transfer Assessment Sit to and From Stand Sit to and from Stand Maximum Assistance,1 Person Assistance,Use of Upper Extremities Equipment Transfer Assistive Device Gait Belt,Front Wheeled Walker Orthotic/Prosthetic Devices or Brace: No Transfers Transfer Destination Chair Transfer Technique Stand Step Pivot Transfer Ability Level of Assist Maximum Assistance,1 Person Assistance,2 Person Assistance ,Use of Upper Extremities Comments Mobility Comments Pt was sitting up in bed as PT arrived. BP was 129/58 HR 94. Educated pt on posterior hip precautions and weightbearing status. Pt was given the choice of exiting the bed to right or left; she chose to go to the left as she does at home. With max assist and HOB elevated, pt completed supine to sit in stages. She used bed rails and bed cane to right herself and then pulled on the walker frame as PT stabilized to help pull herself toward EOB. Once her feet were on the floor, pt stood from the bed with max assist and was able to stand with equal weightbearing and min assist. Pt needed max assist x 1-2 and max cues for weightshifting to transfer to bedside chair set up on her left side. Waffle cushion was placed for increased height and for skin protection. Once in position, she was able to reach the chair arms and lower herself safely with therapist assist. Pt was able to scoot herself back on the chair with good attention to precautions. BP immediately post transfers was 91/52 HR 110. Pt was SOB and SpO2 was 84-90% on room air. RN arrived to apply and titrate O2 and pt recovered SpO2 to 92% within one minute. BP recovered to 115/62 HR 96. Gait Assessment Comments Gait Comments Steps taken during transfer only. Pt slides her right foot and requires max cues and assist to advance her left foot. Heavy BUE weightbearing with no complaint of wrist pain. Stair Climbing Assessment Comments Stair Climbing Comments Not assessed. PT-Balance Assessment Sitting Balance and Reactions Static Sitting Balance Ability Good Dynamic Sitting Balance Ability Fair Standing Balance and Reactions Static Standing Balance Ability Poor Dynamic Standing Balance Ability Poor Device Used FWW Balance Tests Single Limb Standing unable M5 PT-IP Objective Assessments Start: 11/23/20 08:54 Freq: NEEDED Status: Active Protocol: Document 11/23/20 11:10 AW (Rec: 11/23/20 11:39 AW [id number]) Orientation Orientation/Cognition Level of Alertness Alert Orientation Name,Month,Place,Situation Language Function Ability Hard of Hearing Safety Awareness Understands Safety Issues Memory Description No Deficits Noted Gross Range of Motion Lower Extremity ROM Assessment Right Impaired Strength Lower Extremity Strength Assessment Bilaterally Impaired Hip L 3/5; R 3-/5 Knee B 3+/5 Ankle B 4/5 Sensation Assessment Sensation Gross Sensation WNL Muscle Tone Muscle Tone WNL Yes M6 PT-IP Treatment Start: 11/23/20 08:54 Freq: NEEDED Status: Active Protocol: Document 11/23/20 11:10 AW (Rec: 11/23/20 11:39 AW [id number]) Physical Therapy Treatment Exercises Exercises Ankle Pumps,Quad Sets,Heel Slides Education Education Provided Precautions,Weight Bearing Status,Post-Op Packet,Safety Other Treatments Other Treatment Performed Educated pt on PT plan of care and to call for all mobility- related needs. Pt demonstrated good understanding of hip precautions but did require occasional reminders to limit hip flexion in sitting. M7 PT-IP Assessment and Plan Start: 11/23/20 08:54 Freq: NEEDED Status: Active Protocol: Document 11/23/20 11:10 AW (Rec: 11/23/20 11:39 AW [id number]) PT Summary Assessment and Plan Potential Rehabilitation Potential Good Status of Condition at Evaluation Evolving Summary Impairments Pain,ROM,Strength,Balance,Bed Mobility,Transfers,Gait, Activity Tolerance Assessment Summary Cheryl is an 86 yo woman seen for PT evaluation on POD1 following R hip hemiarthroplasty to treat femoral neck fracture. PMH includes DVT, PE, colon resection secondary to cancer. She is modified independent with mobililty at baseline using SPC. On evaluation, pt required max assist x 1-2 for all mobility and was severely fatigued after trasnfer. She will require SNF rehab to improve strength and mobility independence. Goals Bed Mobility Goal Minimal Assistance Transfer Goal Minimal Assistance,Front Wheeled Walker Gait Goal Minimal Assistance,Front Wheel Walker Gait Distance 25 Other Goals - improve ambulation to 25 feet SBA with FWW Days to Meet Goals 10 Frequency of Treatment Frequency Of Treatment Twice a Day Treatment Plan Physical Therapy Treatment Plan Bed Mobility Training,Transfer Training,Gait Training, Therapeutic Exercise,Balance Retraining,Post Op Education, Discharge Planning,Hot or Cold Pack,Neuromuscular Re-ed Other Recommendations and Next Treatment review precautions; standing Focus tolerance; transfers Precautions Posterior Hip Precautions No Hip Flexion > 90 degrees,No Hip Internal Rotation,No Hip Adduction Other Precautions WBAT RLE Recommendations To Nursing Amount of Assist Needed 2 Person Assist,3 or More Person Assist Discharge Recommendations PT Discharge Recommendations SNF Rehab Transportation Needs at Discharge Wheelchair/Cabulance
--- NOTE | 2020-11-23 14:46 | PC.NURSE ---
pt tolerated PT x 2 well this shift - Tylenol given routinely for pain - no other narcotics, gerber patent and taking diet well - denies nausea - passing flatus, using call light appropriately. aquacell dressing cdi- plan for transfer to [facility] potentially tomorrow. Pt was able to come off bipap by 0800 this am to 2l nc
--- NOTE | 2020-11-23 16:13 | CM.DPC ---
DCP Continued: [employer] DRIVER Student met with patient and Rob this morning to review SNF options both agreed on [facility] and [facility] as a backup plan. Explained the need for COVID vaccine cards are essential. said they have copies at home and will bring them to the hospital. [facility] accepted placement both patient and are in agreement with D/C to SNF. Faxed COVID cards to October at [facility] and called to inform her of fax and anticipated D/C tomorrow. PASRR completed. PLAN: Anticipate D/C to [facility] when medically stable. CM Team to continue to follow. JOEY Jesus MSW Student
--- NOTE | 2020-11-23 16:30 | PT.IPTN ---
Current Diagnoses Fracture of unspecified part of neck of right femur, initial encounter for closed fracture (11/19/20) Surgery Performed Operation Date: 11/22/20 17:45 Actual Procedures p Hip Hemiarthroplasty(Right) - Bryce Beltran MD Physical Therapy Treatment Note M2 PT-IP Current Condition Start: 11/23/20 08:54 Freq: NEEDED Status: Active Protocol: Document 11/23/20 11:10 AW (Rec: 11/23/20 11:39 AW [id number]) Physical Therapy Current Condition Current Condition Evaluation Date 11/23/20 Treatment Diagnosis R femoral neck fx s/p hemiarthroplasty; difficulty in walking Onset Date 11/19/20 Precautions Posterior Hip Precautions No Hip Flexion > 90 degrees,No Hip Internal Rotation,No Hip Adduction Weight Bearing Status Weight Bearing Status Weight Bear as Tolerated M3 PT-IP Subjective Start: 11/23/20 08:54 Freq: NEEDED Status: Active Protocol: Document 11/23/20 16:20 HH (Rec: 11/23/20 16:30 HH [id number]) Subjective Physical Therapy Visit Type Type Treatment Note Visit Start Time 14:00 Visit Stop Time 14:26 Total Visit Minutes 26 Notes PJ Padilla assisted this session Physical Therapy Visit Comments Patient Comments Pt is willing to participate with PT and stated she wants to go back to bed. Patient Goals Pt understands she will need SNF rehab prior to Therapy Pain Assessment Pain When Pain Assessed During Mobility Pain Present Pain Present Pain Reported Location Right Hip Scale Used not quantified Pain Behaviors Calling Out,Guarding,Wincing Pain Management Techniques Re-positioning,Timing of Activity with Medications M4 PT-IP Mobility and Gait Start: 11/23/20 08:54 Freq: NEEDED Status: Active Protocol: Document 11/23/20 16:20 HH (Rec: 11/23/20 16:30 HH [id number]) PT-Transfer Assessment Sit to and From Stand Sit to and from Stand Maximum Assistance,1 Person Assistance,Use of Upper Extremities Equipment Transfer Assistive Device Gait Belt,Front Wheeled Walker Orthotic/Prosthetic Devices or Brace: No Transfers Transfer Destination Chair Transfer Technique Stand Step Pivot Transfer Ability Level of Assist Maximum Assistance,1 Person Assistance,2 Person Assistance ,Use of Upper Extremities Comments Mobility Comments Pt was up in chair upon PT arrival. PJ Padilla assisted this session. I initially positioned her chair with the bed on her L side and facing the head of bed. She needed max A x 2 to stand up and primarily pushed off through FWW. She then needed min cues for walker and steps sequence to step pivot towards her L side. Pt only able to minimally clear her feet off the floor. She then sat down with max A x 2 for descend control followed by max A x 2 for sit to supine. Placed SCD on LEs and crushion under her buttock. SCD activated and bed alarm placed within reach. Handed pt off to RN. Gait Assessment Comments Gait Comments Steps taken during transfer only. Pt slides her right foot and requires max cues and assist to advance her left foot. Heavy BUE weightbearing with no complaint of wrist pain. Stair Climbing Assessment Comments Stair Climbing Comments Not assessed. PT-Balance Assessment Sitting Balance and Reactions Static Sitting Balance Ability Good Dynamic Sitting Balance Ability Fair Standing Balance and Reactions Static Standing Balance Ability Poor Dynamic Standing Balance Ability Poor Device Used FWW M5 PT-IP Objective Assessments Start: 11/23/20 08:54 Freq: NEEDED Status: Active Protocol: Document 11/23/20 11:10 AW (Rec: 11/23/20 11:39 AW [id number]) Orientation Orientation/Cognition Level of Alertness Alert Orientation Name,Month,Place,Situation Language Function Ability Hard of Hearing Safety Awareness Understands Safety Issues Memory Description No Deficits Noted Gross Range of Motion Lower Extremity ROM Assessment Right Impaired Strength Lower Extremity Strength Assessment Bilaterally Impaired Hip L 3/5; R 3-/5 Knee B 3+/5 Ankle B 4/5 Sensation Assessment Sensation Gross Sensation WNL Muscle Tone Muscle Tone WNL Yes M6 PT-IP Treatment Start: 11/23/20 08:54 Freq: NEEDED Status: Active Protocol: Document 11/23/20 16:20 HH (Rec: 11/23/20 16:30 HH [id number]) Physical Therapy Treatment Exercises Exercises Ankle Pumps,Quad Sets,Heel Slides Education Education Provided Precautions,Weight Bearing Status,Post-Op Packet,Safety Other Treatments Other Treatment Performed reviewed quad sets with pt. M7 PT-IP Assessment and Plan Start: 11/23/20 08:54 Freq: NEEDED Status: Active Protocol: Document 11/23/20 16:20 HH (Rec: 11/23/20 16:30 HH [id number]) PT Summary Assessment and Plan Potential Rehabilitation Potential Good Status of Condition at Evaluation Evolving Summary Impairments Pain,ROM,Strength,Balance,Bed Mobility,Transfers,Gait, Activity Tolerance Assessment Summary Pt did okay this PM. Able to transfer from chair to bed with max A x 2 and cues for walker and step sequence. She is definitely needs extensive care so SNF will be an ideal option as this posistion. Goals Bed Mobility Goal Minimal Assistance Transfer Goal Minimal Assistance,Front Wheeled Walker Gait Goal Minimal Assistance,Front Wheel Walker Gait Distance 25 Other Goals - improve ambulation to 25 feet SBA with FWW Days to Meet Goals 10 Frequency of Treatment Frequency Of Treatment Twice a Day Treatment Plan Physical Therapy Treatment Plan Bed Mobility Training,Transfer Training,Gait Training, Therapeutic Exercise,Balance Retraining,Post Op Education, Discharge Planning,Hot or Cold Pack,Neuromuscular Re-ed Other Recommendations and Next Treatment review precautions; standing Focus tolerance; transfers Precautions Posterior Hip Precautions No Hip Flexion > 90 degrees,No Hip Internal Rotation,No Hip Adduction Other Precautions WBAT RLE Recommendations To Nursing Amount of Assist Needed 2 Person Assist,3 or More Person Assist Discharge Recommendations PT Discharge Recommendations SNF Rehab Transportation Needs at Discharge Wheelchair/Cabulance
--- NOTE | 2020-11-23 17:14 | PC.NURSE ---
Addendum entered by Sylvia Lim R.N. 11/23/20 20:04: Pt having uneventful evening. Denies any discomfort. Tele showing NSR per ICU staff. DYAN PICC intact/patent. Call light w/in reach, pt calls appropriately for needs. Continue w/plan of care. Original Note: Pt visiting w/. Denies any discomfort @ this time Lungs clear, SpO2 95% RA Tele shows NSR per ICU staff. Dsg to surgical hip CDI [place] cath patent clear yellow urine. Call light w/in reach, pt calls appropriately for needs.
[2020-11-24 05:00] VITALS: BP 97/59; PULSE 92; RESP 16; TEMP 36.9; O2SAT 95
--- NOTE | 2020-11-24 05:31 | P.DS_ITS ---
History of Present Illness History of Present Illness Date Patient Seen: 11/24/20 Time Patient Seen: 05:31 Chief complaint: Hip Fracture Narrative: This is an 80-year-old female admitted from the ED status post a right femoral neck fracture. Patient tripped while going down 2 steps, was unable to get up, so called EMS. Denies loss of consciousness. No chest pain or shortness of breath. No numbness or tingling. No dizziness, confusion, or vision changes. She is on Eliquis for prior/recent DVT/PE. Vital signs upon admission to the ED included temperature of 98.5?, pulse 86 respirations 16 blood pressure 130/89, O2 saturation 94% on room air. While in the emergency department, patient had hypoxia and tachycardia and was given a small dose of Narcan which improved her hypoxia and elevated her end-tidal CO2 but she continued to be symptomatic. ABG showed respiratory acidosis. She was placed on BiPAP and given 1 unit of packed red blood cells. Thereafter, her mentation improved but tachycardia was persistent. CT angiogram ruled out but new PE and resolution of old PE. No acute changes were noted on chest x-ray or CT. Hip x-ray showed that hematoma was not enlarging. Upon arriving to the ICU, she has received 1 dose morphine which have seemed to help her muscle spasms. Discharge Providers Provider Date of admission: 11/19/20 16:59 Discharge Date: 11/24/20 Primary care physician: Verenice Coulter MD Consults: 11/19/20 19:12 Consult to Discharge Planning Routine Comment: Consult to Physical Therapy Evaluate & Treat Comment: Physician Instructions: Evaluate and Treat 11/19/20 20:32 Consult After Hours PICC Line RN Routine Comment: 11/19/20 20:54 Consult to Orthopedic Surgery Routine Comment: Consulting Provider: Bryce Beltran Reason for consultation: R femoral neck fracture Has provider been notified: Yes 11/22/20 22:02 Consult to Discharge Planning Routine Comment: Consult to Physical Therapy Evaluate & Treat Comment: Physician Instructions: post op AUGIE protocol Consult to Respiratory Therapy Evaluate & Treat Comment: Physician Instructions: Evaluate and treat Discharge provider: Verenice Coulter MD Summary Hospital Course Discharge Diagnosis: 1. Right femoral neck fracture, status post right hip hemiarthroplasty by Dr. Beltran, 11/22/20, no complications 2. Acute hypoxic respiratory failure, secondary to narcotics, resolved with BIPAP/oxygen 3. Anemia iron deficiency, chronic, stable 4. GERD, chronic 5. Adenocarcinoma, sigmoid colon, recent, status post low anterior resection of her colon cancer. 6. Depression, chronic 7. Wrist pain, right, acute, negative for fracture. Hospital Course: Patient had unremarkable hospital course. She was discontinued from her Eliquis upon admission and on hospital day 3, she underwent partial right hip hemiarthroplasty by Dr. Beltran. Bleeding was minimal and she was restarted on home Eliquis on postoperative day 0. She did receive prophylactic packed red blood cells in the ED, not due to current anemia, but in the setting of hypoxia and recent iron deficiency anemia that has been severe enought to require IV iron. Hypoxia thought to be narcotic induced and she did receive BiPAP support on her 1st night. Postoperatively, she was also placed on BiPAP after anesthesia. Otherwise, she has had supplemental oxygen as needed. Pain has been controlled with medications. On day of discharge she is afebrile with stable vital signs throughout. She is compliant with physical therapy and will be discharged to SNF. Time spent on Discharge and Coordination of post-hospital care: 35 minutes Status at Discharge Cognitive/behavioral status at discharge: at baseline, oriented Functional status at discharge: uses cane/walker Overall status at discharge: patient is progressing back to baseline Exam Vital Signs (past 8 hours): Fraction of Inspired Oxygen 60 Oxygen Delivery Method Room Air Oxygen Flow Rate 0 Narrative Exam Narrative: GENERAL: Alert and oriented, no acute distress. HEENT: Head normocephalic/atraumatic. LUNGS: Clear to ausculation bilaterally, no wheezes, rhonchi or rales. CV: Normal S1 and S2 with regular rate and rhythm, no audible murmurs, rubs or gallops. ABDOMEN: Soft, non-tender, non-distended, no organomegaly. Positive bowel sounds. EXTREMITIES: Right hip with dressing in place, clean, dry and intact. NEURO: Cranial nerves II through XII grossly intact, no focal deficits. PSYCH: Sedated, oriented, pleasant. Objective Labs Result Diagrams: 11/24/20 06:00 11/24/20 06:00 Labs: Laboratory Results - last 24 hr 11/19/20 14:10 Crossmatch See Detail [facility] Medical History Anemia Bilateral arm fractures DVT (deep venous thrombosis) Factor 5 Leiden mutation, heterozygous Factor V Leiden GERD (gastroesophageal reflux disease) Hiatal hernia Migraine Rectocele Recurrent deep vein thrombosis (DVT) Surgical History History of cholecystectomy History of colonoscopy History of esophagogastroduodenoscopy (EGD) Hx of cholecystectomy Family History Father Cancer Brother Cancer Heart disease Social History marital status: household members: spouse occupational status: previously employed Smoking Status: Unknown if ever smoked alcohol intake: never substance use type: does not use Discharge Plan Discharge Plan Patient Disposition: SNF Transfer to: [facility] Discharge orders & Medications Prescriptions: New oxycodone 5 mg Tablet 5 - 10 mg PO Q4-5H PRN (Reason: Pain, Severe (7-10)) Qty: 90 RF: 0 polyethylene glycol 3350 17 gram Powder In Packet 17 gm PO DAILY PRN (Reason: Constipation) Qty: 30 RF: 3 Continued citalopram 20 mg tablet 20 mg PO DAILY RF: 0 omeprazole 20 mg capsule,delayed release(DR/EC) 20 mg PO DAILY RF: 0 acetaminophen 500 mg Capsule 500 mg PO QID PRN (Reason: Pain (Scale Score 1-3)) RF: 0 Eliquis 5 mg Tablet 5 mg PO BID RF: 0 Follow up/Referrals: Verenice Coulter MD [Primary Care Provider] - Diet/Activity/Treatments Diet: Diet as Tolerated Activity: Advance per PT. With 4 WW Oxygen: supplemental oxygen as needed to keep O2 sats > 88% Skin/Wound/Dressing Care Dressing: Per orthopedic surgeon. [facility] Reason for rehabilitation: Post-operative therapy Rehab type: Physical therapy Discharge Data Primary Care Provider: Verenice Coulter VTE Deep Vein Thrombosis/Pulmonary Embolism Present on Admission: No
[2020-11-24] MEDS: PANTOPRAZOLE DR 20 MG TABLET PO (05:35)
[2020-11-24 06:17] LABS: Add Manual Diff / Slide Review NO; Basophils Absolute Auto 100 /uL (0-100); Basophils Percent Auto 0.7 % (0-2); Eosinophils Absolute Auto 500 /uL (0-450); Eosinophils Percent Auto 5.2 % (2-4); Hematocrit 32.6 % (36-46); Hemoglobin 10.5 g/dL (12.0-16.0); Lymphocytes Absolute Auto 900 /uL (1100-4500); Lymphocytes Percent Auto 10.5 % (25-40); Mean Corpuscular HGB Conc 32.3 % (30-36); Mean Corpuscular Hemoglobin 27.1 PG (26-34); Monocytes Absolute Auto 600 /uL (0-900); Monocytes Percent Auto 6.4 % (3-14); Neutrophils Absolute Auto 6700 /uL (1500-7000); Neutrophils Percent Auto 77.2 % (50-75); Platelet Count 202 X10^3/uL (150-400); Red Blood Cell Count 3.88 X10^6/uL (4.0-5.2); Red Cell Distribution Width 14.7 % (11.6-14.8); White Blood Cell Count 8.7 X10^3/uL (4.5-11.0)
[2020-11-24 06:29] LABS: BUN Creatinine Ratio 46.7 (6-22); Blood Urea Nitrogen 28 mg/dL (7-17); Carbon Dioxide 30 mmol/L (22-32); Chloride 103 mmol/L (98-107); Estimated Glomerular Filt Rate > 60.0 mL/min (>60); Glucose 121 mg/dL (80-110); HEMOLYSIS < 15 (0-50); Potassium 3.7 mmol/L (3.4-5.1); Sodium 136 mmol/L (137-145)
[2020-11-24 06:38] LABS: NT-proBNP (BNP-Adult 18+) 339 pg/mL (<450)
--- NOTE | 2020-11-24 07:18 | PM.PNPO.1 ---
Subjective Subjective Date Patient Seen: 11/24/20 Time Patient Seen: 07:18 Interval history: Patient states she is doing well overall and is in no discomfort at rest. Patient states that her pain is exacerbated with movement. At this time she denies fever, chills, nausea, chest pain, or shortness of breath. Patient reports good sensation throughout the bilateral lower extremities. Exam Vital Signs (past 8 hours): - 11/24/20 05:00 Temperature 98.4 F Pulse Rate 92 H Respiratory Rate 16 Blood Pressure 97/59 L Pulse Oximetry 95 Fraction of Inspired Oxygen 60 Oxygen Delivery Method Room Air Oxygen Flow Rate 0 Narrative Exam Narrative: Pleasant 80-year-old female postop day 2 status post right hemiarthroplasty. Patient is resting comfortably in bed, is in no acute distress, is alert and oriented x3. Skin is warm and dry, and the skin surrounding the incision site is free of erythema, warmth, induration, or discharge. Aquacel dressing over the incision site is clean, dry, and intact. Good sensation appreciated throughout the bilateral lower extremities to light touch. Tenderness to palpation appreciated at the anterolateral proximal right hip. Calves are soft and nontender, negative Homans sign. Ankle dorsiflexion, plantar flexion, eversion, inversion performed bilaterally without difficulty or discomfort. DP pulses palpated bilaterally. No other signs of DVT appreciated. Const General: cooperative, healthy appearing and comfortable Resp Effort & Inspection: normal respiratory effort and able to speak in complete sentences Skin General: no rashes or lesions noted Objective Labs Result Diagrams: 11/24/20 06:00 11/24/20 06:00 Labs: Laboratory Results - last 24 hr 11/19/20 11/24/20 11/24/20 14:10 06:00 06:00 WBC 8.7 RBC 3.88 L Hgb 10.5 L Hct 32.6 L MCV 84.0 MCH 27.1 MCHC 32.3 RDW 14.7 Plt Count 202 Neut % (Auto) 77.2 H Lymph % (Auto) 10.5 L [place] % (Auto) 6.4 Eos % (Auto) 5.2 H Baso % (Auto) 0.7 Neut # (Auto) 6700 Lymph # (Auto) 900 L [place] # (Auto) 600 Eos # (Auto) 500 H Baso # (Auto) 100 Sodium 136 L Potassium 3.7 Chloride 103 Carbon Dioxide 30 BUN 28 H Creatinine 0.60 Estimated GFR > 60.0 BUN/Creatinine Ratio 46.7 H Glucose 121 H Calcium 8.0 L NT-Pro-B Natriuret Pep 339 Crossmatch See Detail PFSH Medical History Anemia Bilateral arm fractures DVT (deep venous thrombosis) Factor 5 Leiden mutation, heterozygous Factor V Leiden GERD (gastroesophageal reflux disease) Hiatal hernia Migraine Rectocele Recurrent deep vein thrombosis (DVT) Surgical History History of cholecystectomy History of colonoscopy History of esophagogastroduodenoscopy (EGD) Hx of cholecystectomy Family History Father Cancer Brother Cancer Heart disease Social History marital status: household members: spouse occupational status: previously employed Smoking Status: Unknown if ever smoked alcohol intake: never substance use type: does not use Assessment & Plan Post-op Postoperative Procedures: Procedures Operation Date: 11/22/20 17:45 Actual Procedure Side Surgeon p Hip Hemiarthroplasty Right Bryce Beltran MD Postoperative day: 2 Postoperative status: doing well Postoperative plan: ambulate Postoperative plan narrative: Patient is to continue working on ambulation with the assistance of front wheeled walker with physical therapy. Current pain management regimen is to be continued as it is adequately controlled the patient's pain level at this time. Patient is to remain weight-bearing as tolerated, posterior hip precautions. Patient likely to be transferred to correction facility today or tomorrow. Quality VTE Deep Vein Thrombosis/Pulmonary Embolism Present on Admission: No
--- NOTE | 2020-11-24 08:51 | CM.DPNOTE ---
Addendum entered by Beth Pettit 11/24/20 11:02: Faxed Covid result to and received fax confirmation. Beth Pettit CM Asst. Addendum entered by Beth Pettit 11/24/20 09:19: [facility] called at 0915 to let me know 1100 transport with [facility]; RN report is with Verenice [phone]. I will let Rik RN know this information. [facility] and covid 19 vaccine card faxed and fax confirm. received. Beth Pettit CM Asst. Original Note: Faxed SNF order to [facility] at , fax confirmation received. Beth Pettit CM Asst.
[2020-11-24 09:00] VITALS: BP 96/78; PULSE 106; RESP 18; TEMP 36.9; O2SAT 92
[2020-11-24] MEDS: CITALOPRAM 10 MG TABLET 20 MG PO (09:29)
[2020-11-24] MEDS: DOCUSATE 100 MG CAPSULE PO (09:29)
[2020-11-24] MEDS: ACETAMINOPHEN 325 MG TABLET 650 MG PO (09:30)
[2020-11-24] MEDS: APIXABAN 5 MG TABLET PO (09:30)
[2020-11-24] MEDS: polyethylene glycoL 3350 17 GM POWD.PACK PO (09:57)
[2020-11-24 10:30] LABS: COVID19 - ADMIT (NP swab/PCR) Negative (Negative)
--- NOTE | 2020-11-24 11:16 | PC.NURSE ---
Addendum entered by Tommy Marinelli R.N. 11/24/20 11:19: Paper prescription for Oxycodone sent to [facility] to fill. Original Note: Safe hand off to Verenice RN at [facility]. Report called to Verenice at 10:30am. Patient left facility with all belongings via personal transport from facility.
--- NOTE | 2020-11-24 11:47 | CM.DPC ---
DCP/continued: Reviewed chart. Order obtained for patient to d/c to SNF today. Placed call to accepting SNF/[facility] spoke with [facility]. They are aware and agreeable to accept. Met with patient and spouse to confirm plan. All aware and agreeable. RN made aware that patient scheduled to be picked up at approximately 11:00AM. P: [facility] today. JOEY Jesus
--- NOTE | 2020-11-24 11:57 | PT-IP ANOTE ---
attempted to see pt at 11am but pt is being transferred to [facility] at the moment.
== END 2020-11-24 11:31 | DRG 521 ==
LOC: ED 16:39 → AC 17:00 → ICU 17:40 → AC 11-23 14:53
PROVIDERS: Orthopaedic Surgery; Admitting Provider Student in an Organized Health Care Education/Training Program; Emergency Provider Emergency Medicine; PCP Student in an Organized Health Care Education/Training Program; Referring Provider Emergency Medicine; Visit Provider Student in an Organized Health Care Education/Training Program
PROC: 0SRR0JZ Replacement of Right Hip Joint, Femoral Surface with Synthetic Substitute, Open Approach (ICD-10-PCS; CPT 27125; principal; 2020-11-22 17:45)
DX: S72.001A Fracture of unspecified part of neck of right femur, initial encounter for closed fracture (principal); J96.01 Acute respiratory failure with hypoxia; D68.51 Activated protein C resistance; W01.0XXA Fall on same level from slipping, tripping and stumbling without subsequent striking against object, initial encounter; K21.9 Gastro-esophageal reflux disease without esophagitis; F32.9 Major depressive disorder, single episode, unspecified; F41.9 Anxiety disorder, unspecified; D50.9 Iron deficiency anemia, unspecified; M25.531 Pain in right wrist; Z86.711 Personal history of pulmonary embolism; Z79.01 Long term (current) use of anticoagulants; Z20.822 Contact with and (suspected) exposure to COVID-19; Z85.038 Personal history of other malignant neoplasm of large intestine
CPT/HCPCS: 36415; 36430; 36569; 36592; 36600; 51702; 71045; 71275; 72170; 73110; 73502; 74177; 80048; 80053; 81001; 82805; 83735; 83880; 85025; 85610; 86850; 86900; 86901; 87635; 87797; 93005; 93010; 94660; 94762; 96361; 96374; 96375; 97162; 97530; 99285; 99291; C1776; C9803; P9016; J0690; J1100; J1170; J1642; J1650; J2270; J2274; J2310; J2405; J2704; Q9967

== ENCOUNTER 2021-03-05 12:19 | Emergency (ER) | payer MEDICARE, OTHER, SELFPAY ==
[2020-11-19 19:06] VITALS: BMI 31.8
[2020-11-22 23:44] VITALS: PULSE 101
[2020-11-23 04:37] VITALS: RESP 15; O2SAT 98
[2021-03-05] VITALS (13 sets, daily range): BP systolic 131–155; BP diastolic 56–73; PULSE 75–80; RESP 12–24; TEMP 36.4; O2SAT 94–97
--- NOTE | 2021-03-05 12:28 | DI.RAD.S_ITS ---
PROCEDURE: XR CHEST 1V INDICATIONS: chest pain TECHNIQUE: One view of the chest was acquired. COMPARISON: [facility], CT, CT ANGIO CHEST PE PROTOCOL, 11/19/2020, 16:31. [facility], CR, XR CHEST 1V, 11/19/2020, 14:40. [facility], CR, XR CHEST 1V, 11/20/2020, 0:09. FINDINGS: Surgical changes and devices: Proximal left humerus hardware is partially seen. Lungs and pleura: An incomplete inspiratory result is noted, causing a crowded appearance to the lung markings. No focal infiltrates are seen. No pneumothorax or significant pleural effusions are seen. Mediastinum: Mediastinal contours appear normal. Heart size is normal. There is a large hiatal hernia seen. Bones and chest wall: No suspicious bony lesions. Age-appropriate bony degenerative changes are seen. Overlying soft tissues appear unremarkable. IMPRESSION: Limited portable chest examination, without a significant cardiopulmonary abnormality identified. Large hiatal hernia. Postoperative and degenerative changes are seen. Dictated by: Refugio Mckee M.D. on 03/05/2021 at 11:47 Approved by: Refugio Mckee M.D. on 03/05/2021 at 11:48
--- NOTE | 2021-03-05 12:33 | ED_ITS ---
HPI - SOB/Dyspnea General Chief Complaint: Shortness of Breath/Dyspnea Stated Complaint: SOB/HEART FLUTTERING/NOT FEELING WELL Time Seen by Provider: 03/05/21 12:31 Source: patient and family Mode of arrival: Wheelchair Limitations: no limitations History of Present Illness HPI Narrative: This is an 79-year-old female comes in with an episode of shortness of breath and fluttering in her chest which has resolved. She states it lasted for couple hours. She woke up this morning just feeling generally unwell. Patient states that even when she was seated she felt short of breath. Her daughter states when she got home she sounded wheezy which resolved. Patient does not have any known COPD, asthma upper respiratory issues. She has not had any fevers or chills. She has felt a little bit unwell. She denies any chest pain or pressure. No lightheadedness, no dizziness, no syncope. No nausea or vomiting. No new swelling in her extremities. She was seen by EMS at home had 2 EKGs an ambulatory pulse ox which was 96%. She has a history of anxiety, GERD, Eliquis twice daily after having a pulmonary emboli after flying, she does not have any known cardiac history, no hypertension diabetes or dyslipidemia. She has had remote surgeries for colon resection which treated colon cancer, shoulder surgery bilaterally, right hip replacement. She does have some allergies. No tobacco, alcohol or illicit. Her PCP is Dr. Coulter. Related Data Home Medications Medication Instructions Recorded Confirmed citalopram 20 mg tablet 20 mg PO DAILY 03/31/20 11/19/20 omeprazole 20 mg capsule,delayed 20 mg PO DAILY 03/31/20 11/19/20 release acetaminophen 500 mg capsule 500 mg PO QID PRN 05/03/20 11/19/20 apixaban 5 mg tablet (Eliquis) 5 mg PO BID 08/19/20 11/19/20 Previous Rx's Medication Instructions Recorded oxycodone 5 mg tablet 5 - 10 mg PO Q4-5H PRN #90 tab 11/24/20 polyethylene glycol 3350 17 gram 17 gm PO DAILY PRN #30 ea 11/24/20 oral powder packet Allergies Allergy/AdvReac Type Severity Reaction Status Date / Time codeine [CODEINE] Allergy Unknown Verified 03/05/21 12:28 Penicillins [PENICILLINS] Allergy Unknown Verified 03/05/21 12:28 Review of Systems Review of Systems ROS Unobtainable: All systems reviewed & are unremarkable except as noted in HPI and below Patient History Medical History (Updated 03/05/21 @ 14:16 by Sabrina Wilkins DO) Anemia Bilateral arm fractures DVT (deep venous thrombosis) Factor 5 Leiden mutation, heterozygous Factor V Leiden GERD (gastroesophageal reflux disease) Hiatal hernia Migraine Rectocele Recurrent deep vein thrombosis (DVT) Surgical History History of cholecystectomy History of colonoscopy History of esophagogastroduodenoscopy (EGD) Hx of cholecystectomy Family History Father Cancer Brother Cancer Heart disease Social History marital status: household members: spouse occupational status: previously employed Smoking Status: Never smoker alcohol intake: never substance use type: does not use Smoking Status: Never smoker alcohol intake frequency: 0-2 drinks per day Alcohol type: wine Substance Use Type: does not use Exam Narrative Exam Narrative: GENERAL: Alert and oriented x three, obese female in mild distress. HEENT: Head normocephalic, atraumatic, EOMI, pupils reactive, face symmetric, moist mucous membranes NECK: Supple, full range of motion CARDIOVASCULAR: Regular rate and rhythm without murmurs, rubs or gallops. No JVD. RESPIRATORY: Breath sounds equal bilaterally, no wheezes rales or rhonchi. No tachypnea accessory muscle use. Speaks in full sentences. ABDOMEN: Soft, nontender. Normoactive bowel sounds all 4 quadrants. No guarding or rebound, rigidity, no mass : No CVA tenderness EXTREMITIES: Normal range of motion, no clubbing or edema. Neurovascularly intact. Neurovascularly intact bilateral lower extremities. NEUROLOGICAL: Cranial nerves II through XII grossly intact. Moving all extremities SKIN: Warm, dry, no petechiae, no rashes or lesions. Initial Vital Signs Initial Vital Signs: Vital Signs Temperature 97.6 F 03/05/21 12:23 Pulse Rate 80 03/05/21 12:23 Respiratory Rate 18 03/05/21 12:23 Pulse Oximetry 95 03/05/21 12:23 Scores HEART Score Heart Score history: Moderately Suspicious Heart Score EKG: Normal Heart Score Age: > or = 65 years old Heart Score risk factors: No known risk factors Course Orders Ordered: ED Orders 03/05/21 12:28 XR chest 1V Stat EKG-12 Lead Stat 03/05/21 12:40 COVID19 -Nasal swab/Pre-Proc Stat 03/05/21 13:15 BNP [NT-proBNP (BNP-Adult 18+)] Stat Complete Blood Count AUTO DIFF Stat Comprehensive Metabolic Panel Stat Lipase Stat Troponin & CK Cardiac Panel Stat 03/05/21 15:20 Troponin I Stat 03/05/21 15:59 EKG-12 Lead Stat Vital Signs Vital signs: Vital Signs - 8 hr 03/05/21 12:23 03/05/21 12:42 03/05/21 12:44 Temperature 97.6 F Pulse Rate 80 76 77 Respiratory Rate 18 Blood Pressure 150/64 H Pulse Oximetry 95 94 96 03/05/21 13:00 03/05/21 13:30 03/05/21 13:31 Temperature Pulse Rate 77 75 75 Respiratory Rate 22 12 24 Blood Pressure 143/68 H 131/56 L Pulse Oximetry 96 96 95 03/05/21 14:00 03/05/21 14:30 03/05/21 15:00 Temperature Pulse Rate 75 75 78 Respiratory Rate 23 Blood Pressure Pulse Oximetry 96 96 96 03/05/21 15:30 03/05/21 16:00 Temperature Pulse Rate 79 78 Respiratory Rate 19 Blood Pressure Pulse Oximetry 97 96 MDM - SOB/Dyspnea Lab Data Result diagrams: 03/05/21 13:15 03/05/21 13:15 Labs: Lab Results 03/05/21 03/05/21 03/05/21 Range/Units 12:40 13:15 13:15 WBC 6.8 (4.5-11.0) X10^3/uL RBC 4.39 (4.0-5.2) X10^6/uL Hgb 10.2 L (12.0-16.0) g/dL Hct 32.9 L (36-46) % MCV 75.1 L (80-100) fL MCH 23.2 L (26-34) PG MCHC 30.9 (30-36) % RDW 16.2 H (11.6-14.8) % Plt Count 270 (150-400) X10^3/uL Neut % (Auto) 73.8 (50-75) % Lymph % (Auto) 14.8 L (25-40) % [place] % (Auto) 8.4 (3-14) % Eos % (Auto) 2.4 (2-4) % Baso % (Auto) 0.6 (0-2) % Neut # (Auto) 5000 (1831-1974) /uL Lymph # (Auto) 1000 L (5478-6108) /uL [place] # (Auto) 600 (0-900) /uL Eos # (Auto) 200 (0-450) /uL Baso # (Auto) 0 (0-100) /uL Sodium 140 (137-145) mmol/L Potassium 4.0 (3.4-5.1) mmol/L Chloride 107 (98-107) mmol/L Carbon Dioxide 29 (22-32) mmol/L BUN 12 (7-17) mg/dL Creatinine 0.56 (0.52-1.04) mg/dL Estimated GFR > 60.0 (>60) mL/min BUN/Creatinine Ratio 21.4 (6-22) Glucose 96 (80-110) mg/dL Calcium 8.9 (8.4-10.2) mg/dL Total Bilirubin 0.2 (0.2-1.3) mg/dL AST 17 (14-36) IU/L ALT 12 (<35) IU/L Alkaline Phosphatase 83 (38-126) U/L Total Creatine Kinase 51 (30-135) U/L CK-MB (CK-2) TNP CK-MB (CK-2) Rel Index TNP Troponin I < 0.012 (0.01-0.034) ng/mL NT-Pro-B Natriuret Pep 221 (<450) pg/mL Total Protein 7.1 (6.3-8.2) g/dL Albumin 4.0 (3.5-5.0) g/dL Globulin 3.1 (1.7-4.1) g/dL Albumin/Globulin Ratio 1.3 (1.0-2.8) Lipase 40 (23-300) U/L SARS-CoV-2 (PCR) Negative (Negative) 03/05/21 Range/Units 15:20 WBC (4.5-11.0) X10^3/uL RBC (4.0-5.2) X10^6/uL Hgb (12.0-16.0) g/dL Hct (36-46) % MCV (80-100) fL MCH (26-34) PG MCHC (30-36) % RDW (11.6-14.8) % Plt Count (150-400) X10^3/uL Neut % (Auto) (50-75) % Lymph % (Auto) (25-40) % [place] % (Auto) (3-14) % Eos % (Auto) (2-4) % Baso % (Auto) (0-2) % Neut # (Auto) (0604-6194) /uL Lymph # (Auto) (8047-9733) /uL [place] # (Auto) (0-900) /uL Eos # (Auto) (0-450) /uL Baso # (Auto) (0-100) /uL Sodium (137-145) mmol/L Potassium (3.4-5.1) mmol/L Chloride (98-107) mmol/L Carbon Dioxide (22-32) mmol/L BUN (7-17) mg/dL Creatinine (0.52-1.04) mg/dL Estimated GFR (>60) mL/min BUN/Creatinine Ratio (6-22) Glucose (80-110) mg/dL Calcium (8.4-10.2) mg/dL Total Bilirubin (0.2-1.3) mg/dL AST (14-36) IU/L ALT (<35) IU/L Alkaline Phosphatase (38-126) U/L Total Creatine Kinase (30-135) U/L CK-MB (CK-2) CK-MB (CK-2) Rel Index Troponin I < 0.012 (0.01-0.034) ng/mL NT-Pro-B Natriuret Pep (<450) pg/mL Total Protein (6.3-8.2) g/dL Albumin (3.5-5.0) g/dL Globulin (1.7-4.1) g/dL Albumin/Globulin Ratio (1.0-2.8) Lipase (23-300) U/L SARS-CoV-2 (PCR) (Negative) Imaging Data Chest x-ray: Radiologist's Impression: [address], [place] [id number] ReportSigned Patient: Cheryl Aquino R#: [id number]: 1940Acct:[id number]/Sex: 80 / FDate of Service: 03/05/21Loc: EDAccession Number: [id number] Procedure: XR chest 1V Ordering Provider: Sabrina Wilkins D.O. PROCEDURE: XR CHEST 1V INDICATIONS: chest pain TECHNIQUE: One view of the chest was acquired. COMPARISON: [facility], CT, CT ANGIO CHEST PE PROTOCOL, 11/19/2020, 16:31. [facility], CR, XR CHEST 1V, 11/19/2020, 14:40. [facility], CR, XR CHEST 1V, 11/20/2020, 0:09. FINDINGS: Surgical changes and devices: Proximal left humerus hardware is partially seen. Lungs and pleura: An incomplete inspiratory result is noted, causing a crowded appearance to the lung markings. No focal infiltrates are seen. No pneumothorax or significant pleural effusions are seen. Mediastinum: Mediastinal contours appear normal. Heart size is normal. There is a large hiatal hernia seen. Bones and chest wall: No suspicious bony lesions. Age-appropriate bony degenerative changes are seen. Overlying soft tissues appear unremarkable. IMPRESSION: Limited portable chest examination, without a significant cardiopulmonary abnormality identified. Large hiatal hernia. Postoperative and degenerative changes are seen. Dictated by: Refugio Mckee M.D. on 03/05/2021 at 11:47 Approved by: Refugio Mckee M.D. on 03/05/2021 at 11:48 ECG Data Attestation: I personally reviewed and interpreted this ECG as follows: Prior ECG tracings: available for review Interpretation: NSR with rate of 76, MN 142 QRS 88 QTC 436. No acute ST elevation or depression. Prior from 11/19/20 no acute changes noted. EKG2. NSR with rate 78, MN 158, QRS 90, QTc 449. No acute ST changes. Similar to prior. MDM Narrative Medical decision making narrative: This is an 80-year-old female comes emergency department with an episode of shortness of breath that shortly resolved she had palpitation type symptoms at the same time and her daughter noted she seems sort of wheezy. She is on Eliquis daily which she has been taking regularly for prior pulmonary emboli. She does not have any other known cardiac history. Her EKG x2, troponin x2 is negative with no other clear acute changes. Patient does have anemia but with no change from prior 11/24/20. Covid negative. Discussed with patient she is less likely to have PE on daily Eliquis and she is adamant she does not miss doses. We discussed that if she has recurrent symptoms she should return as we have not fully evaluated for this. Patient feels comfortable with this plan. All questions answered. Return precautions discussed. Discharge Plan Departure Patient Disposition: Home Clinical Impression: Dyspnea Instructions: DI for Shortness of Breath Activity Restrictions/Additional Instructions: Your imaging, EKG and lab work today are reassuring. Please follow-up with your physician this week for recheck. If you have new or recurrent symptoms please return. Please come back for new chest, shortness of breath, lightheadedness or passing out, persistent vomiting or other new or concerning symptoms. Prescriptions: No Action citalopram 20 mg tablet 20 mg PO DAILY RF: 0 omeprazole 20 mg capsule,delayed release(DR/EC) 20 mg PO DAILY RF: 0 acetaminophen 500 mg Capsule 500 mg PO QID PRN (Reason: Pain (Scale Score 1-3)) RF: 0 Eliquis 5 mg Tablet 5 mg PO BID RF: 0 oxycodone 5 mg Tablet 5 - 10 mg PO Q4-5H PRN (Reason: Pain, Severe (7-10)) Qty: 90 RF: 0 polyethylene glycol 3350 17 gram Powder In Packet 17 gm PO DAILY PRN (Reason: Constipation) Qty: 30 RF: 3 Referrals: Verenice Coulter MD [Primary Care Provider] -
[2021-03-05 12:56] LABS: COVID19 -Nasal RAPID Negative (Negative)
[2021-03-05 13:25] LABS: Add Manual Diff / Slide Review NO; Basophils Absolute Auto 0 /uL (0-100); Basophils Percent Auto 0.6 % (0-2); Eosinophils Absolute Auto 200 /uL (0-450); Eosinophils Percent Auto 2.4 % (2-4); Hematocrit 32.9 % (36-46); Hemoglobin 10.2 g/dL (12.0-16.0); Lymphocytes Absolute Auto 1000 /uL (1100-4500); Lymphocytes Percent Auto 14.8 % (25-40); Mean Corpuscular HGB Conc 30.9 % (30-36); Mean Corpuscular Hemoglobin 23.2 PG (26-34); Mean Corpuscular Volume 75.1 fL (80-100); Monocytes Absolute Auto 600 /uL (0-900); Monocytes Percent Auto 8.4 % (3-14); Neutrophils Absolute Auto 5000 /uL (1500-7000); Neutrophils Percent Auto 73.8 % (50-75); Platelet Count 270 X10^3/uL (150-400); Red Blood Cell Count 4.39 X10^6/uL (4.0-5.2); Red Cell Distribution Width 16.2 % (11.6-14.8); White Blood Cell Count 6.8 X10^3/uL (4.5-11.0)
[2021-03-05 13:36] LABS: Alanine Aminotransferase 12 IU/L (<35); Albumin Globulin Ratio 1.3 (1.0-2.8); Alkaline Phosphatase 83 U/L (38-126); Aspartate Aminotransferase 17 IU/L (14-36); BUN Creatinine Ratio 21.4 (6-22); Bilirubin Total 0.2 mg/dL (0.2-1.3); Blood Urea Nitrogen 12 mg/dL (7-17); Calcium 8.9 mg/dL (8.4-10.2); Carbon Dioxide 29 mmol/L (22-32); Chloride 107 mmol/L (98-107); Creatine Kinase 51 U/L (30-135); Estimated Glomerular Filt Rate > 60.0 mL/min (>60); Globulin 3.1 g/dL (1.7-4.1); Glucose 96 mg/dL (80-110); HEMOLYSIS < 15 (0-50); Lipase 40 U/L (23-300); Sodium 140 mmol/L (137-145); Total Protein 7.1 g/dL (6.3-8.2)
[2021-03-05 13:48] LABS: NT-proBNP (BNP-Adult 18+) 221 pg/mL (<450); Troponin I < 0.012 ng/mL (0.01-0.034)
[2021-03-05 15:48] LABS: Troponin I < 0.012 ng/mL (0.01-0.034)
== END 2021-03-05 17:14 | disposition home or self-care (01) ==
PROVIDERS: Emergency Provider Emergency Medicine; PCP Student in an Organized Health Care Education/Training Program
DX: R06.00 Dyspnea, unspecified (principal); R07.9 Chest pain, unspecified; Z20.822 Contact with and (suspected) exposure to COVID-19
CPT/HCPCS: 36415; 71045; 80053; 82550; 83690; 83880; 84484; 85025; 87635; 93005; 99283; 99284; C9803

== ENCOUNTER → 2021-08-02 13:09 | Outpatient (CLI) | payer MEDICARE, OTHER, SELFPAY ==
[2020-11-19 19:06] VITALS: BMI 31.8
[2020-11-22 23:44] VITALS: PULSE 101
[2020-11-23 04:37] VITALS: RESP 15; O2SAT 98
--- NOTE | 2021-08-02 13:11 | DI.CT.S_ITS ---
PROCEDURE: CT CHEST ABD PEL W CON INDICATIONS: Colon cancer TECHNIQUE: After the administration of oral and intravenous contrast, axial sections acquired from the supraclavicular neck to the pubic symphysis. Coronal and sagittal reformats were performed. For radiation dose reduction, the following was used: automated exposure control, adjustment of mA and/or kV according to patient size. COMPARISON: [facility], CT, CT CHEST ABD PEL W CON, 07/06/2020, 11:47. FINDINGS: Image quality: Degraded by motion artifact. CHEST: Lower Neck: No enlarged lymph nodes. Thyroid: Within normal limits. Axillae: No enlarged lymph nodes. Chest Wall: Unremarkable. Lungs and Airways: No consolidation . No change in subpleural nodule within the left upper lobe posterolaterally measuring 4 mm. No change in 2 mm subpleural nodule within the left lower lobe inferolaterally. No new pulmonary nodules. Compressive atelectasis within the bilateral lower lobes adjacent to the hiatal hernia. Pleura: No pneumothorax or pleural effusions. Heart: Heart size is normal. No pericardial effusion. Thoracic Vessels: The aorta and pulmonary arteries demonstrate normal size. Mediastinum and [place]: No enlarged lymph nodes. Esophagus: No wall thickening. Large hiatal hernia containing pancreas. ABDOMEN: Liver: Unremarkable. Gallbladder: Surgically absent Biliary ducts: Unremarkable. Pancreas: Pancreas is partially herniated into the hiatal hernia, as before. Spleen: Unremarkable. Adrenal Glands: Unremarkable. Kidneys and Ureters: Unremarkable. Stomach and Bowel: Resection of the previously seen rectosigmoid junction mass. Moderate colonic stool. Stomach, small bowel loops, and colon are otherwise unremarkable. Normal appendix. Peritoneum: No abnormal intraperitoneal fluid. No free air. Ventral Wall: No hernia. Abdominal Nodes: No retroperitoneal or mesenteric adenopathy by size criteria. Vessels: Aorta and inferior vena cava are normal in size. PELVIS: Pelvic Organs: Unremarkable. Bladder: Unremarkable. Pelvic Nodes: No enlarged lymph nodes. Miscellaneous: No inguinal hernias are seen. Bones: Right hip arthroplasty. IMPRESSION: 1. Postsurgical sequelae. 2. No evidence of malignancy. 3. No change in small left lung nodules. 4. No change in large hiatal hernia containing a portion of the pancreas. Dictated by: Dax Medley M.D. on 08/02/2021 at 16:38 Approved by: Dax Medley M.D. on 08/02/2021 at 16:59
== END ==
PROVIDERS: PCP Student in an Organized Health Care Education/Training Program; Referring Provider Internal Medicine Hematology & Oncology; Visit Provider Internal Medicine Hematology & Oncology
DX: C18.7 Malignant neoplasm of sigmoid colon (principal); D50.9 Iron deficiency anemia, unspecified; R91.8 Other nonspecific abnormal finding of lung field; K44.9 Diaphragmatic hernia without obstruction or gangrene
CPT/HCPCS: 71260; 74177; Q9967

== ENCOUNTER → 2021-08-07 13:05 | Outpatient (CLI) | payer MEDICARE, OTHER, SELFPAY ==
[2020-11-19 19:06] VITALS: BMI 31.8
[2020-11-22 23:44] VITALS: PULSE 101
[2020-11-23 04:37] VITALS: RESP 15; O2SAT 98
--- NOTE | 2021-08-07 13:06 | DI.MRI.S_ITS ---
PROCEDURE: MR BRAIN (IAC) WWO CON INDICATIONS: SUDDEN HEARING LOSS OF LEFT EAR TECHNIQUE: Noncontrast sagittal T1 spin echo, axial FLAIR, axial gradient echo, axial diffusion and ADC through the brain. Axial thin-slice 3D CISS, coronal TruFISP, axial T1 spin echo with fat saturation through the internal auditory canals. After the administration of contrast, thin slice axial and coronal T1 spin echo with fat saturation through the internal auditory canals, and axial T1 spin echo with fat saturation through the brain. COMPARISON: None. FINDINGS: Image quality: Excellent. No cerebellopontine angle masses. Visualized cranial nerves demonstrate no areas of mass lesion, abnormal signal or enhancement. The ventricular system and cortical sulci demonstrate atrophy, consistent for the patient's stated age. There are areas of increased T2/FLAIR signal intensity within the periventricular and subcortical white matter. There is no acute intra-or extra axial fluid collection. No acute hemorrhage, mass lesion or midline shift. Brainstem is unremarkable. There are no areas of restricted diffusion. Globes are symmetrical. Sinuses are aerated. Moderate fluid is present within the right mastoid air cells. Osseous structures are intact. IMPRESSION: 1. No acute intracranial process. 2. Moderate atrophy and chronic microvascular ischemic changes. 3. Moderate fluid within the right mastoid air cells. Recommend correlation potential mastoiditis. 4. No cerebellopontine angle masses or areas of abnormal enhancement, signal or mass lesion within the visualized cranial nerves. Dictated by: Flores Medina M.D. on 08/08/2021 at 14:14 Approved by: Flores Medina M.D. on 08/08/2021 at 14:17
== END ==
PROVIDERS: PCP Student in an Organized Health Care Education/Training Program; Referring Provider Otolaryngology Otology & Neurotology; Visit Provider Otolaryngology Otology & Neurotology
DX: H90.A22 Sensorineural hearing loss, unilateral, left ear, with restricted hearing on the contralateral side (principal)
CPT/HCPCS: 70553; A9579

== ENCOUNTER → 2021-09-15 11:42 | Outpatient (CLI) | payer MEDICARE, OTHER, SELFPAY ==
[2020-11-19 19:06] VITALS: BMI 31.8
[2020-11-22 23:44] VITALS: PULSE 101
[2020-11-23 04:37] VITALS: RESP 15; O2SAT 98
--- NOTE | 2021-09-15 | DI.ECHO.S_ITS ---
[facility]---------+ [facility] +---------+ : : [address] : : : : [id number] : : : : Phone: [phone] Echocardiogram Report + + :Name: IMAN GRAMAJO Study Date: 09/15/2021 Height: 65 in : :[facility] ReadingLocation: Weight: 190 lb : : Gender: Female BSA: 1.9 m2 : :: 1940 Age: 81 yrs BP: 161/90 mmHg: :Reason For Study: pre-op eval : :Ordering Physician: MAHAD, : :GUILHERME Performed By: Joaquin Hoyos : :Referring: GUILHERME TOBIN : + + Interpretation Summary The ejection fraction is estimated to be 60-65%. Diastolic parameters suggest probable normal left ventricular diastolic function and normal filling pressures. The right ventricle is normal in size and function. There is mild tricuspid regurgitation. PASP is approximately 30 to 35 mmHg. Procedure: A two-dimensional transthoracic echocardiogram with color flow and Doppler was performed. The study quality was technically difficult. There is no prior echocardiogram noted for this patient. Left Ventricle: The left ventricle is normal in size and wall thickness. The left ventricle is not well visualized. Left ventricular systolic function is normal. The ejection fraction is estimated to be 60-65%. Diastolic parameters suggest probable normal left ventricular diastolic function and normal filling pressures. Right Ventricle: The right ventricle is normal in size and function. Atria: Both atria are normal in size. The interatrial septum grossly appears intact with no obvious evidence for an atrial septal defect. Mitral Valve: There is mild mitral annular calcification. There is no mitral regurgitation noted. Aortic Valve: The aortic valve is trileaflet. There is no aortic valve stenosis. No aortic regurgitation is present. Tricuspid Valve: The tricuspid valve is normal in structure and function. There is mild tricuspid regurgitation. PASP is approximately 30 to 35 mmHg. Pulmonic Valve: The pulmonic valve is not well visualized. There is trace pulmonic regurgitation. Great Vessels: The aortic root is normal size. The dimensions of the ascending aorta are normal. The IVC is of normal diameter and collapses greater than 50% with a sniff. This suggests a low right atrial pressure of 3 mm Hg. Pericardium/ Pleura There is no pericardial effusion. There is no pleural effusion. MMode/2D Measurements & Calculations LVIDd: 3.7 cm LVOT diam: 2.0 cm LVIDs: 2.5 cm Ao root diam: 3.1 cm FS: 32.4 % asc Aorta Diam: 3.4 cm IVSd: 0.90 cm LVPWd: 0.80 cm LV allen. diameter/BSA (cm/m^2): 1.9 LV sys. diameter/BSA (cm/m^2): 1.3 LA A2 area: 16.5 cm2 RA long axis: 4.2 cm LA A4 area: 15.2 cm2 LA length (vol): 5.1 cm LA vol: 41.6 ml LA vol index: 21.5 ml/m2 TAPSE_phl: 2.4 cm Doppler Measurements & Calculations Ao V2 max: 161.0 cm/sec LVOT Max Andre: 127.0 cm/sec Ao V2 mean: 104.0 cm/sec LV V1 max P.5 mmHg Ao max P.0 mmHg LV V1 VTI: 29.6 cm Ao mean P.0 mmHg RUDY(I,D): 2.8 cm2 Ao V2 VTI: 33.2 cm RUDY(V,D): 2.5 cm2 sev ratio: 0.89 RUDY indexed to BSA (cm^2/m^2): 1.4 MV E max andre: 91.3 cm/sec TR max andre: 251.0 cm/sec MV A max andre: 100.0 cm/sec TR max P.2 mmHg MV E/A: 0.91 Med Peak E' Andre: 7.7 cm/sec E/E' med: 11.8 Lat Peak E' Andre: 7.8 cm/sec E/E' lat: 11.7 E/e' average: 11.7 MV dec time: 0.19 sec SV(LVOT): 93.0 ml AV VR_phl: 0.79 RUDY(VTI)/BSA_phl: 1.4 MV P1/2t-pr_phl: 56.0 msec Reading Physician:02:07 PM
== END ==
PROVIDERS: PCP Student in an Organized Health Care Education/Training Program; Referring Provider Student in an Organized Health Care Education/Training Program; Visit Provider Student in an Organized Health Care Education/Training Program
DX: Z01.818 Encounter for other preprocedural examination (principal); I07.1 Rheumatic tricuspid insufficiency
CPT/HCPCS: 93306; Q9957

== ENCOUNTER → 2021-09-29 12:41 | Outpatient (CLI) | payer MEDICARE, OTHER, SELFPAY ==
[2020-11-19 19:06] VITALS: BMI 31.8
[2020-11-22 23:44] VITALS: PULSE 101
[2020-11-23 04:37] VITALS: RESP 15; O2SAT 98
[2021-09-29 13:02] LABS: COVID19 -Nasal RAPID POSITIVE (Negative)
== END ==
PROVIDERS: PCP Student in an Organized Health Care Education/Training Program; Visit Provider Surgery
DX: Z01.812 Encounter for preprocedural laboratory examination (principal); Z20.822 Contact with and (suspected) exposure to COVID-19
CPT/HCPCS: 87635; C9803

== ENCOUNTER 2021-09-29 12:53 | Day surgery (SDC) | payer MEDICARE, OTHER, SELFPAY ==
[2020-11-19 19:06] VITALS: BMI 31.8
[2020-11-22 23:44] VITALS: PULSE 101
[2020-11-23 04:37] VITALS: RESP 15; O2SAT 98
== END 2021-09-29 12:55 | disposition home or self-care (01) ==
LOC: ENDO 12:56
PROVIDERS: PCP Student in an Organized Health Care Education/Training Program; Referring Provider Surgery; Visit Provider Surgery

== ENCOUNTER → 2021-11-30 13:08 | Outpatient (CLI) | payer MEDICARE, OTHER, SELFPAY ==
[2020-11-19 19:06] VITALS: BMI 31.8
[2020-11-22 23:44] VITALS: PULSE 101
[2020-11-23 04:37] VITALS: RESP 15; O2SAT 98
[2021-11-30 14:42] LABS: COVID19 -Nasal RAPID Negative (Negative)
== END ==
PROVIDERS: PCP Family Medicine; Visit Provider Surgery
DX: Z20.822 Contact with and (suspected) exposure to COVID-19 (principal); Z01.812 Encounter for preprocedural laboratory examination
CPT/HCPCS: 87635; C9803

== ENCOUNTER 2021-12-01 10:46 | Day surgery (SDC) | payer MEDICARE, OTHER, SELFPAY ==
[2020-11-19 19:06] VITALS: BMI 31.8
[2020-11-22 23:44] VITALS: PULSE 101
[2020-11-23 04:37] VITALS: RESP 15; O2SAT 98
--- NOTE | 2021-12-01 | PATH_ITS ---
[facility] Accession Number: [id number] . 01 Material submitted: . PART A: colon - DESCENDING COLON POLYP PART B: body - ANASTOMOSIS BIOPSY . 01 Diagnosis: A. Descending Colon Polyp, Biopsy: Tubular adenoma. . B. Anastomosis, Biopsy: Positive for residual/recurrent adenocarcinoma, moderately differentiated. MRV 12/02/2021 1608 Local . 01 Electronically signed: . Farooq Marti MD, PhD, Pathologist NPI- [id number] . 01 Gross description: . Part A: DESCENDING COLON POLYP: Received in formalin is 1 fragment(s) of campbell, soft tissue measuring 0.1 x 0.1 x 0.1 cm to 0.4 x 0.4 x 0.2 cm submitted entirely in 1 cassette(s) Part B: ANASTOMOSIS BIOPSY: Received in formalin are multiple fragment(s) of campbell, soft tissue measuring 0.1 x 0.1 x 0.1 cm to 0.4 x 0.2 x 0.2 cm submitted entirely in 1 cassette(s) /MIKEL 12/02/2021 0203 Local . 01 Pathologist provided ICD-10: D12.4, C18.9 . 01 CPT . 714207, 984127 Specimen Comment: A courtesy copy of this report has been sent to [phone] Performed at: 01 [facility] [address] [place] [address], [place], [place] [id number] MD Chivo Julien MD Phone: [phone]
[2021-12-01 11:23] VITALS: BP 132/78; PULSE 78; RESP 16; TEMP 36; O2SAT 98; BMI 31.6
[2021-12-01] MEDS: LACTATED RINGERS 1,000 ML 42 ML IV (11:53)
--- NOTE | 2021-12-01 12:44 | PM.OP.1 ---
Operative Date/Time/Diagnoses Date of procedure: 12/01/21 Time of procedure: 12:44 Pre-op diagnosis: History of colon cancer Procedure & Clinicians Procedure: Colonoscopy Same procedure as scheduled: Yes Surgeon: Grupo Birmingham Operative Notes Procedure in detail: Surgeon: Grupo Birmingham MD Procedure: The patient was brought to the endoscopy suite, placed in left lateral decubitus position. The patient was connected to monitoring devices. A time-out was performed. Sedation was administered. Once the patient was adequately sedated, a digital rectal exam was performed and was normal. The scope was then inserted and advanced to the cecum where the appendiceal orifice was identified and photographed. The scope was then slowly withdrawn over greater than 6 minutes. The mucosa was thoroughly inspected. There was a 5 mm polyp in the descending colon removed with cold snare. There was prominent tissue at the anastomosis concerning for recurrent cancer. Multiple biopsies were taken with cold forceps. The scope was retroflexed in the rectum. No abnormalities were noted. The scope was straightened and removed. The patient was awakened and brought to recovery. Versed: 4 mg Fentanyl: 75 mcg EBL: 5 mL Findings: Concern for recurrent cancer at the anastomosis. Post-operative Disposition: PACU
--- NOTE | 2021-12-01 12:44 | PM.HP.1 ---
History of Present Illness History of Present Illness Date Patient Seen: 12/01/21 Time Patient Seen: 12:44 Chief complaint: [facility] [place] Narrative: Cheryl is an 81-year-old woman who was diagnosed with colorectal cancer in May of 2020. She had a low anterior resection in 2020. She has been on Eliquis for thromboembolism but is not currently taking the Eliquis. Patient History Medical History (Updated 12/01/21 @ 12:45 by Grupo Birmingham MD) Anemia Bilateral arm fractures DVT (deep venous thrombosis) Factor 5 Leiden mutation, heterozygous Factor V Leiden GERD (gastroesophageal reflux disease) Hiatal hernia Migraine Rectocele Recurrent deep vein thrombosis (DVT) Surgical History History of cholecystectomy History of colonoscopy History of esophagogastroduodenoscopy (EGD) Hx of cholecystectomy Family & Social History Family History Father Cancer Brother Cancer Heart disease Social History: household members spouse Tobacco & Substance use: Smoking Status Never smoker alcohol intake never alcohol intake frequency 0-2 drinks per day Substance Use Type does not use Meds Home Medications and Allergies Home Medications Medication Instructions Recorded Confirmed Type citalopram 20 mg tablet 20 mg PO DAILY 03/31/20 11/17/21 History omeprazole 20 mg capsule,delayed 20 mg PO DAILY 03/31/20 11/17/21 History release acetaminophen 500 mg capsule 500 mg PO QID PRN Pain (Scale 05/03/20 11/17/21 History Score 1-3) apixaban 2.5 mg tablet (Eliquis) 2.5 mg PO BID #180 tabs 03/24/21 07/28/21 Rx melatonin 5 mg tablet 5 mg PO BEDTIME PRN Insomnia 07/28/21 11/17/21 History Allergies Allergy/AdvReac Type Severity Reaction Status Date / Time codeine [CODEINE] Allergy Unknown Verified 12/01/21 11:19 Penicillins [PENICILLINS] Allergy Unknown Verified 12/01/21 11:19 Exam Vital Signs (past 8 hours): - 12/01/21 11:23 Temperature 96.8 F L Pulse Rate 78 Respiratory Rate 16 Blood Pressure 132/78 Pulse Oximetry 98 Oxygen Delivery Method Room Air Oxygen Delivery Method Room Air Const General: No acute distress Orientation: alert and awake Other: Hard of hearing Assessment & Plan Assessment and plan (1) Personal history of colon cancer: Status: Acute Plan We reviewed the risks and benefits of colonoscopy and she would like to proceed. Time Spent With Patient Critical Care time: I spent a total of [] minutes of critical care time on this patient's care today; this time is exclusive of procedural time.
[2021-12-01] MEDS: fentaNYL 250 MCG/5 ML INJ 75 MCG IV (12:56)
[2021-12-01] MEDS: MIDAZOLAM 5 MG/5 ML VIAL 4 MG IV (12:56)
[2021-12-01 13:21] VITALS: BP 112/58; PULSE 88; RESP 17; TEMP 36.6; O2SAT 98
[2021-12-01 13:26] VITALS: BP 116/46; PULSE 78; RESP 12; O2SAT 11
[2021-12-01 13:31] VITALS: BP 119/45; PULSE 78; RESP 13; TEMP 36.4; O2SAT 97
[2021-12-01 13:38] VITALS: BP 130/47; PULSE 72; RESP 19; O2SAT 97
--- NOTE | 2021-12-01 13:43 | SUR.PHASEI ---
Stable PACU stay, Dr. Birmingham spoke with pt at bedside.
== END 2021-12-01 14:19 | disposition home or self-care (01) ==
PROVIDERS: PCP Family Medicine; Referring Provider Surgery; Visit Provider Surgery
PROC: 0DJD8ZZ Inspection of Lower Intestinal Tract, Via Natural or Artificial Opening Endoscopic (ICD-10-PCS; CPT 45378; principal; 2021-12-01 12:45)
DX: Z12.11 Encounter for screening for malignant neoplasm of colon (principal); Z85.038 Personal history of other malignant neoplasm of large intestine; Z90.49 Acquired absence of other specified parts of digestive tract; D68.51 Activated protein C resistance; Z86.718 Personal history of other venous thrombosis and embolism; D12.4 Benign neoplasm of descending colon; C18.9 Malignant neoplasm of colon, unspecified
CPT/HCPCS: 45385; 45380; J2250; J3010

== ENCOUNTER → 2021-12-22 10:23 | Outpatient (CLI) | payer MEDICARE, OTHER, SELFPAY ==
[2020-11-19 19:06] VITALS: BMI 31.8
[2020-11-22 23:44] VITALS: PULSE 101
[2020-11-23 04:37] VITALS: RESP 15; O2SAT 98
--- NOTE | 2021-12-22 10:26 | DI.CT.S_ITS ---
PROCEDURE: CT CHEST ABD PEL W CON INDICATIONS: recurrent colon cancer TECHNIQUE: After the administration of oral and intravenous contrast, axial sections acquired from the supraclavicular neck to the pubic symphysis. Coronal and sagittal reformats were performed. For radiation dose reduction, the following was used: automated exposure control, adjustment of mA and/or kV according to patient size. COMPARISON:[facility], CT, CT CHEST ABD PEL W CON, 08/02/2021, 14:34. FINDINGS: Image quality: Excellent. CHEST: Lower Neck: No enlarged lymph nodes. Thyroid: Within normal limits. Axillae: No enlarged lymph nodes. Chest Wall: Unremarkable. Lungs and Airways: Small lung nodules are present, unchanged. Reference nodules are listed in the following: Nodule 1: 4 mm; left upper lobe subpleural; series 3, image 47. Nodule 2: 4 mm; left major fissure; series 3, image 128. Nodule 3: 3 mm; left lower lobe; series 3, image 135. Nodule 4: 6 mm; subpleural right middle lobe; series 3, image 100 a 5. Pleura: No pneumothorax or pleural effusions. Heart: Heart size is normal. No pericardial effusion. Thoracic Vessels: The aorta and pulmonary arteries demonstrate normal size. Mediastinum and [place]: No enlarged lymph nodes. Esophagus: No wall thickening. There is a large hiatal hernia containing gastric cardia and part of the pancreas. ABDOMEN: Liver: Unremarkable. Gallbladder: Surgically resected. Biliary ducts: Unremarkable. Pancreas: Unremarkable. Spleen: Unremarkable. Adrenal Glands: There is a 1.2 cm fat containing left adrenal nodule, most likely a myelolipoma. Right adrenal is normal. Kidneys and Ureters: No stones or hydronephrosis. No. Stomach and Bowel: There are postsurgical changes at the rectosigmoid junction. There are colonic diverticula. No CT findings to suggest acute diverticulitis. Stomach, small bowel loops, and colon are normal in caliber. Peritoneum: No abnormal intraperitoneal fluid. No free air. Ventral Wall: No hernia. Abdominal Nodes: No retroperitoneal or mesenteric adenopathy by size criteria. Vessels: Aorta and inferior vena cava are normal in size. PELVIS: Pelvic Organs: Unremarkable. Bladder: Unremarkable. Pelvic Nodes: No enlarged lymph nodes. Miscellaneous: No inguinal hernias are seen. Bones: There are postsurgical changes in left shoulder. Degenerative changes in thoracic and lumbar spine. Right hip arthroplasty. IMPRESSION: 1. Postsurgical changes at the rectosigmoid junction. 2. No evidence for recurrent or metastatic disease. 3. Stable left lung nodules. 4. Large hiatal hernia. 5. Decreased sensitivity of the test because of missed IV contrast timing. The patient developed mild throat itchiness and cough prior to initiation of scanning. No shortness of breath or erythema. Recommend precontrast treatment for future contrast enhanced CT. The patient complains of throat itching and mild cough after IV contrast administration. Contrast timing was missed as a result. I was called to evaluate the patient. The patient was comfortable without distress on the CT scanning table. The patient was scanned without complication. Recommend pre-treatment for future contrast enhanced radiological study. Dictated by: Maine Rosado M.D. on 12/22/2021 at 13:47 Approved by: Maine Rosado M.D. on 12/22/2021 at 15:36
== END ==
PROVIDERS: PCP Family Medicine; Referring Provider Internal Medicine Hematology & Oncology; Visit Provider Internal Medicine Hematology & Oncology
DX: C18.9 Malignant neoplasm of colon, unspecified (principal); R91.8 Other nonspecific abnormal finding of lung field; K44.9 Diaphragmatic hernia without obstruction or gangrene; E27.9 Disorder of adrenal gland, unspecified; K57.90 Diverticulosis of intestine, part unspecified, without perforation or abscess without bleeding
CPT/HCPCS: 71250; 74176

== ENCOUNTER → 2021-12-30 15:46 | Outpatient (CLI) | payer MEDICARE, OTHER, SELFPAY ==
[2020-11-19 19:06] VITALS: BMI 31.8
[2020-11-22 23:44] VITALS: PULSE 101
[2020-11-23 04:37] VITALS: RESP 15; O2SAT 98
--- NOTE | 2021-12-30 15:47 | DI.MRI.S_ITS ---
PROCEDURE: MR PELIS WO/W CON INDICATIONS: recurrent rectal CA TECHNIQUE: Coronal HASTE, sagittal T2 FSE, axial T1 FSE, axial and coronal nonbreath-hold T2 FSE. Axial dynamic VIBE during administration of contrast. Post-contrast axial and coronal VIBE/2-D FLASH with fat saturation from the iliac crests to the symphysis. Optional diffusion weighted imaging and ADC may be performed. COMPARISON: [facility], CT, CT CHEST ABD PEL W CON, 08/02/2021, 14:34. [facility], CT, CT CHEST ABD PEL W CON, 12/22/2021, 12:11. FINDINGS: Image quality: Excellent. Rectum: Postsurgical changes at the rectosigmoid junction. No discrete locally recurrent tumor. There are colonic diverticula. Fibrosis seen at the peritoneal reflection and rectosigmoid junction. Pelvic organ involvement: No hydronephrosis. Bladder is unremarkable. The endometrium measures 7-8 mm. There is an anterior subserosal fibroid. Smaller fibroids are also present. The surrounding muscles show some atrophy, but without mass. Of note, there is asymmetric atrophy of the right piriformis muscle. Unremarkable adnexal structures. Regional lymph nodes (mesorectal, inguinal, iliac): No lymphadenopathy within the field of view. There is a small stable perirectal lymph node at 5:00 (08/21) that was seen back in July. Other bowel and peritoneum: N no pathologic free fluid. No bowel obstruction. Anterior abdominal wall postsurgical changes. Bones: No suspicious osseous lesions. Lumbosacral spondylosis. Right hip arthroplasty with metallic artifact limiting evaluation of surrounding structures. IMPRESSION: Postsurgical changes at the rectosigmoid junction, without measurable mass. Scarring is evident along the peritoneal reflection and also the presacral region. No lymphadenopathy or acute pelvic findings identified within the field of view. Please see separately dictated recent CT report for other findings. Slightly thickened endometrium. Correlate for symptoms of postmenopausal bleeding. Dictated by: Gustavo Castro M.D. on 01/02/2022 at 9:46 Approved by: Gustavo Castro M.D. on 01/02/2022 at 10:03
== END ==
PROVIDERS: PCP Family Medicine; Referring Provider Surgery; Visit Provider Surgery
DX: C19 Malignant neoplasm of rectosigmoid junction (principal); M47.817 Spondylosis without myelopathy or radiculopathy, lumbosacral region; K57.90 Diverticulosis of intestine, part unspecified, without perforation or abscess without bleeding; D25.2 Subserosal leiomyoma of uterus; Z85.038 Personal history of other malignant neoplasm of large intestine; Z96.641 Presence of right artificial hip joint
CPT/HCPCS: 72197; A9579

== ENCOUNTER 2022-12-30 19:23 | Inpatient (IN) | payer MEDICARE, OTHER, SELFPAY ==
[2020-11-19 19:06] VITALS: BMI 31.8
[2020-11-22 23:44] VITALS: PULSE 101
[2020-11-23 04:37] VITALS: RESP 15; O2SAT 98
[2022-12-30] VITALS (14 sets, daily range): BP systolic 154–181; BP diastolic 80–92; PULSE 94–107; RESP 16–20; TEMP 36.8–37.1; O2SAT 84–98; BMI 30.2; BMI 31.5
--- NOTE | 2022-12-30 19:30 | DI.CT.S_ITS ---
PROCEDURE: CT ABDOMEN PELVIS W CON INDICATIONS: severe abdominal pain TECHNIQUE: After the administration of intravenous contrast, axial sections acquired from the lung bases to the pubic symphysis. Coronal and sagittal reformats were performed. For radiation dose reduction, the following was used: automated exposure control, adjustment of mA and/or kV according to patient size. COMPARISON: [facility], MR, MR PELVIS WO/W CON, 12/30/2021, 16:36. [facility], CT, CT CHEST ABD PEL W CON, 12/22/2021, 12:11. [facility], CT, CT ABDOMEN PELVIS W CON, 11/19/2020, 16:31. [facility], CT, CT ABDOMEN PELVIS W CON, 03/05/2020, 11:26. FINDINGS: Image quality: Excellent. Lung bases: Unremarkable except for presence of a very large hiatal hernia containing air-fluid level within, both in the portion above the diaphragm and below. Surrounding edema is not associated, however. Heart: No significant findings. ABDOMEN: Liver: Unremarkable except for slight intrahepatic biliary distension.. Gallbladder: Apparently previously resected. Biliary ducts: Unremarkable extrahepatic bile ducts. Pancreas: Unremarkable. Spleen: Unremarkable. Adrenal Glands: Unremarkable. Kidneys and Ureters: Unremarkable. Stomach and Bowel: Stomach is moderately distended, small bowel loops proximally are moderately distended and small in caliber more distally. The colon is unremarkable. At the lower left paramedian abdomen anteriorly there is an ostomy site, through which a nondistended colon loop transits. 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 Small bowel loops inferior from this area are relatively collapsed and therefore this might represent the site of relative obstruction. These suspected Plascencia's hernia is seen on series 2, image 46, which also includes the normal colostomy segment. Peritoneum: No abnormal intraperitoneal fluid. No free air. Ventral Wall: No hernias. Abdominal Nodes: No retroperitoneal or mesenteric adenopathy by size criteria. Vessels: Aorta and inferior vena cava are normal in size. PELVIS: Pelvic Organs: Unremarkable except for a moderate sized presumed uterine fibroid, also seen on prior MRI. Bladder: Unremarkable. Pelvic Nodes: No enlarged lymph nodes. Miscellaneous: No hernias are seen. Bones: Unremarkable. IMPRESSION: Significant small-bowel obstruction. Large hiatal hernia with relative distension both above and below the diaphragmatic hiatus, containing air-fluid levels. The adjacent small bowel within the upper abdomen also is moderately dilated. This extends to a cluster of left anterolateral small-bowel loops that cross immediately adjacent to a colostomy site just to the left of midline. As discussed above 1 of the small bowel loops appears to have a component herniating through the area of the ostomy as a peristomal herniation, eccentric, and potentially a Plascencia's hernia. This is the likely site of obstructive influence given the presence of decompressed small caliber small bowel loops extending more inferiorly towards the right lower quadrant. Uterine fibroid or fibroids partially visualized, better seen by MR scanning performed 12/30/21. Postsurgical changes within the lower pelvis are present, likely representing partial colonic resection and possible superimposed radiation therapy change. Dictated by: Eric Jiménez M.D. on 12/30/2022 at 21:11 Approved by: Eric Jiménez M.D. on 12/30/2022 at 21:26
--- NOTE | 2022-12-30 19:48 | ED_ITS ---
HPI - Abdominal Pain General Chief Complaint: Abdominal Pain Stated Complaint: lower ABD pain Time Seen by Provider: 12/30/22 19:25 Mode of arrival: EMS History of Present Illness HPI narrative: 82-year-old female nonsmoker with history of DVT on Eliquis, colon cancer with colectomy and colostomy about 1 year ago presents by EMS for evaluation of severe abdominal pain with nausea and vomiting. Her pain is persistent and is made worse by motion and improves with rest. She denies any fever or chills. She denies runny nose, sore throat or cough. She denies any chest pain or trouble breathing. She denies constipation or diarrhea, states that what is in her ostomy bag is unchanged from prior. She denies new medications or diet. She is given fentanyl and Zofran by EMS in route Related Data Home Medications Medication Instructions Recorded Confirmed citalopram 20 mg tablet 20 mg PO DAILY 03/31/20 12/31/22 omeprazole 20 mg capsule,delayed 20 mg PO DAILY 03/31/20 12/31/22 release acetaminophen 500 mg capsule 500 mg PO QID PRN Pain (Scale 05/03/20 12/31/22 Score 1-3) melatonin 5 mg tablet 10 mg PO BEDTIME PRN Insomnia 07/28/21 12/31/22 Previous Rx's Medication Instructions Recorded apixaban 2.5 mg tablet (Eliquis) 2.5 mg PO BID #180 tabs 03/24/21 Allergies Allergy/AdvReac Type Severity Reaction Status Date / Time codeine [CODEINE] Allergy Unknown Verified 12/28/21 14:25 Penicillins [PENICILLINS] Allergy Unknown Verified 12/28/21 14:25 Iodinated Contrast Media Allergy Verified 12/30/22 19:46 Review of Systems Review of Systems Narrative: GENERAL: Denies chills, fatigue, malaise, fever, sweats. HEENT: Denies sinus pain, ear pain, sore throat, difficulty swallowing, dizziness. RESPIRATORY: Denies dyspnea, cough, wheezing, hemoptysis, sputum. CARDIOVASCULAR: Denies chest pain, palpitations, orthopnea, edema, GASTROINTESTINAL: See HPI : Denies dysuria, frequency, incontinence, hematuria, urinary retention. MUSCULOSKELETAL: denies weakness, joint pain, or bony pain SKIN: Denies rash, skin lesions, or other NEUROLOGIC: Denies weakness, headache, numbness, change in speech, confusion, seizures, incoordination. PSYCHIATRIC: No concerning psychosocial issues. 12 point review of systems is negative except for those stated above Patient History Medical History (Updated 12/30/22 @ 21:56 by Keagan Chavez DO) Anemia Bilateral arm fractures DVT (deep venous thrombosis) Factor 5 Leiden mutation, heterozygous Factor V Leiden GERD (gastroesophageal reflux disease) Hiatal hernia Migraine Rectocele Recurrent deep vein thrombosis (DVT) Surgical History History of cholecystectomy History of colonoscopy History of esophagogastroduodenoscopy (EGD) Hx of cholecystectomy Family History Father Cancer Brother Cancer Heart disease Social History marital status: household members: spouse occupational status: previously employed Smoking Status: Never smoker alcohol intake: never substance use type: does not use Smoking Status: Never smoker alcohol intake frequency: 0-2 drinks per day Alcohol type: wine Substance Use Type: does not use Exam Narrative Exam Narrative: GENERAL: [82] year old patient appears stated age. Well-developed patient, in mild distress. HEAD: Atraumatic. Normocephalic. EYES: Pupils equal round and reactive. Extraocular motions intact. No scleral icterus. No injection or drainage. ENT: Nose without bleeding, purulent drainage. Throat without erythema, t onsillar hypertrophy or exudate. Airway patent. NECK: Trachea midline. Non tender CARDIOVASCULAR: Regular rate and rhythm without murmurs, gallops, or rubs. RESPIRATORY: Clear to auscultation. Breath sounds equal bilaterally. No wheezes, rales, or rhonchi. GASTROINTESTINAL: Abdomen slightly distended, tender throughout, stool in ostomy, bowel sounds present in all 4 quadrants EXTREMITIES: No edema or joint tenderness. BACK: Nontender without deformity or crepitance. No flank tenderness. NEURO: AOx3. SKIN: No rash or erythema of visible areas Initial Vital Signs Initial Vital Signs: Vital Signs Pulse Rate 101 H 12/30/22 19:27 Pulse Oximetry 84 L 12/30/22 19:27 Course Orders Ordered: Fentanyl (Fentanyl 100 Mcg/2 Ml Inj) 50 mcg IV Q2HR PRN PRN Reason: Pain, Severe (7-10) Last Admin: 12/31/22 03:19 Dose: 50 mcg Documented By: DELFINO Sodium Chloride (Normal Saline 0.9%) 1,000 mls @ 125 mls/hr IV CONT [facility] Last Admin: 12/31/22 00:06 Dose: 125 mls/hr Documented By: DELFINO Ondansetron HCl (Ondansetron 4 Mg/2 Ml Inj) 4 mg IV Q4HR PRN PRN Reason: Nausea And Vomiting Last Admin: 12/31/22 03:21 Dose: 4 mg Documented By: DELFINO Discontinued Medications Diphenhydramine HCl (Diphenhydramine 50 Mg/Ml Vial) 25 mg IV NOW ONE Stop: 12/30/22 19:46 Last Admin: 12/30/22 19:51 Dose: 25 mg Documented By: SURAJ Famotidine (Famotidine 20 Mg/2 Ml Vial) 20 mg IV NOW [facility] Last Admin: 12/30/22 19:53 Dose: 20 mg Documented By: SURAJ Fentanyl (Fentanyl 100 Mcg/2 Ml Inj) 50 mcg IV NOW ONE Stop: 12/30/22 20:39 Last Admin: 12/30/22 20:44 Dose: 50 mcg Documented By: SURAJ Sodium Chloride (Normal Saline 0.9%) 1,000 mls @ 1,000 mls/hr IV BOLUS ONE Stop: 12/30/22 20:28 Last Infusion: 12/30/22 22:13 Dose: 0 mls/hr Documented By: Admin: 12/30/22 20:44 Dose: 1,000 mls/hr Documented By: SURAJ Methylprednisolone (Methylprednisolone 125 Mg/2 Ml Vial) 125 mg IV NOW ONE Stop: 12/30/22 19:46 Last Admin: 12/30/22 19:51 Dose: 125 mg Documented By: SURAJ Midazolam HCl (Midazolam 2 Mg/2 Ml Vial) 1 mg IV NOW ONE Stop: 12/30/22 22:06 Last Admin: 12/30/22 22:17 Dose: 1 mg Documented By: SURAJ Consultations Consultation #1: discussed with professional bass fisherman surgeon (Garo), she has reviewed history/physical and clinical course. She has reviewed imaging and requests NG tube, admission to h ospitalist, will follow closely Consultation #2: discussed with Dr. Akbar, happy to accept on his service Vital Signs Vital signs: Vital Signs - 8 hr 12/30/22 19:27 12/30/22 19:30 12/30/22 19:31 Temperature Pulse Rate 101 H 100 H Respiratory Rate Blood Pressure 178/90 H Pulse Oximetry 84 L 96 Oxygen Delivery Method 12/30/22 19:31 12/30/22 20:00 12/30/22 20:03 Temperature Pulse Rate 99 H 104 H 104 H Respiratory Rate Blood Pressure Pulse Oximetry 96 93 94 Oxygen Delivery Method 12/30/22 20:03 12/30/22 20:34 12/30/22 20:34 Temperature Pulse Rate 99 H Respiratory Rate Blood Pressure 177/83 H 181/91 H Pulse Oximetry 97 Oxygen Delivery Method 12/30/22 21:00 12/30/22 19:32 Temperature 98.7 F Pulse Rate 98 H 101 H Respiratory Rate 16 18 Blood Pressure 171/86 H Pulse Oximetry 97 84 L Oxygen Delivery Method Room Air MDM - Abdominal Pain Lab Data 12/30/22 19:55 12/30/22 19:55 Labs: Lab Results 12/30/22 12/30/22 12/30/22 Range/Units 19:55 19:55 19:55 WBC 10.4 (4.5-11.0) X10^3/uL RBC 5.01 (4.0-5.2) X10^6/uL Hgb 14.1 (12.0-16.0) g/dL Hct 42.6 (36-46) % MCV 85.0 (80-100) fL MCH 28.2 (26-34) PG MCHC 33.2 (30-36) % RDW 15.1 H (11.6-14.8) % Plt Count 270 (150-400) X10^3/uL Neut % (Auto) 87.5 H (50-75) % Lymph % (Auto) 6.9 L (25-40) % [place] % (Auto) 4.9 (3-14) % Eos % (Auto) 0.3 L (2-4) % Baso % (Auto) 0.4 (0-2) % Neut # (Auto) 9100 H (5095-9051) /uL Lymph # (Auto) 700 L (0507-6454) /uL [place] # (Auto) 500 (0-900) /uL Eos # (Auto) 0 (0-450) /uL Baso # (Auto) 0 (0-100) /uL Sodium 138 (137-145) mmol/L Potassium 3.9 (3.4-5.1) mmol/L Chloride 107 (98-107) mmol/L Carbon Dioxide 24 (22-32) mmol/L BUN 23 H (7-17) mg/dL Creatinine 0.55 (0.52-1.04) mg/dL Estimated GFR > 60 (>60) mL/min BUN/Creatinine Ratio 41.8 H (6-22) Glucose 146 H (80-110) mg/dL Lactate 0.9 (0.7-2.1) mmol/L Calcium 8.1 L (8.4-10.2) mg/dL Total Bilirubin 0.3 (0.2-1.3) mg/dL AST 30 (14-36) IU/L ALT 35 H (<35) IU/L Alkaline Phosphatase 105 (38-126) U/L Total Protein 7.0 (6.3-8.2) g/dL Albumin 3.9 (3.5-5.0) g/dL Globulin 3.1 (1.7-4.1) g/dL Albumin/Globulin Ratio 1.3 (1.0-2.8) MDM Narrative Medical decision making narrative: CC: 82F with abdominal pain as well as nausea and vomiting Complicating co-morbidities: Age, colon cancer, colectomy, colostomy, anticoagulation Data collected from: Patient Medical records reviewed: Prior notes reviewed in our EMR Differential considered, but not limited to: Bowel obstruction versus colitis versus other Exam documented above, pertinent findings include: Heart rate regular, lungs clear, abdomen slightly distended, tender throughout Lab Test results independently reviewed as above. Pertinent findings: No leukocytosis or left shift, no signs of anemia, no electrolyte or renal abnormalities Independently reviewed EKG as above Imaging studies independently reviewed: CT of abdomen and pelvis with IV contrast demonstrates a large hiatal hernia with obstructive presentation as well as a secondary small bowel obstruction Consultations: discussed with Gen Surgery and Dr. Akbar, see details above Treatments: pain control, antiemetics, attempt to place NG, but patient did not tolerate Discussion: 82-year-old female with prior abdominal surgeries presents with severe abdominal pain and nausea and vomiting. Labs are unremarkable but imaging demonstrates large hiatal hernia and bowel obstruction. Attempt to place NG but patient did not tolerate, pain controlled with fentanyl. Patient requires hospitalization for further evaluation and stabilization of her condition Discharge Plan Departure Patient Disposition: Admitted As Inpatient Clinical Impression: Partial small bowel obstruction, Hernia, hiatal Admit Date/Time: 12/30/22 21:57 Admit Provider: Amish Akbar
[2022-12-30] MEDS: diphenhydrAMINE 50 MG/ML VIAL 25 MG IV (19:51)
[2022-12-30] MEDS: methylPREDNISolone 125 MG/2 ML VIAL IV (19:51)
[2022-12-30] MEDS: FAMOTIDINE 20 MG/2 ML VIAL IV (19:53)
[2022-12-30 20:03] LABS: Add Manual Diff / Slide Review NO; Basophils Absolute Auto 0 /uL (0-100); Basophils Percent Auto 0.4 % (0-2); Eosinophils Absolute Auto 0 /uL (0-450); Eosinophils Percent Auto 0.3 % (2-4); Hematocrit 42.6 % (36-46); Hemoglobin 14.1 g/dL (12.0-16.0); Lymphocytes Absolute Auto 700 /uL (1100-4500); Lymphocytes Percent Auto 6.9 % (25-40); Mean Corpuscular HGB Conc 33.2 % (30-36); Mean Corpuscular Hemoglobin 28.2 PG (26-34); Monocytes Absolute Auto 500 /uL (0-900); Monocytes Percent Auto 4.9 % (3-14); Neutrophils Absolute Auto 9100 /uL (1500-7000); Neutrophils Percent Auto 87.5 % (50-75); Platelet Count 270 X10^3/uL (150-400); Red Blood Cell Count 5.01 X10^6/uL (4.0-5.2); Red Cell Distribution Width 15.1 % (11.6-14.8); White Blood Cell Count 10.4 X10^3/uL (4.5-11.0)
[2022-12-30 20:16] LABS: Alanine Aminotransferase 35 IU/L (<35); Albumin 3.9 g/dL (3.5-5.0); Albumin Globulin Ratio 1.3 (1.0-2.8); Alkaline Phosphatase 105 U/L (38-126); Aspartate Aminotransferase 30 IU/L (14-36); BUN Creatinine Ratio 41.8 (6-22); Bilirubin Total 0.3 mg/dL (0.2-1.3); Blood Urea Nitrogen 23 mg/dL (7-17); Calcium 8.1 mg/dL (8.4-10.2); Carbon Dioxide 24 mmol/L (22-32); Chloride 107 mmol/L (98-107); Estimated Glomerular Filt Rate > 60 mL/min (>60); Globulin 3.1 g/dL (1.7-4.1); Glucose 146 mg/dL (80-110); HEMOLYSIS 33 (0-50); Lactate (Lactic Acid) 0.9 mmol/L (0.7-2.1); Potassium 3.9 mmol/L (3.4-5.1); Sodium 138 mmol/L (137-145)
[2022-12-30] MEDS: SODIUM CHLORIDE 0.9% 1,000 ML 1000 ML IV (20:44)
[2022-12-30] MEDS: fentaNYL 100 MCG/2 ML INJ 50 MCG IV (20:44)
[2022-12-30] MEDS: MIDAZOLAM 2 MG/2 ML VIAL 1 MG IV (22:17)
[2022-12-30 22:29] LABS: RBC Urine None Seen (0-5/HPF); WBC Urine 1-5/HPF (0-5/HPF)
[2022-12-30 22:30] LABS: Squamous Epithelial Cell Urine 10-30 /HPF (0-5/HPF)
[2022-12-30 22:31] LABS: Bacteria Urine Few (2-10)
[2022-12-30 22:32] LABS: Culture Indicated Urine Specimen Cultured
--- NOTE | 2022-12-30 22:53 | PC.NURSE ---
A total of 3 attempts by [address] NG tube, unsuccessful, Pt on thinner, nose now has mild bleeding. Provider notified. RT in to eval patient resp status after.
[2022-12-31] MEDS: SODIUM CHLORIDE 0.9% 1,000 ML 125 ML IV (00:06)
--- NOTE | 2022-12-31 01:20 | PC.ADMIT ---
[address] Admission Note: Patient admitted to ACU from ED at 23:20 via gurney. Transferred to bed via slide board transfer. A/O x 4, able to make needs known. Per ED RN, unable to place NG tube. Patient denies nausea or pain of any kind. NPO, patient aware. PIV in left hand, NS running at 125/hr. Colostomy bag intact, normal output in bag. Bed alarm on and call light within reach. The patient,Cheryl Aquino,82 y/o, was given written information regarding hospital policies, unit procedures and contact persons. Patient's smoking status: Never smoker. Vital Signs - 8 hr 12/30/22 19:27 12/30/22 19:30 12/30/22 19:31 Temperature Pulse Rate 101 H 100 H Respiratory Rate Blood Pressure 178/90 H Pulse Oximetry 84 L 96 Oxygen Delivery Method Oxygen Flow Rate 12/30/22 19:31 12/30/22 20:00 12/30/22 20:03 Temperature Pulse Rate 99 H 104 H 104 H Respiratory Rate Blood Pressure Pulse Oximetry 96 93 94 Oxygen Delivery Method Oxygen Flow Rate 12/30/22 20:03 12/30/22 20:34 12/30/22 20:34 Temperature Pulse Rate 99 H Respiratory Rate Blood Pressure 177/83 H 181/91 H Pulse Oximetry 97 Oxygen Delivery Method Oxygen Flow Rate 12/30/22 21:00 12/30/22 21:30 12/30/22 22:00 Temperature Pulse Rate 98 H 98 H 102 H Respiratory Rate 16 Blood Pressure Pulse Oximetry 97 98 93 Oxygen Delivery Method Oxygen Flow Rate 12/30/22 22:30 12/30/22 22:37 12/30/22 22:37 Temperature Pulse Rate 98 H 107 H Respiratory Rate Blood Pressure 157/92 H Pulse Oximetry 92 93 Oxygen Delivery Method Oxygen Flow Rate 12/30/22 23:00 12/30/22 23:00 12/30/22 22:04 Temperature Pulse Rate 100 H Respiratory Rate 20 Blood Pressure 158/80 H Pulse Oximetry 95 Oxygen Delivery Method Nasal Cannula Nasal Cannula Oxygen Flow Rate 2 12/30/22 19:32 Temperature 98.7 F Pulse Rate 101 H Respiratory Rate 18 Blood Pressure 171/86 H Pulse Oximetry 84 L Oxygen Delivery Method Room Air Oxygen Flow Rate
[2022-12-31] MEDS: fentaNYL 100 MCG/2 ML INJ 50 MCG IV (03:19)
[2022-12-31] MEDS: ONDANSETRON 4 MG/2 ML INJ IV (03:21)
[2022-12-31 06:50] VITALS: BP 130/65; PULSE 88; RESP 17; TEMP 36.5; O2SAT 98
[2022-12-31 07:46] VITALS: O2SAT 98
--- NOTE | 2022-12-31 09:33 | P.HP_ITS ---
History of Present Illness History of Present Illness Chief complaint: lower ABD pain [facility] Medical History (Updated 12/31/22 @ 13:08 by Ria Wyman MD) Anemia Bilateral arm fractures DVT (deep venous thrombosis) Factor 5 Leiden mutation, heterozygous Factor V Leiden GERD (gastroesophageal reflux disease) Hiatal hernia Migraine Rectocele Recurrent deep vein thrombosis (DVT) Surgical History History of cholecystectomy History of colonoscopy History of esophagogastroduodenoscopy (EGD) Hx of cholecystectomy Family History Father Cancer Brother Cancer Heart disease Social History marital status: household members: spouse occupational status: previously employed Smoking Status: Never smoker alcohol intake: never substance use type: does not use Meds Home Medications and Allergies Home Medications Medication Instructions Recorded Confirmed Type citalopram 20 mg tablet 20 mg PO DAILY 03/31/20 12/31/22 History omeprazole 20 mg capsule,delayed 20 mg PO DAILY 03/31/20 12/31/22 History release acetaminophen 500 mg capsule 500 mg PO QID PRN Pain (Scale 05/03/20 12/31/22 History Score 1-3) apixaban 2.5 mg tablet (Eliquis) 2.5 mg PO BID #180 tabs 03/24/21 12/31/22 Rx melatonin 5 mg tablet 10 mg PO BEDTIME PRN Insomnia 07/28/21 12/31/22 History psyllium husk (with sugar) 3.4 1 tbsp PO BID #822 grams 12/31/22 Rx gram/7 gram oral powder (Fiber (psyllium husk-sugar)) Allergies Allergy/AdvReac Type Severity Reaction Status Date / Time codeine [CODEINE] Allergy Unknown Verified 12/28/21 14:25 Iodinated Contrast Media Allergy Verified 12/30/22 19:46 Exam Vital Signs (past 8 hours): - 12/31/22 06:50 12/31/22 07:46 Temperature 97.7 F Pulse Rate 88 Respiratory Rate 17 Blood Pressure 130/65 Pulse Oximetry 98 98 Oxygen Delivery Method Nasal Cannula Oxygen Flow Rate 1 Oxygen Delivery Method Nasal Cannula Oxygen Flow Rate 1 Objective Labs 12/31/22 10:10 12/31/22 10:10 Labs: Laboratory Results - last 24 hr 12/30/22 12/30/22 12/30/22 19:55 19:55 19:55 WBC 10.4 RBC 5.01 Hgb 14.1 Hct 42.6 MCV 85.0 MCH 28.2 MCHC 33.2 RDW 15.1 H Plt Count 270 Neut % (Auto) 87.5 H Lymph % (Auto) 6.9 L Weak[place] % (Auto) 4.9 Eos % (Auto) 0.3 L Baso % (Auto) 0.4 Neut # (Auto) 9100 H Lymph # (Auto) 700 L Weak[place] # (Auto) 500 Eos # (Auto) 0 Baso # (Auto) 0 Sodium 138 Potassium 3.9 Chloride 107 Carbon Dioxide 24 BUN 23 H Creatinine 0.55 Estimated GFR > 60 BUN/Creatinine Ratio 41.8 H Glucose 146 H Lactate 0.9 Calcium 8.1 L Total Bilirubin 0.3 AST 30 ALT 35 H Alkaline Phosphatase 105 Total Protein 7.0 Albumin 3.9 Globulin 3.1 Albumin/Globulin Ratio 1.3 Urine RBC Urine WBC Ur Squamous Epith Cells Urine Bacteria Ur Culture Indicated? 12/30/22 22:05 WBC RBC Hgb Hct MCV MCH MCHC RDW Plt Count Neut % (Auto) Lymph % (Auto) Weak[place] % (Auto) Eos % (Auto) Baso % (Auto) Neut # (Auto) Lymph # (Auto) Weakley # (Auto) Eos # (Auto) Baso # (Auto) Sodium Potassium Chloride Carbon Dioxide BUN Creatinine Estimated GFR BUN/Creatinine Ratio Glucose Lactate Calcium Total Bilirubin AST ALT Alkaline Phosphatase Total Protein Albumin Globulin Albumin/Globulin Ratio Urine RBC None seen Urine WBC 1-5/hpf Ur Squamous Epith Cells 10-30 /hpf H Urine Bacteria Few (2-10) H Ur Culture Indicated? Specimen cultured
[2022-12-31] MEDS: SODIUM CHLORIDE 0.9% 1,000 ML 100 ML IV (09:45)
[2022-12-31 10:22] LABS: Add Manual Diff / Slide Review NO; Basophils Absolute Auto 0 /uL (0-100); Basophils Percent Auto 0.2 % (0-2); Eosinophils Absolute Auto 0 /uL (0-450); Hematocrit 40.8 % (36-46); Hemoglobin 13.2 g/dL (12.0-16.0); Lymphocytes Absolute Auto 600 /uL (1100-4500); Mean Corpuscular HGB Conc 32.4 % (30-36); Mean Corpuscular Hemoglobin 27.9 PG (26-34); Mean Corpuscular Volume 86.3 fL (80-100); Monocytes Absolute Auto 500 /uL (0-900); Monocytes Percent Auto 5.9 % (3-14); Neutrophils Absolute Auto 7800 /uL (1500-7000); Neutrophils Percent Auto 86.9 % (50-75); Platelet Count 249 X10^3/uL (150-400); Red Blood Cell Count 4.73 X10^6/uL (4.0-5.2); Red Cell Distribution Width 14.9 % (11.6-14.8)
[2022-12-31 10:31] LABS: BUN Creatinine Ratio 33.3 (6-22); Blood Urea Nitrogen 16 mg/dL (7-17); Calcium 7.8 mg/dL (8.4-10.2); Carbon Dioxide 24 mmol/L (22-32); Chloride 109 mmol/L (98-107); Estimated Glomerular Filt Rate > 60 mL/min (>60); Glucose 121 mg/dL (80-110); HEMOLYSIS 23 (0-50); Potassium 4.2 mmol/L (3.4-5.1); Sodium 139 mmol/L (137-145)
[2022-12-31] MEDS: ENOXAPARIN 40 MG/0.4 ML SYRINGE SUBCUT (10:51)
--- NOTE | 2022-12-31 10:55 | CM.DANOTE ---
Addendum entered by JOEY Quintana 12/31/22 14:31: D/c order in. It appears that HH is not needed. RV REPAIR TECHNICIAN updated patient and family that HH will not be ordered. Patient and family in verbal agreement. Plan: patient will d/c home today, transport with in POV. No needs identified at this time. CM team will continue to follow as needed. GUSTAVO Original Note: DCP Assessment Note Patient is a 82yo F here with abdominal pain/potential small bowel obstruction under the care of Dr. Akbar PCP [place] Payer Medicare and [employer] [facility] RV REPAIR TECHNICIAN reviewed EMR. RV REPAIR TECHNICIAN entered room and introduced self and role. Patient was resting in bed and appeared A/Ox4. Patient reports she believes she is here in pain because she doesn't follow her diet that was recommended for her after her colon surgery. Patient reports she lives at home in [place] with her , Rob ([phone]). Her step-daughter, Muna, also helps care for her and lives a mile away. Spouse and step daughter assists with meal prep. Patient drives. Patient has a walker, cane, shower seat, lives on one floor, and has a ramp for the few small steps in her house. Patient has used [facility] in past and is open to it again if needed for PT. Plan: pending prognosis. 1) d/c home with [facility] pending their acceptance or 2) d/c home with family when medically cleared. Transport with family. CM team will continue to follow closely. JOEY Quintana Discharge Planning/Care Management Advanced directive, confirm from FAMILY Start: 12/30/22 23:58 Freq: Q24H Status: Active Protocol: Document 12/30/22 23:58 (Rec: 12/31/22 01:16 [id number]) Advance Directive, confirm on record Time 23:20 Person contacted patient Copy received No CM Discharge Assessment Start: 12/31/22 10:51 Freq: Status: Active Protocol: Document 12/31/22 10:52 (Rec: 12/31/22 10:54 [id number]) Discharge Planning Assessment Assigned Poll Clerk JOEY Darden DPOA/Assigned Designee Name Rob Aquino (spouse) Contact Information [phone] Advance Directives? Yes Advance Directives on File No History Provided By Patient,Significant Other, Medical Record Prior Living Arrangements House Household Members spouse Type of transporation used prior to Drives own vehicle admit Independent with ADL's Yes Is patient alert and oriented? Yes Needs Assistance With Meal Prep,Home Chores / Shopping Comment and step-daughter help care for her needs Comment Has used [facility] in the past DME Already Rented / Owned Bath Bench,Elevated Toilet Seat,FWW / Walker,Cane Patient/Family Preference Home with Home Health Comment Open to HH if needed Comment Not at this time Discharge Plan Home Transportation Arrangement Family SNF/HH Preference [facility] Whiteboard Updated in Patient Room with Yes name and ext. # of Poll Clerk Review Status In Process Next Review Type Continued Stay Review
--- NOTE | 2022-12-31 12:49 | P.HP_ITS ---
History of Present Illness History of Present Illness Date Patient Seen: 12/31/22 Time Patient Seen: 09:30 Chief complaint: lower ABD pain Narrative: 82-year-old woman who presented to the emergency room last night. She has had a colostomy for about 6 months which was created for colorectal cancer. Her notes of Dr. Messer, she underwent laparoscopic-assisted low anterior resection with Dr. 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 Pathological staging was pT3, pN0 Patient's anticoagulation Eliquis was taken off before the colon resection, but did not resume after the surgery.? Patient was subsequently evaluated at the [facility] on 08/16/2020 for chest pain and dyspnea.? In-hospital CT angiogram showed multiple bilateral pulmonary emboli without evidence of right heart strain.? Cheryl was subsequently started on heparin drip and transferred to [facility] for additional management.? Upon discharge from the hospital, patient was transitioned to Eliquis 10 mg twice daily with plan to decrease to 5 mg twice daily in 14 days. She had a fall and underwent right hip hemiarthroplasty on 11/19/2020 at [facility] and did very well postoperatively. She is a somewhat circuitous historian and when asked about what symptoms she is been having she began talking about food she had eaten 4 months ago. Her primary care doctor is Dr. Mckeon and said that she could eat anything she wanted and for that reason she has been eating [place] sprouts and gastrotomy sandwiches and 4 months ago maybe had an episode of pain which settled down and did not have any problems thereafter with her colostomy. She is really hard of hearing and her is at the bedside his name is Gabriel and helps little bit with the history. He explains that they really have not had any problems with the bag over the colostomy at all and overall are pleased with that outcome. When the patient takes over the history again she begins telling me about fresh fruit that she had eaten for the last month or so and a salad with pecans and dried fruits that her made. There was some sheet that told her about all the things she was not supposed to eat and realize that maybe these foods that she has been eating recently could be contributing to her symptoms. I asked her again if she could be more specific about the symptoms rather than the foods that she has been eating and she tells me that on of this week which would have been 2 days ago now she was visiting with her daughter who is from [place]. She is concerned about her daughter who has been having severe depression can not get out of bed she is a high school science teacher but she has not visited her mother since June. She relates that there may have been some stress prior to the onset of symptoms related to this visit. She elaborates that her grandson's name is Rikki but does not want to be called that anymore and would like to be referred to as ?they? she says this is disturbing for her but she is trying to process it and she is gone to some counseling to try to understand and support her family. She further relates that her brother to whom she was very close and loves dearly was day always hit it though she did not understand she supported him and loved him. In any case that night of her grandson made a stir francois. On Sunday she began to have some severe cramping that she described as ?waves of cramps? were followed in short order by several episodes of successive emesis at least 5 times in a row. She was exhausted afterward and laid down and slept for several hours. When she woke in the evening the pain was mostly gone and she was able to sleep the rest of the night. The next morning which was yesterday she started her day with about 4 oz of grape fruit and some debby tea as the day wore on she had some small pairs and a small chunk of a stone with pecan better. Her Gabriel went to his men's group that afternoon and she was feeling much better so she went out afterwards with him but began to feel some shortness of breath while she was walking with her walker to the car even with a small amount of walking. So because of this he actually brought her some ice cream which she ate that evening and when she returned home the pain came back. It was again fairly rapid onset of cramping wave-like abdominal pain and associated with waves of emesis as well. Again the pain seemed to be relieved with lying down. After a period of relief when the cramping came back Gabriel called EMS to take her to [facility]. In the emergency room she had a CT scan that revealed a large hiatal hernia of which she has been previously aware. 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 within which there was a small knuckle of bowel. I recommended NG tube placement which was unsuccessful because of a history of a broken nose 20+ years ago and no one was able to get an NG tube down therefore she was sent to the surgical floor and treated with pain medicine her pain i mproved overnight and she awoke this morning she relates that her pain was completely gone. Currently she is feeling extremely well without nausea without any pain. She had some clear liquids this morning and is doing fine with that. Additionally her colostomy bag has put out plenty of gas and liquidy stool it is almost back to normal as far as she is concerned. [facility] Medical History (Updated 12/31/22 @ 13:08 by Ria Wyman MD) Anemia Bilateral arm fractures DVT (deep venous thrombosis) Factor 5 Leiden mutation, heterozygous Factor V Leiden GERD (gastroesophageal reflux disease) Hiatal hernia Migraine Rectocele Recurrent deep vein thrombosis (DVT) Surgical History History of cholecystectomy History of colonoscopy History of esophagogastroduodenoscopy (EGD) Hx of cholecystectomy Family History Father Cancer Brother Cancer Heart disease Social History marital status: household members: spouse occupational status: previously employed Smoking Status: Never smoker alcohol intake: never substance use type: does not use Meds Home Medications and Allergies Home Medications Medication Instructions Recorded Confirmed Type citalopram 20 mg tablet 20 mg PO DAILY 03/31/20 12/31/22 History omeprazole 20 mg capsule,delayed 20 mg PO DAILY 03/31/20 12/31/22 History release acetaminophen 500 mg capsule 500 mg PO QID PRN Pain (Scale 05/03/20 12/31/22 History Score 1-3) apixaban 2.5 mg tablet (Eliquis) 2.5 mg PO BID #180 tabs 03/24/21 12/31/22 Rx melatonin 5 mg tablet 10 mg PO BEDTIME PRN Insomnia 07/28/21 12/31/22 History psyllium husk (with sugar) 3.4 1 tbsp PO BID #822 grams 12/31/22 Rx gram/7 gram oral powder (Fiber (psyllium husk-sugar)) Allergies Allergy/AdvReac Type Severity Reaction Status Date / Time codeine [CODEINE] Allergy Unknown Verified 12/28/21 14:25 Iodinated Contrast Media Allergy Verified 12/30/22 19:46 Exam Vital Signs (past 8 hours): - 12/31/22 06:50 12/31/22 07:46 Temperature 97.7 F Pulse Rate 88 Respiratory Rate 17 Blood Pressure 130/65 Pulse Oximetry 98 98 Oxygen Delivery Method Nasal Cannula Oxygen Flow Rate 1 Oxygen Delivery Method Nasal Cannula Oxygen Flow Rate 1 Const General: cooperative, healthy appearing, comfortable, No acute distress and other (Hard of hearing, very pleasant) Nutritional Appearance: overweight HENMT Head: normal to inspection Mouth: moist mucous membranes Eyes General: appearance normal, both eyes and all related structures (For age) Resp Effort & Inspection: normal respiratory effort and able to speak in complete sentences GI Palpation: soft and No tender Other: There is a stoma in the left lower abdomen. There is gas and stool in the stoma bag. Just medial and superior to the stoma there is a palpable hernia which I reduced with gentle pressure quite easily. Defect itself appears to be about 3 cm in diameter and it reduced without tenderness. And the defect is easily palpable. At this time the patient has no abdominal tenderness the abdomen is soft nondistended. Objective Labs 12/31/22 10:10 12/31/22 10:10 Labs: Laboratory Results - last 24 hr 12/30/22 12/30/22 12/30/22 19:55 19:55 19:55 WBC 10.4 RBC 5.01 Hgb 14.1 Hct 42.6 MCV 85.0 MCH 28.2 MCHC 33.2 RDW 15.1 H Plt Count 270 Neut % (Auto) 87.5 H Lymph % (Auto) 6.9 L [place] % (Auto) 4.9 Eos % (Auto) 0.3 L Baso % (Auto) 0.4 Neut # (Auto) 9100 H Lymph # (Auto) 700 L [place] # (Auto) 500 Eos # (Auto) 0 Baso # (Auto) 0 Sodium 138 Potassium 3.9 Chloride 107 Carbon Dioxide 24 BUN 23 H Creatinine 0.55 Estimated GFR > 60 BUN/Creatinine Ratio 41.8 H Glucose 146 H Lactate 0.9 Calcium 8.1 L Total Bilirubin 0.3 AST 30 ALT 35 H Alkaline Phosphatase 105 Total Protein 7.0 Albumin 3.9 Globulin 3.1 Albumin/Globulin Ratio 1.3 Urine RBC Urine WBC Ur Squamous Epith Cells Urine Bacteria Ur Culture Indicated? 12/30/22 12/31/22 12/31/22 22:05 10:10 10:10 WBC 9.0 RBC 4.73 Hgb 13.2 Hct 40.8 MCV 86.3 MCH 27.9 MCHC 32.4 RDW 14.9 H Plt Count 249 Neut % (Auto) 86.9 H Lymph % (Auto) 7.0 L [place] % (Auto) 5.9 Eos % (Auto) 0.0 L Baso % (Auto) 0.2 Neut # (Auto) 7800 H Lymph # (Auto) 600 L [place] # (Auto) 500 Eos # (Auto) 0 Baso # (Auto) 0 Sodium 139 Potassium 4.2 Chloride 109 H Carbon Dioxide 24 BUN 16 Creatinine 0.48 L Estimated GFR > 60 BUN/Creatinine Ratio 33.3 H Glucose 121 H Lactate Calcium 7.8 L Total Bilirubin AST ALT Alkaline Phosphatase Total Protein Albumin Globulin Albumin/Globulin Ratio Urine RBC None seen Urine WBC 1-5/hpf Ur Squamous Epith Cells 10-30 /hpf H Urine Bacteria Few (2-10) H Ur Culture Indicated? Specimen cultured Assessment & Plan Assessment and plan (1) Partial small bowel obstruction: Status: Acute (2) Abdominal wall hernia: Problem details: Unclear exactly if this is truly a parastomal hernia in fact on the CT scan it looks like it maybe a distinct anterior abdominal wall hernia. I do not think it is necessarily a Plascencia's hernia but some type of ventral wall hernia indeed. Status: Acute Assessment & Plan narrative: I believe the patient's symptoms are due to temporary incarceration of the small hernia with some small bowel. The CT scan is consistent with this as well as her history and physical exam. This morning the hernia is easily reduced the defect is palpable. And she is not nauseated though she is not very hungry at the time that I saw her I think she can advance her diet as tolerated and stop her IV fluids resume her home medications and potentially be discharged today. I did classification counselor her and her how to reduce the hernia at home if she has recurrence of symptoms. Additionally I counseled her that if she is not able to reduce the hernia and if the pain returns and is persistent she may need to return to the emergency room. Generally I also discussed risks benefits and alternatives of operative repair of a ventral wall hernia in a case like this where there is partial obstructive symptoms being caused. Generally the recommendation is for repair. I returned and spent another half an hour discussing risks benefits and alternatives as well as different options for open versus laparoscopic and the steps of the procedure. Answered the questions the patient had about mesh as well as all of the complications that were discussed including but not limited to bleeding infection need for further hospitalizations or operations in the case of complications rare cases of injury to bowel or other abdominal structures strokes heart attacks blood clots other extremely rare reasons can result. She and her are at the bedside for this discussion and they verbalized understanding they have had surgeries before most recently a hip replacement that went very well here at [facility] they understand the risks and would like to proceed.
--- NOTE | 2022-12-31 14:37 | PM.DS.1 ---
History of Present Illness History of Present Illness Date Patient Seen: 12/31/22 Time Patient Seen: 14:38 Chief complaint: lower ABD pain Narrative: 82-year-old woman who presented to the emergency room last night. She has had a colostomy for about 6 months which was created for colorectal cancer. Her notes of Dr. Messer, she underwent laparoscopic-assisted low anterior resection with Dr. 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 Pathological staging was pT3, pN0 Patient's anticoagulation Eliquis was taken off before the colon resection, but did not resume after the surgery.? Patient was subsequently evaluated at the [facility] on 08/16/2020 for chest pain and dyspnea.? In-hospital CT angiogram showed multiple bilateral pulmonary emboli without evidence of right heart strain.? Cheryl was subsequently started on heparin drip and transferred to [facility] for additional management.? Upon discharge from the hospital, patient was transitioned to Eliquis 10 mg twice daily with plan to decrease to 5 mg twice daily in 14 days. She had a fall and underwent right hip hemiarthroplasty on 11/19/2020 at [facility] and did very well postoperatively. She is a somewhat circuitous historian and when asked about what symptoms she is been having she began talking about food she had eaten 4 months ago. Her primary care doctor is Dr. Mckeon and said that she could eat anything she wanted and for that reason she has been eating Lamar sprouts and gastrotomy sandwiches and 4 months ago maybe had an episode of pain which settled down and did not have any problems thereafter with her colostomy. She is really hard of hearing and her is at the bedside his name is Gabriel and helps little bit with the history. He explains that they really have not had any problems with the bag over the colostomy at all and overall are pleased with that outcome. When the patient takes over the history again she begins telling me about fresh fruit that she had eaten for the last month or so and a salad with pecans and dried fruits that her made. There was some sheet that told her about all the things she was not supposed to eat and realize that maybe these foods that she has been eating recently could be contributing to her symptoms. I asked her again if she could be more specific about the symptoms rather than the foods that she has been eating and she tells me that on of this week which would have been 2 days ago now she was visiting with her daughter who is from [place]. She is concerned about her daughter who has been having severe depression can not get out of bed she is a preschool assistant director but she has not visited her mother since June. She relates that there may have been some stress prior to the onset of symptoms related to this visit. She elaborates that her grandson's name is Rikki but does not want to be called that anymore and would like to be referred to as ?they? she says this is disturbing for her but she is trying to process it and she is gone to some counseling to try to understand and support her family. She further relates that her brother to whom she was very close and loves dearly was day always hit it though she did not understand she supported him and loved him. In any case that night of her grandson made a stir francois. On Sunday she began to have some severe cramping that she described as ?waves of cramps? were followed in short order by several episodes of successive emesis at least 5 times in a row. She was exhausted afterward and laid down and slept for several hours. When she woke in the evening the pain was mostly gone and she was able to sleep the rest of the night. The next morning which was yesterday she started her day with about 4 oz of grape fruit and some debby tea as the day wore on she had some small pairs and a small chunk of a stone with pecan better. Her Gabriel went to his men's group that afternoon and she was feeling much better so she went out afterwards with him but began to feel some shortness of breath while she was walking with her walker to the car even with a small amount of walking. So because of this he actually brought her some ice cream which she ate that evening and when she returned home the pain came back. It was again fairly rapid onset of cramping wave-like abdominal pain and associated with waves of emesis as well. Again the pain seemed to be relieved with lying down. After a period of relief when the cramping came back Gabriel called EMS to take her to [facility]. In the emergency room she had a CT scan that revealed a large hiatal hernia of which she has been previously aware. 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 within which there was a small knuckle of bowel. I recommended NG tube placement which was unsuccessful because of a history of a broken nose 20+ years ago and no one was able to get an NG tube down therefore she was sent to the surgical floor and treated with pain medicine her pain improved overnight and she awoke this morning she relates that her pain was completely gone. Currently she is feeling extremely well without nausea without any pain. She had some clear liquids this morning and is doing fine with that. Additionally her colostomy bag has put out plenty of gas and liquidy stool it is almost back to normal as far as she is concerned. Discharge Providers Provider Date of admission: 12/30/22 21:57 Discharge Date: 12/31/22 Primary care physician: Aury Reyes MD Consults: 12/30/22 23:24 Consult to General Surgery Urgent Comment: Consulting Provider: Ria Wyman Reason for consultation: SBO, hiatal hernia Has provider been notified: Yes 12/31/22 09:46 Consult to Physician Routine Comment: Consulting Provider: Ria Wyman Reason for consultation: SBO Has provider been notified: Yes Discharge provider: Ria Wyman MD Summary Hospital Course Discharge Diagnosis: Partial small-bowel obstruction due to ventral wall hernia Hospital Course: Patient was admitted and NG tube placement was not possible due to nasal problems she has had a broken nose but nonetheless she was given some pain medicine and admitted and her abdominal pain resolved she started having bowel functions and on hospital day 1 she was sent home in good condition. Based on CT scan and history and physical exam I do think that this anterior ventral wall hernia is contributing to her symptoms and I have recommended repair. I discussed with her risks benefits and alternatives and will set her up through my clinic to schedule the operation. Status at Discharge Cognitive/behavioral status at discharge: at baseline, oriented Functional status at discharge: uses cane/walker Overall status at discharge: patient is back to baseline Time Spent with Patient Time spent: Less than 30 minutes Exam Vital Signs (past 8 hours): - 12/31/22 06:50 12/31/22 07:46 Temperature 97.7 F Pulse Rate 88 Respiratory Rate 17 Blood Pressure 130/65 Pulse Oximetry 98 98 Oxygen Delivery Method Nasal Cannula Oxygen Flow Rate 1 Oxygen Delivery Method Nasal Cannula Oxygen Flow Rate 1 Objective Labs 12/31/22 10:10 12/31/22 10:10 Labs: Laboratory Results - last 24 hr 12/30/22 12/30/22 12/30/22 19:55 19:55 19:55 WBC 10.4 RBC 5.01 Hgb 14.1 Hct 42.6 MCV 85.0 MCH 28.2 MCHC 33.2 RDW 15.1 H Plt Count 270 Neut % (Auto) 87.5 H Lymph % (Auto) 6.9 L [place] % (Auto) 4.9 Eos % (Auto) 0.3 L Baso % (Auto) 0.4 Neut # (Auto) 9100 H Lymph # (Auto) 700 L [place] # (Auto) 500 Eos # (Auto) 0 Baso # (Auto) 0 Sodium 138 Potassium 3.9 Chloride 107 Carbon Dioxide 24 BUN 23 H Creatinine 0.55 Estimated GFR > 60 BUN/Creatinine Ratio 41.8 H Glucose 146 H Lactate 0.9 Calcium 8.1 L Total Bilirubin 0.3 AST 30 ALT 35 H Alkaline Phosphatase 105 Total Protein 7.0 Albumin 3.9 Globulin 3.1 Albumin/Globulin Ratio 1.3 Urine RBC Urine WBC Ur Squamous Epith Cells Urine Bacteria Ur Culture Indicated? 12/30/22 12/31/22 12/31/22 22:05 10:10 10:10 WBC 9.0 RBC 4.73 Hgb 13.2 Hct 40.8 MCV 86.3 MCH 27.9 MCHC 32.4 RDW 14.9 H Plt Count 249 Neut % (Auto) 86.9 H Lymph % (Auto) 7.0 L [place] % (Auto) 5.9 Eos % (Auto) 0.0 L Baso % (Auto) 0.2 Neut # (Auto) 7800 H Lymph # (Auto) 600 L [place] # (Auto) 500 Eos # (Auto) 0 Baso # (Auto) 0 Sodium 139 Potassium 4.2 Chloride 109 H Carbon Dioxide 24 BUN 16 Creatinine 0.48 L Estimated GFR > 60 BUN/Creatinine Ratio 33.3 H Glucose 121 H Lactate Calcium 7.8 L Total Bilirubin AST ALT Alkaline Phosphatase Total Protein Albumin Globulin Albumin/Globulin Ratio Urine RBC None seen Urine WBC 1-5/hpf Ur Squamous Epith Cells 10-30 /hpf H Urine Bacteria Few (2-10) H Ur Culture Indicated? Specimen cultured [facility] Medical History (Updated 12/31/22 @ 13:08 by Ria Wyman MD) Anemia Bilateral arm fractures DVT (deep venous thrombosis) Factor 5 Leiden mutation, heterozygous Factor V Leiden GERD (gastroesophageal reflux disease) Hiatal hernia Migraine Rectocele Recurrent deep vein thrombosis (DVT) Surgical History History of cholecystectomy History of colonoscopy History of esophagogastroduodenoscopy (EGD) Hx of cholecystectomy Family History Father Cancer Brother Cancer Heart disease Social History marital status: household members: spouse occupational status: previously employed Smoking Status: Never smoker alcohol intake: never substance use type: does not use Discharge Plan Discharge Plan Patient Disposition: Home Provider Discharge Comment: My office will call you Sunday to schedule hernia repair. If you have any questions or concerns before then please do not hesitate to call the office of [facility] and go through the answering service. Discharge orders & Medications Prescriptions: New Fiber (psyllium husk-sugar) 3.4 gram/7 gram powder 1 tbsp PO BID Qty: 822 0RF Continued citalopram 20 mg tablet 20 mg PO DAILY omeprazole 20 mg capsule,delayed release(DR/EC) 20 mg PO DAILY acetaminophen 500 mg Capsule 500 mg PO QID PRN (Reason: Pain (Scale Score 1-3)) Eliquis 2.5 mg Tablet 2.5 mg PO BID Qty: 180 3RF Patient Comments: Pt unsure of when she past took it- unsure. Maybe May. Accordingto Dr Al he said to stop it, but unable to report exactly why. melatonin 5 mg Tablet 10 mg PO BEDTIME PRN (Reason: Insomnia) Pharmacist Comment: Please take a fiber supplement at least once daily preferably twice daily I recommend the powder form with a large glass of water taken before meals. Follow up/Referrals: Ria Wyman MD [Physician] - (Please call the office as needed and my staff should contact you on Sunday to schedule hernia repair. They will discuss when to hold your Eliquis. Continue to take fiber twice daily until repair.) Aury Reyes MD [Primary Care Provider] - Diet/Activity/Treatments Diet: Diet as Tolerated and Regular Visit Report/Discharge Packet Instructions: DI for Small Bowel Obstruction Stand Alone Forms: Patient Portal/API, Stroke Signs & Symptoms Discharge Data Primary Care Provider: Aury Reyes
--- NOTE | 2022-12-31 14:51 | PC.NURSE ---
Discharge Note Patient A&O, VSS, RA, no complaints of pain/discomfort. Patient agreeable to discharge plan. Discharge packet reviewed with patient, all questions/concerns addressed. PIV discontinued. Patient able to dress self and pack all belongings with husbands assistance. Patient taken down via wheelchair to POV accompanied by .
== END 2022-12-31 14:45 | disposition home or self-care (01) | DRG 395 ==
LOC: ED 21:56 → AC 21:58
PROVIDERS: Surgery; Admitting Provider Family Medicine; Emergency Provider Emergency Medicine; PCP Family Medicine; Referring Provider Emergency Medicine; Visit Provider Family Medicine
DX: K43.6 Other and unspecified ventral hernia with obstruction, without gangrene (principal); K21.9 Gastro-esophageal reflux disease without esophagitis; Z86.718 Personal history of other venous thrombosis and embolism; Z79.01 Long term (current) use of anticoagulants
CPT/HCPCS: 36415; 74177; 80048; 80053; 81003; 81015; 83605; 85025; 87086; 94760; 96374; 96375; 99234; 99284; J1200; J1650; J2250; J2405; J2930; J3010; Q9967

== ENCOUNTER 2023-01-16 11:24 | Day surgery (SDC) | payer MEDICARE, OTHER, SELFPAY ==
[2020-11-22 23:44] VITALS: PULSE 101
[2020-11-23 04:37] VITALS: RESP 15; O2SAT 98
[2022-12-30 22:04] VITALS: BMI 31.5
[2023-01-16] VITALS (9 sets, daily range): BP systolic 109–141; BP diastolic 38–76; PULSE 72–85; RESP 10–16; TEMP 35.9–36.4; O2SAT 95–99; BMI 31.5
--- NOTE | 2023-01-16 11:26 | PM.PREOP ---
Pre-operative Note Interval Note History & Physical reviewed/Exam performed by Physician: Yes Changes to H&P: No H&P completed within 30 days and has changed as indicated here:: No changes since seen. She does say she is been having a large volume of bowel movements that are a little liquidy but attributes that to potentially radiation or unclear causes. Otherwise she is been eating well and no further obstructive symptoms. I discussed the risks benefits and alternatives of hernia repair today including but not limited to bleeding infection recurrence need for further procedures in the case rare complications such as damage to bowel. She also has been off her Eliquis for 24 hours which she has had multiple blood clots and has cancer in remission not under active treatment. So blood clots and other complications she understands the possible with any anesthesia or surgical intervention as well.
[2023-01-16] MEDS: LACTATED RINGERS 1,000 ML 42 ML IV (12:18)
[2023-01-16] MEDS: CEFAZOLIN 2 GM/100 ML PREMIX 100 ML IV (13:20)
--- NOTE | 2023-01-16 13:27 | SUR.OPER ---
Supine on padded OR bed, head on pillow, arms secured on padded arm boards at <90 degrees abduction, legs uncrossed, safety belt at thigh, tape over blanket over lower legs.
[2023-01-16] MEDS: BUPIVACAINE 0.5% (PF) 30 ML, EPINEPHrine 0.15 MG INJ (13:47)
--- NOTE | 2023-01-16 15:38 | PM.OP.1 ---
Operative Date/Time/Diagnoses Date of procedure: 01/16/23 Time of procedure: 15:38 Pre-op diagnosis: Ventral/parastomal hernia Post-op diagnosis: same Procedure & Clinicians Procedure: Ventral/parastomal hernia repair: size of defect 5 cm Same procedure as scheduled: Yes Indications: Mrs. Aquino was hospitalized with a bowel obstruction due to a Plascencia's hernia within this defect. I discussed with her the risks benefits and alternatives of repair and she with her at the bedside wished to proceed with scheduling. I again went over the risks benefits and alternatives today in the preoperative care unit and she understands and wishes to proceed with repair. Surgeon: Ria Wyman [employer] Corrosion Proofer: Andrei Zavaleta Anesthesia Type: General and Local Operative Notes Specimen(s): none sent Prosthetic devices, grafts, tissues, transplants, or devices: 6.4 cm Ventralex mesh Procedure in detail: Patient was taken to the operating room and placed supine on the operating room table. Bilateral SCDs were placed. Preoperative antibiotics administered. Her Eliquis had been held for 24 hours prior to her OR time. General endotracheal anesthesia was induced. A time-out was performed. The stoma was prepped out of the area and the abdomen was prepped and draped in the usual sterile fashion. An Ioban covering was used to secure the drapes due to their proximity to the stomal dressing, in order to ensure the security of these drapes in their location. Local anesthetic was infused upon the previously marked area where the hernia was palpable. This corresponded to the defect seen on CT scan. The images were reviewed prior to incision. A 10. Blade scalpel was used to incise over the hernia defect. The dissection was carried down through the subcutaneous tissues to delineate the fascial edge of the hernia. A hernia sac was appreciated and preserved the preperitoneal space was maintained and the peritoneal cavity was not entered. A preperitoneal pocket underneath the fascial edge was created. The fascial defect was measured at 5 cm in length and 4 cm in height. The lateral edge of the defect did appear to abut the stomal defect. Care was taken to not enter or approach bowel connected to the stoma. A 6.4 cm Ventralex mesh was placed into the defect repeat peritoneal space below the fascial edge. Using 0 Ethibond interrupted sutures the ring of the mesh was secured to the fascia. In several interrupted sutures along the periphery of the mesh. One final Ethibond suture was placed through the middle of the mesh and the 2 edges of the fascial defect to help assist with securing the mesh flat in the pocket. Next the subcutaneous layers were closed with 3-0 Vicryl interrupted suture. The skin was closed with a running 4-0 Monocryl and dressed with Steri-Strips. Patient tolerated this procedure well the EBL was minimal and the operation was very dry. She went in good condition to the postoperative care unit. Due to her age living situation and comorbidities as well as unknown ability to tolerate pain with hernia this borderline size she will be staying in an outpatient bed overnight for pain control. Complications: none Post-operative Disposition: observation Plan for aftercare: Discussed the plan for outpatient bed overnight with as well as the operation itself Rob was reached at [phone]
[2023-01-16] MEDS: IBUPROFEN 600 MG TABLET PO ×2 (16:31→21:54)
[2023-01-16] MEDS: ACETAMINOPHEN 325 MG TABLET 975 MG PO ×2 (16:31→21:54)
--- NOTE | 2023-01-16 17:20 | PC.NURSE ---
Pt arrived to room 215 @ 1600 A&OX4. VSS, afebrile on RA. Abdominal dressing C/D/I. Colostomy bag intact, empty. She denies n/v and reports pain 5/10. Scheduled tylenol , ibuprofen and prn tramadol per MD orders administered. MD notified of L eye irritation, and ordered artificial tear lubricant. Patient's spouse at bedside supportive. Patient tolerating dinner well. Due to void at 2100. Bed alarm on . Call light in place, cochlear implant attachment to L ear, items in reach, continuous monitoring.
[2023-01-16] MEDS: TRAMADOL 50 MG TABLET PO (17:27)
[2023-01-16] MEDS: POLYVINYL ALCOHOL DROPS 1 DROPS EYE-LEFT ×2 (17:36→20:53)
[2023-01-16] MEDS: DOCUSATE 100 MG CAPSULE PO (20:44)
[2023-01-16] MEDS: PSYLLIUM HUSK 1 PACKET PO (20:45)
[2023-01-16] MEDS: SODIUM CHLORIDE 0.9% FLUSH 10 ML IV (20:46)
--- NOTE | 2023-01-16 21:49 | PC.NURSE ---
Addendum entered by Marielena Mehta R.N. 01/17/23 06:23: Ambulated in [place] this morning [facility], down to ICU and then back to room; tolerated well. Denies any pain this morning and states eye has improved. Now sitting up in chair; no alarm is needed at this time. Call light is in patient's reach and verbalizes she will call if needing assistance. Original Note: Patient is alert and oriented. Left eye is tearing and complains of discomfort; some redness to scleara medially so medicated with eye drops. 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 Breath sounds diminished at bases but CTA with RA sat of 97%. HRR. Denies nausea. BT present but has not yet passed flatus; has colostomy. Incision is steri-stripped and without drainage. Incontinent of urine so has external catheter in place and urine is clear, light yellow. Is able to turn herself in bed. Gait not assessed but states she needs cane to walk related to hip surgery and weakness. Is wearing bilateral calf SCD's. States abdominal pain is 2/10 and tolerable; has scheduled pain meds ordered for 2150. Fall risk score is moderate and bed alarm is activated.
[2023-01-17 00:40] VITALS: BP 112/59; PULSE 89; RESP 16; TEMP 36.7; O2SAT 92
[2023-01-17] MEDS: IBUPROFEN 600 MG TABLET PO (03:54)
[2023-01-17] MEDS: ACETAMINOPHEN 325 MG TABLET 975 MG PO (03:54)
[2023-01-17 04:22] VITALS: BP 106/49; PULSE 75; RESP 16; TEMP 36.4; O2SAT 92
[2023-01-17] MEDS: PANTOPRAZOLE DR 20 MG TABLET PO (05:55)
[2023-01-17 07:00] VITALS: BP 111/64; PULSE 83; RESP 16; TEMP 36.1; O2SAT 93
[2023-01-17] MEDS: PSYLLIUM HUSK 1 PACKET PO (08:33)
[2023-01-17] MEDS: SODIUM CHLORIDE 0.9% FLUSH 10 ML IV (08:33)
[2023-01-17] MEDS: ENOXAPARIN 40 MG/0.4 ML SYRINGE SUBCUT (08:33)
[2023-01-17] MEDS: DOCUSATE 100 MG CAPSULE PO (08:33)
--- NOTE | 2023-01-17 08:57 | CM.DANOTE ---
DCP: Case received, EMR reviewed and met with patient. , Rob, came to the room shortly after. Introduced self and role. Was able to obtain information regarding patient's baseline activity level at home prior to her surgery. DCP assessment completed with information currently available. Patient is an 82 year old female who admitted yesterday morning to the care of the surgical team. PCP: Dr. Reyes. Payer: confirmed: Medicare/[employer] for [employer]. Patient came to the hospital via private vehicle for a surgical procedure. Patient had ventral/paratomal hernia repair. Notes indicate that patient was hospitalized recently with a bowel obstruction due to Plascencia's hernia with this defect. Patient came up to the floor secondary to co-morbidities, and for pain control. Met with patient in her room. she is pleasant, and was sitting up in her chair having breakfast. Stated, I'm feelign pretty good, and the breakfast is great. Her spouse, Rob, joined her shortly after. Confirmed that she is independent, does have a cane, and a four wheel-walker that she will use at times. She is still driving. Patient stated, I'm pretty set up well at home, I don't think that I will need anything. P: DCP to continue to follow. Patient should be able to go home when deemed medically stable. Sonia Yee RN/Copper Flotation Operator Discharge Planning/Care Management CM Discharge Assessment Start: 01/17/23 08:53 Freq: Status: Active Protocol: Document 01/17/23 08:55 (Rec: 01/17/23 08:57 [id number]) Discharge Planning Assessment Assigned Shear Operator Sonia Yee RN/Copper Flotation Operator Advance Directives? Yes Advance Directives on File No History Provided By Patient,Significant Other, Medical Record Prior Living Arrangements House Household Members spouse Type of transporation used prior to Drives own vehicle admit Independent with ADL's Yes Is patient alert and oriented? Yes Caregiver for Another No DME Already Rented / Owned FWW / Walker,Other Comment Patient also has a four wheel walker at home. Barriers to Discharge No Comment Not at this time Discharge Plan Home Transportation Arrangement Spouse Referrals Initiated None needed Whiteboard Updated in Patient Room with Yes name and ext. # of Shear Operator Review Status In Process Next Review Type Continued Stay Review Pre-Anesthesia Assessment Start: 01/10/23 08:10 Freq: Status: Complete Protocol: Document 01/10/23 08:11 TC (Rec: 01/10/23 08:29 TC [id number]) Pre-Anesthesia Assessment Patient Information Reviewed Via Chart Review H&P Completed Within 30 Days Yes Diagnostic Results BMP/CMP,CBC Comment 12/31/22 Primary Care Provider Aury Reyes Medical Clearance Received Not Applicable Seen Specialist in Last 12 Months Yes Specialist Seen Emergency,General surgeon, Oncologist Primary Language Kazakh Preferred Language Kazakh Master Esthetician Required No Weight 189 lb 9.561 oz Hx Anesthesia Reactions No Hx Family Anesthesia Reaction No Hx Malignant Hyperthermia No Hx Blood Transfusion Reaction Yes Anesthesia Review Requested No Sr. Social Media & Mobile Manager No alcohol intake never alcohol intake frequency 0-2 drinks per day Smoking Status Never smoker Substance Use Type does not use CPAP/BIPAP use not prescribed Currently Taking a Beta Yesica No Anti-Coagulant Therapy Yes: Eliquis Hx Pacemaker/ICD No Hx Urinary Self Catheterization No Diabetes No Presence of External or Internal Medical Yes: plate in left shoulder Devices Received a COVID vaccine? Yes Lives With spouse Patient Discharge Plan Description Return Home Do You Have Any Spiritual Beliefs That No May Affect Your HC Choices? Do You Have Any Cultural Practices That No May Affect Your HC Choices? Emergency Contact Name Gabriel Aquino Emergency Contact Phone Number [phone] Advance Directives? Yes Advance Directives on File No Power of Frame Stylist Yes Power of Frame Stylist Name Rob Aquino
--- NOTE | 2023-01-17 09:25 | PM.PNPO.1 ---
Subjective Subjective Date Patient Seen: 01/17/23 Time Patient Seen: 09:25 Interval history: Feels fine Exam Vital Signs (past 8 hours): - 01/17/23 04:22 01/17/23 07:00 01/17/23 07:00 Temperature 97.5 F L 97 F L Pulse Rate 75 83 Respiratory Rate 16 16 Blood Pressure 106/49 L 111/64 Pulse Oximetry 92 93 93 Oxygen Delivery Method Room Air Oxygen Flow Rate 0 0 Oxygen Delivery Method Room Air Oxygen Flow Rate 0 Narrative Exam Narrative: no complications, incision dry and intact [facility] Medical History (Updated 12/31/22 @ 13:08 by Ria Wyman MD) Anemia Bilateral arm fractures DVT (deep venous thrombosis) Factor 5 Leiden mutation, heterozygous Factor V Leiden GERD (gastroesophageal reflux disease) Hiatal hernia Migraine Rectocele Recurrent deep vein thrombosis (DVT) Surgical History History of cholecystectomy History of colonoscopy History of esophagogastroduodenoscopy (EGD) Hx of cholecystectomy Family History Father Cancer Brother Cancer Heart disease Social History marital status: household members: spouse occupational status: previously employed Smoking Status: Never smoker alcohol intake: never substance use type: does not use Assessment & Plan Post-op Postoperative Procedures: Procedures Operation Date: 01/16/23 13:00 Actual Procedure Side Surgeon p Open Ventral Wall Hernia Repair Ria Wyman MD Postoperative status: doing well Postoperative plan: routine post-op care Time Spent With Patient Time with patient: 15-24 minutes
--- NOTE | 2023-01-17 09:26 | P.DS_ITS ---
History of Present Illness History of Present Illness Date Patient Seen: 01/17/23 Time Patient Seen: 09:26 Chief complaint: Hernia Repair Narrative: s/p parastomal hernia repair Discharge Providers Provider Discharge Date: 01/17/23 Primary care physician: Aury Reyes MD Discharge provider: Aicha Lemus MD Summary Hospital Course Discharge Diagnosis: s/p parastomal hernia repair Hospital Course: Hernia repair yesterday, no complications over night, ready for discharge Status at Discharge Cognitive/behavioral status at discharge: at baseline, oriented Functional status at discharge: uses cane/walker Overall status at discharge: patient is progressing back to baseline Time Spent with Patient Time spent: Less than 30 minutes Exam Vital Signs (past 8 hours): - 01/17/23 04:22 01/17/23 07:00 01/17/23 07:00 Temperature 97.5 F L 97 F L Pulse Rate 75 83 Respiratory Rate 16 16 Blood Pressure 106/49 L 111/64 Pulse Oximetry 92 93 93 Oxygen Delivery Method Room Air Oxygen Flow Rate 0 0 Oxygen Delivery Method Room Air Oxygen Flow Rate 0 Narrative Exam Narrative: Wound dry and intact, no complications [facility] Medical History (Updated 12/31/22 @ 13:08 by Ria Wyman MD) Anemia Bilateral arm fractures DVT (deep venous thrombosis) Factor 5 Leiden mutation, heterozygous Factor V Leiden GERD (gastroesophageal reflux disease) Hiatal hernia Migraine Rectocele Recurrent deep vein thrombosis (DVT) Surgical History History of cholecystectomy History of colonoscopy History of esophagogastroduodenoscopy (EGD) Hx of cholecystectomy Family History Father Cancer Brother Cancer Heart disease Social History marital status: household members: spouse occupational status: previously employed Smoking Status: Never smoker alcohol intake: never substance use type: does not use Discharge Assessment & Plan Assessment and Plan Assessment: S/p parastomal hernia repair Plan of Treatment: Discharge home with no heavy lifting. Post op check with Dr. Wyman Discharge Plan Discharge Plan Patient Disposition: Home Provider Discharge Comment: The hernia repair went well a small mesh was placed under the defect. Please call the office for [facility] with any question or concern there is a surgeon on-call 24 hours a day 7 days a week. These especially report any signs of infection like redness or drainage or troubles with the wound. Report any symptoms such as nausea vomiting difficulty eating or difficulty with stoma function, new bulges or pain around the area. Discharge orders & Medications Discharge Orders: Discharge (Order); Ordered 01/17/23 Ordered By: Aicha Lemus Prescriptions: New tramadol 50 mg Tablet 100 mg PO QID PRN (Reason: Pain, Moderate (4-6)) Qty: 20 0RF Continued omeprazole 20 mg capsule,delayed release(DR/EC) 20 mg PO DAILY acetaminophen 500 mg Capsule 500 mg PO QID PRN (Reason: Pain (Scale Score 1-3)) Eliquis 2.5 mg Tablet 2.5 mg PO BID Qty: 180 3RF Patient Comments: Pt unsure of when she past took it- unsure. Maybe May. Accordingto Dr Al he said to stop it, but unable to report exactly why. melatonin 5 mg Tablet 10 mg PO BEDTIME PRN (Reason: Insomnia) Fiber (psyllium husk-sugar) 3.4 gram/7 gram powder 1 tbsp PO BID Qty: 822 0RF Follow up/Referrals: Ria Wyman MD [Physician] - 01/30/23 9:45 am (Appt:01/30 @ 9:[address] Wyman please arrive 15 min prior to scheduled appointment time ) Aury Reyes MD [Primary Care Provider] - Diet/Activity/Treatments Diet: Diet as Tolerated and Regular Activity: No lifting greater than 30 lb for 4 weeks after surgery. Do not do any strenuous activity. Normal activity such as walking outside and climbing stairs, is ok. If you notice pain, stop. You may drive when you no longer are taking Narcotic pain medication. Skin/Wound/Dressing Care Report to your healthcare provider any signs of infection, such as:: chills, fever, night sweats, increased pain, unusual drainage and unusual redness Other wound treatment: Ok to shower, let water run over it, don't scrub. No ointments. Pat dry afterwards. No tub baths, and don't soak underwater, for 2 weeks. There are Steristrips covering the wound but also stitches under the skin which will dissolve. Visit Report/Discharge Packet Stand Alone Forms: Patient Portal/API Discharge Data Primary Care Provider: Aury Reyes Attending Provider: Ria Wyman
--- NOTE | 2023-01-17 10:11 | PC.NURSE ---
IV removed. Discussed pain medication, resuming prior meds, alternative pain relief measures, s/s of infection and s/s of stroke, diet, and activity. Provided education on hernia repair post operative care and restrictions. Pt has no further questions. Wheeled out to private vehicle via wheelchair by PCT and accompanied by spouse.
== END 2023-01-17 10:14 | disposition home or self-care (01) ==
LOC: OR 11:25 → AC 11:25
PROVIDERS: PCP Family Medicine; Referring Provider Surgery; Visit Provider Surgery
PROC: (CPT 49594; principal; 2023-01-16 13:00)
DX: K43.6 Other and unspecified ventral hernia with obstruction, without gangrene (principal); Z93.3 Colostomy status; Z86.718 Personal history of other venous thrombosis and embolism; Z79.01 Long term (current) use of anticoagulants
CPT/HCPCS: 49594; J0171; J0330; J0690; J1100; J1650; J2405; J2704; J3010

== ENCOUNTER → 2024-12-17 11:20 | Outpatient (CLI) | payer MEDICARE, OTHER, SELFPAY ==
[2020-11-22 23:44] VITALS: PULSE 101
[2020-11-23 04:37] VITALS: RESP 15; O2SAT 98
[2023-01-16 16:44] VITALS: BMI 31.5
[2024-12-17 12:35] LABS: Appearance Urine UA SL CLOUDY; Bilirubin Urine UA NEGATIVE (NEGATIVE); Color Urine UA YELLOW; Glucose Urine UA NEGATIVE (Negative); Ketones Urine UA TRACE (NEGATIVE); Leukocyte Esterase Urine UA 1+ (NEGATIVE); Nitrite Urine UA NEGATIVE (Negative); Occult Blood Urine UA NEGATIVE (Negative); Protein Urine UA TRACE (Negative); Specific Gravity Urine UA 1.020 (1.000-1.035); Urobilinogen Urine UA 1.0 E.U./dL (0.2)
[2024-12-17 12:36] LABS: pH Urine UA 5.5 (4.5-8.0)
[2024-12-17 12:43] LABS: Culture Indicated Urine Specimen Cultured
== END ==
PROVIDERS: PCP Family Medicine; Visit Provider Obstetrics & Gynecology Gynecology
DX: R32 Unspecified urinary incontinence (principal)
CPT/HCPCS: 81001; 87077; 87086; 87186